=== PATIENT | male | born 1950 | race Caucasian/White ===

== ENCOUNTER 2018-12-03 08:35 | Outpatient (CLI) | payer MEDICARE, BC, SELFPAY ==
[2018-12-03 10:14] LABS: Iron 223 ug/dL (50-175); Total Iron Binding Capacity 273 ug/dL (250-450); Transferrin Sat 82 % (20-55)
[2018-12-03 10:16] LABS: ALT 80 U/L (12-78); AST 41 U/L (15-37); Albumin 3.8 g/dL (3.4-5.0); Alkaline Phosphatase 127 U/L (46-116); Anion Gap 10.1 mmol/L (3-11); BUN 16 mg/dL (7-18); Bilirubin, Total 2.1 mg/dL (0.2-1.0); CO2 24.9 mmol/L (21.0-32.0); CREATININE 0.82 mg/dL (0.70-1.30); Calcium 9.1 mg/dL (8.5-10.1); Chloride 102 mmol/L (98-107); Cholesterol 116 mg/dL (50-200); Glucose 197 mg/dL (70-100); HDL Cholesterol 35 mg/dL (40-60); LDL CHOLESTEROL 56 mg/dL (<100); Potassium 4.4 mmol/L (3.5-5.1); Sodium 137 mmol/L (136-145); Total Protein 6.8 g/dL (6.4-8.2); Triglyceride 192 mg/dL (30-150)
== END 2018-12-03 08:55 ==
PROVIDERS: PCP Family Medicine; Visit Provider Family Medicine
DX: Z83.49 Family history of other endocrine, nutritional and metabolic diseases (principal); E78.89 Other lipoprotein metabolism disorders; E61.1 Iron deficiency
CPT/HCPCS: 80053; 80061; 83721; 83540; 83550

== ENCOUNTER → 2019-12-08 09:24 | Outpatient (BNVA) | payer MEDICARE, BC, SELFPAY | PROVIDERS: PCP Family Medicine; Referring Provider Family Medicine; Visit Provider Surgery | DX: Z12.11 Encounter for screening for malignant neoplasm of colon (principal); Z80.0 Family history of malignant neoplasm of digestive organs; Z86.010 Personal history of colon polyps; I10 Essential (primary) hypertension | CPT/HCPCS: 99212 ==

== ENCOUNTER 2019-12-23 08:56 | Day surgery (SDC) | payer MEDICARE, BC, SELFPAY ==
[2019-12-23 09:04] VITALS: BP 154/88; PULSE 72; RESP 18; TEMP 36.9; O2SAT 98
[2019-12-23] MEDS: Lactated Ringers 1,000 ML 100 ML IV (09:28)
--- NOTE | 2019-12-23 11:37 | PDOC.DSDIS_ITS ---
Discharge Plan Disposition Patient Disposition: HOME Condition: Good Discharge Details Reason For Visit: colon scope Attending Provider: Liberty Hoffman Primary Care Provider: Dayron Gusman Home Meds and New Rx's Prescriptions: No Action glucosamine-chondroitin [Osteo Bi-Flex] 250-200 mg tablet 1 tab PO QPC RF: 0 turmeric 400 mg capsule 400 mg PO DAILY RF: 0 magnesium gluconate [Mag-G] 27 mg magnesium (500 mg) tablet 27 mg PO DAILY RF: 0 cholecalciferol (vitamin D3) 10 mcg (400 unit) capsule 10 mcg PO DAILY RF: 0 Discharge Instructions Additional Instructions: Findings: nl colon Follow up: repeat in 5 yrs depending on health status Please call if you develop: fevers >101.5 Nausea or Vomiting Abdominal pain that is not transient DAY SURGERY UNIT POST COLONOSCOPY INSTRUCTIONS 1. Because there will be medication in your system for the next 24 hours, you may feel a little sleepy. Your coordination will be affected. Therefore: a. Do not drive or operate dangerous equipment for 24 hours. b. Do not drink alcohol beverages for 24 hours (not even beer). c. Plan to go home and rest for the day. 2. Generally there are no restrictions on your activity after a day or so has gone by, but you may feel a bit fatigued for a few days. 3 After you arrive home you may have a light meal and return to a normal diet as you can tolerate it without feeling sick to your stomach. 4. After surgery, you may feel pain or discomfort. This should be only transient, but if it persists please contact your doctor. 5. If there are any questions regarding the findings of your procedure, please f eel free to contact your doctor. 6. If you are unable to contact your doctor with a problem, contact the hospital at [phone]. 7. Continue all your regular medications unless directed otherwise. I understand the above instructions and have no questions. Signature of Patient or Responsible Adult Escort Date/Time Name of Responsible Adult Escort Signature of Nurse Date/Time Activity:: no strenuous acitity or lifting over 20#'s x 24 hrs Diet:: small light meals x 24 hrs. Discharge Orders Discharge Orders: Discharge Order (Routine); Ordered 12/23/19 Ordered By: Liberty Hoffman DS: Diagnosis Discharge Diagnosis (1) Family hx of colon cancer: Status: Acute (2) Encounter for colonoscopy in patient with family history of colon cancer: Status: Acute (3) Colorectal polyps: Status: Acute
--- NOTE | 2019-12-23 11:53 | COLE_ITS ---
Date of service: 12/23/19 Time of Service: 11:53 Colonoscopy Report Date of procedure: 12/23/19 Pre-op diagnosis general: polyps/1st degree family member w/ CRC <age 60 at Dg Post-op diagnosis procedure note: other (nl colon today ) Procedure: CE Surgeon: Liberty Hoffman Anesthesia proc note operative: MAC Estimated blood loss (mL): 0 Pathology: other Complications: None Disposition: same day Prep: Miralax/Dulcolax Retraction Time: 12 mins Procedure Description: After informed consent was obtained the patient was taken to the procedure room and placed in a left decubitous position. Monitors were applied and a time out was done. The patients name, date of , procedure, allergies to medications and metal in their body was reviewed. The patient was then sedated. Once sedated and comfortable a rectal exam was done. External exam was normal. Internal exam revealed a normal sphincter tone and no palpable masses. The prostate nl. The scope was then introduced and retrofelexed. No internal hemorrhoids were identified. The scope was then advanced to the cecum [w/out difficulty. The TI and appendiceal orifice were identified. The prep was adequate. There was retained solid debry coating the juan on the right colon. Lesions smaller than <5mm may have been missed. . The scope was then slowly retracted over 12 minutes back into the rectum. Polyps were removed at none. no diverticular or AVMS'd noted. The scope was removed and the patient was woken up and taken back to Same day surgery in stable condition. The patient tolerated the procedure well and there were no immediate complications. Follow up: The patient should follow up in 5 years- if the pt is still n good health, unless they develop changes in bowel habits or other new gastroi ntestinal complaints.
[2019-12-23 12:15] VITALS: BP 121/79; PULSE 61; RESP 16; TEMP 36.1; O2SAT 98
== END 2019-12-23 12:35 | disposition home or self-care (01) ==
PROVIDERS: PCP Family Medicine; Visit Provider Surgery
PROC: 0DJD8ZZ Inspection of Lower Intestinal Tract, Via Natural or Artificial Opening Endoscopic (ICD-10-PCS; CPT 45378; principal; 2019-12-23 10:00)
DX: Z12.11 Encounter for screening for malignant neoplasm of colon (principal); Z86.010 Personal history of colon polyps; Z80.0 Family history of malignant neoplasm of digestive organs
CPT/HCPCS: G0105; J2001

== ENCOUNTER 2020-02-14 02:39 | Outpatient (CLI) | payer MEDICARE, BC, SELFPAY ==
[2020-02-14 08:09] LABS: Abs Immature Grans 0.01 10^3/uL (0.0-0.06); Absolute Basophil Count 0.03 10^3/uL (0.0-0.2); Absolute Eosinophil Count 0.23 10^3/uL (0.0-0.7); Absolute Lymphocyte Count 2.05 10^3/uL (1.2-3.4); Absolute Monocyte Count 0.63 10^3/uL (0.1-0.8); Absolute Neutrophil Count 2.82 10^3/uL (1.2-6.7); Basophils % 0.5; HCT 47.2 % (40.0-50.0); HGB 15.9 g/dL (13.5-17.5); Immature Grans % 0.2; Lymphocytes % 35.5; MCH 32.4 pg (27.0-33.0); MCHC 33.7 % (32.0-36.0); MCV 96.3 fL (80-95); MPV 11.2 fL (8.0-11.0); Monocytes % 10.9; Neutrophils % 48.9; Nucleated RBC 0 %; Platelet Count 193 10^3/uL (130-400); RDW 11.8 % (11.8-14.1); RDW-SD 41.5 fL; WBC 5.77 10^3/uL (4.4-10.8)
[2020-02-14 09:06] LABS: Iron 270 ug/dL (65-175); Total Iron Binding Capacity 292 ug/dL (250-450); Transferrin Sat 92 % (20-55)
[2020-02-14 09:18] LABS: TSH (W/Ref FT4) 2.26 uIU/mL (0.36-3.74)
[2020-02-14 09:43] LABS: ALT 94 U/L (16-63); AST 42 U/L (15-37); Albumin 3.9 g/dL (3.4-5.0); Alkaline Phosphatase 116 U/L (46-116); Anion Gap 10.5 mmol/L (3-11); BUN 18 mg/dL (7-18); Bilirubin, Total 2.1 mg/dL (0.2-1.0); CO2 26.5 mmol/L (21.0-32.0); CREATININE 0.86 mg/dL (0.70-1.30); Calcium 9.3 mg/dL (8.5-10.1); Chloride 101 mmol/L (98-107); Glucose 217 mg/dL (74-106); Potassium 4.4 mmol/L (3.5-5.1); Sodium 138 mmol/L (136-145)
[2020-02-14 09:46] LABS: Ferritin 1630 ng/mL (26-388)
[2020-02-17 11:00] LABS: Testosterone, Total 428 ng/dL (240-950)
== END 2020-02-14 02:59 ==
PROVIDERS: PCP Family Medicine; Visit Provider Family Medicine
DX: E83.19 Other disorders of iron metabolism (principal); R53.83 Other fatigue
CPT/HCPCS: 36415; 80053; 84403; 82728; 83540; 83550; 84443; 85025

== ENCOUNTER 2020-03-31 09:00 | Outpatient (CLI) | payer MEDICARE, BC, SELFPAY ==
[2020-03-31 12:28] LABS: Abs Immature Grans 0.01 10^3/uL (0.0-0.06); Absolute Basophil Count 0.03 10^3/uL (0.0-0.2); Absolute Eosinophil Count 0.19 10^3/uL (0.0-0.7); Absolute Lymphocyte Count 2.29 10^3/uL (1.2-3.4); Absolute Monocyte Count 0.64 10^3/uL (0.1-0.8); Absolute Neutrophil Count 3.32 10^3/uL (1.2-6.7); Basophils % 0.5; Eosinophils % 2.9; HCT 45.7 % (40.0-50.0); HGB 15.5 g/dL (13.5-17.5); Immature Grans % 0.2; Lymphocytes % 35.3; MCH 32.6 pg (27.0-33.0); MCHC 33.9 % (32.0-36.0); MCV 96.2 fL (80-95); MPV 11.5 fL (8.0-11.0); Monocytes % 9.9; Neutrophils % 51.2; Nucleated RBC 0 %; Platelet Count 203 10^3/uL (130-400); RBC 4.75 10^6/uL (4.36-5.78); RDW 11.7 % (11.8-14.1); RDW-SD 41.7 fL; WBC 6.48 10^3/uL (4.4-10.8)
[2020-03-31 13:50] LABS: Ferritin 1766 ng/mL (26-388)
== END 2020-03-31 09:20 ==
PROVIDERS: PCP Family Medicine; Visit Provider Internal Medicine
DX: E83.119 Hemochromatosis, unspecified (principal)
CPT/HCPCS: 36415; 82728; 85025

== ENCOUNTER 2020-04-07 04:20 | Outpatient (CLI) | payer MEDICARE, BC, SELFPAY ==
[2020-04-07 12:47] LABS: Abs Immature Grans 0.01 10^3/uL (0.0-0.06); Absolute Basophil Count 0.04 10^3/uL (0.0-0.2); Absolute Eosinophil Count 0.24 10^3/uL (0.0-0.7); Absolute Lymphocyte Count 2.27 10^3/uL (1.2-3.4); Absolute Monocyte Count 0.72 10^3/uL (0.1-0.8); Absolute Neutrophil Count 2.79 10^3/uL (1.2-6.7); Basophils % 0.7; HCT 43.2 % (40.0-50.0); HGB 15.4 g/dL (13.5-17.5); Immature Grans % 0.2; Lymphocytes % 37.4; MCH 33.2 pg (27.0-33.0); MCHC 35.6 % (32.0-36.0); MCV 93.1 fL (80-95); MPV 11.4 fL (8.0-11.0); Monocytes % 11.9; Neutrophils % 45.8; Nucleated RBC 0 %; Platelet Count 193 10^3/uL (130-400); RBC 4.64 10^6/uL (4.36-5.78); RDW 11.8 % (11.8-14.1); RDW-SD 40.1 fL; WBC 6.07 10^3/uL (4.4-10.8)
[2020-04-07 14:11] LABS: Ferritin 1631 ng/mL (26-388)
== END 2020-04-07 04:40 ==
PROVIDERS: PCP Family Medicine; Visit Provider Internal Medicine
DX: E83.119 Hemochromatosis, unspecified (principal)
CPT/HCPCS: 36415; 82728; 85025

== ENCOUNTER 2020-04-14 02:13 | Outpatient (CLI) | payer MEDICARE, BC, SELFPAY ==
[2020-04-14 12:20] LABS: Abs Immature Grans 0.02 10^3/uL (0.0-0.06); Absolute Basophil Count 0.04 10^3/uL (0.0-0.2); Absolute Eosinophil Count 0.26 10^3/uL (0.0-0.7); Absolute Lymphocyte Count 2.55 10^3/uL (1.2-3.4); Absolute Neutrophil Count 2.95 10^3/uL (1.2-6.7); Basophils % 0.6; HCT 44.2 % (40.0-50.0); HGB 15.3 g/dL (13.5-17.5); Immature Grans % 0.3; Lymphocytes % 39.1; MCH 32.6 pg (27.0-33.0); MCHC 34.6 % (32.0-36.0); MPV 11.8 fL (8.0-11.0); Monocytes % 10.7; Neutrophils % 45.3; Nucleated RBC 0 %; Platelet Count 187 10^3/uL (130-400); RDW 11.8 % (11.8-14.1); RDW-SD 40.8 fL; WBC 6.52 10^3/uL (4.4-10.8)
[2020-04-14 13:56] LABS: Ferritin 1652 ng/mL (26-388)
== END 2020-04-14 02:33 ==
PROVIDERS: PCP Family Medicine; Visit Provider Internal Medicine
DX: E83.118 Other hemochromatosis (principal)
CPT/HCPCS: 36415; 82728; 85025

== ENCOUNTER 2020-04-21 02:26 | Outpatient (CLI) | payer MEDICARE, BC, SELFPAY ==
[2020-04-21 12:26] LABS: Abs Immature Grans 0.01 10^3/uL (0.0-0.06); Absolute Basophil Count 0.04 10^3/uL (0.0-0.2); Absolute Eosinophil Count 0.24 10^3/uL (0.0-0.7); Absolute Lymphocyte Count 2.88 10^3/uL (1.2-3.4); Absolute Monocyte Count 0.87 10^3/uL (0.1-0.8); Absolute Neutrophil Count 3.26 10^3/uL (1.2-6.7); Basophils % 0.5; Eosinophils % 3.3; HCT 44.6 % (40.0-50.0); HGB 15.4 g/dL (13.5-17.5); Immature Grans % 0.1; Lymphocytes % 39.5; MCHC 34.5 % (32.0-36.0); MCV 95.5 fL (80-95); MPV 11.6 fL (8.0-11.0); Monocytes % 11.9; Neutrophils % 44.7; Nucleated RBC 0 %; Platelet Count 205 10^3/uL (130-400); RBC 4.67 10^6/uL (4.36-5.78); RDW 11.9 % (11.8-14.1); RDW-SD 41.2 fL
[2020-04-21 14:25] LABS: Ferritin 1671 ng/mL (26-388)
== END 2020-04-21 02:46 ==
PROVIDERS: PCP Family Medicine; Visit Provider Internal Medicine
DX: E83.119 Hemochromatosis, unspecified (principal)
CPT/HCPCS: 36415; 82728; 85025

== ENCOUNTER 2020-04-28 08:18 | Outpatient (CLI) | payer MEDICARE, BC, SELFPAY ==
[2020-04-28 12:25] LABS: MCH 32.8 pg (27.0-33.0); MCHC 34.1 % (32.0-36.0); MCV 96.1 fL (80-95); MPV 11.6 fL (8.0-11.0); Platelet Count 199 10^3/uL (130-400); RBC 4.58 10^6/uL (4.36-5.78); RDW 11.9 % (11.8-14.1); RDW-SD 41.5 fL; WBC 5.97 10^3/uL (4.4-10.8)
[2020-04-28 13:54] LABS: Ferritin 1535 ng/mL (26-388)
== END 2020-04-28 08:38 ==
PROVIDERS: PCP Family Medicine; Visit Provider Internal Medicine
DX: E83.119 Hemochromatosis, unspecified (principal)
CPT/HCPCS: 36415; 85027; 99195; 82728

== ENCOUNTER 2020-05-05 01:59 | Outpatient (CLI) | payer MEDICARE, BC, SELFPAY ==
[2020-05-05 12:20] LABS: Abs Immature Grans 0.04 10^3/uL (0.0-0.06); Absolute Basophil Count 0.04 10^3/uL (0.0-0.2); Absolute Eosinophil Count 0.21 10^3/uL (0.0-0.7); Absolute Lymphocyte Count 1.98 10^3/uL (1.2-3.4); Absolute Monocyte Count 0.66 10^3/uL (0.1-0.8); Absolute Neutrophil Count 3.12 10^3/uL (1.2-6.7); Basophils % 0.7; Eosinophils % 3.5; HCT 41.6 % (40.0-50.0); HGB 14.2 g/dL (13.5-17.5); Immature Grans % 0.7; Lymphocytes % 32.7; MCH 32.9 pg (27.0-33.0); MCHC 34.1 % (32.0-36.0); MCV 96.3 fL (80-95); MPV 11.4 fL (8.0-11.0); Monocytes % 10.9; Neutrophils % 51.5; Nucleated RBC 0 %; Platelet Count 187 10^3/uL (130-400); RBC 4.32 10^6/uL (4.36-5.78); RDW 11.9 % (11.8-14.1); RDW-SD 41.9 fL; WBC 6.05 10^3/uL (4.4-10.8)
[2020-05-05 13:20] LABS: Ferritin 1494 ng/mL (26-388)
== END 2020-05-05 02:19 ==
PROVIDERS: PCP Family Medicine; Visit Provider Internal Medicine
DX: E83.119 Hemochromatosis, unspecified (principal)
CPT/HCPCS: 36415; 99195; 82728; 85025

== ENCOUNTER 2020-05-05 04:08 | Outpatient (RCR) | payer MEDICARE, BC, SELFPAY | END 2020-05-06 23:59 | disposition home or self-care (01) | LOC: INF 04:08 | PROVIDERS: PCP Family Medicine; Visit Provider Nurse Practitioner Adult Health | DX: E83.119 Hemochromatosis, unspecified (principal) | CPT/HCPCS: 99195 ==

== ENCOUNTER 2020-05-12 01:51 | Outpatient (CLI) | payer MEDICARE, BC, SELFPAY ==
[2020-05-12 12:38] LABS: Abs Immature Grans 0.01 10^3/uL (0.0-0.06); Absolute Basophil Count 0.03 10^3/uL (0.0-0.2); Absolute Eosinophil Count 0.17 10^3/uL (0.0-0.7); Absolute Lymphocyte Count 2.06 10^3/uL (1.2-3.4); Absolute Monocyte Count 0.64 10^3/uL (0.1-0.8); Absolute Neutrophil Count 3.04 10^3/uL (1.2-6.7); Basophils % 0.5; Eosinophils % 2.9; Immature Grans % 0.2; Lymphocytes % 34.6; MCH 32.9 pg (27.0-33.0); MCHC 33.3 % (32.0-36.0); MCV 98.8 fL (80-95); MPV 11.9 fL (8.0-11.0); Monocytes % 10.8; Nucleated RBC 0 %; Platelet Count 215 10^3/uL (130-400); RBC 4.25 10^6/uL (4.36-5.78); RDW 12.7 % (11.8-14.1); RDW-SD 45.6 fL; WBC 5.95 10^3/uL (4.4-10.8)
[2020-05-12 13:27] LABS: Ferritin 920 ng/mL (26-388)
== END 2020-05-12 02:11 ==
PROVIDERS: Internal Medicine; PCP Family Medicine; Visit Provider Student in an Organized Health Care Education/Training Program
DX: E83.119 Hemochromatosis, unspecified (principal)
CPT/HCPCS: 36415; 99195; 82728; 85025

== ENCOUNTER 2020-05-19 00:42 | Outpatient (CLI) | payer MEDICARE, BC, SELFPAY ==
[2020-05-19 12:35] LABS: Abs Immature Grans 0.02 10^3/uL (0.0-0.06); Absolute Basophil Count 0.02 10^3/uL (0.0-0.2); Absolute Eosinophil Count 0.21 10^3/uL (0.0-0.7); Absolute Lymphocyte Count 1.89 10^3/uL (1.2-3.4); Absolute Monocyte Count 0.59 10^3/uL (0.1-0.8); Absolute Neutrophil Count 3.17 10^3/uL (1.2-6.7); Basophils % 0.3; Eosinophils % 3.6; HCT 39.2 % (40.0-50.0); HGB 13.1 g/dL (13.5-17.5); Immature Grans % 0.3; MCH 33.3 pg (27.0-33.0); MCHC 33.4 % (32.0-36.0); MCV 99.7 fL (80-95); MPV 11.7 fL (8.0-11.0); Neutrophils % 53.8; Nucleated RBC 0 %; Platelet Count 203 10^3/uL (130-400); RBC 3.93 10^6/uL (4.36-5.78); RDW 13.4 % (11.8-14.1); RDW-SD 49.1 fL
[2020-05-19 13:21] LABS: Ferritin 796 ng/mL (26-388)
== END 2020-05-19 01:02 ==
PROVIDERS: PCP Family Medicine; Visit Provider Internal Medicine
DX: E83.119 Hemochromatosis, unspecified (principal)
CPT/HCPCS: 36415; 99195; 82728; 85025

== ENCOUNTER 2020-05-26 02:22 | Outpatient (CLI) | payer MEDICARE, BC, SELFPAY ==
[2020-05-26 12:15] LABS: Abs Immature Grans 0.01 10^3/uL (0.0-0.06); Absolute Basophil Count 0.03 10^3/uL (0.0-0.2); Absolute Eosinophil Count 0.16 10^3/uL (0.0-0.7); Absolute Lymphocyte Count 1.87 10^3/uL (1.2-3.4); Absolute Monocyte Count 0.59 10^3/uL (0.1-0.8); Absolute Neutrophil Count 3.01 10^3/uL (1.2-6.7); Basophils % 0.5; Eosinophils % 2.8; HCT 40.8 % (40.0-50.0); HGB 13.7 g/dL (13.5-17.5); Immature Grans % 0.2; MCH 33.6 pg (27.0-33.0); MCHC 33.6 % (32.0-36.0); MPV 11.4 fL (8.0-11.0); Monocytes % 10.4; Neutrophils % 53.1; Nucleated RBC 0 %; Platelet Count 203 10^3/uL (130-400); RBC 4.08 10^6/uL (4.36-5.78); RDW 13.4 % (11.8-14.1); WBC 5.67 10^3/uL (4.4-10.8)
[2020-05-26 12:36] LABS: Ferritin 739 ng/mL (26-388)
== END 2020-05-26 02:42 ==
PROVIDERS: PCP Family Medicine; Visit Provider Internal Medicine
DX: E83.119 Hemochromatosis, unspecified (principal)
CPT/HCPCS: 36415; 99195; 82728; 85025

== ENCOUNTER 2020-06-02 05:31 | Outpatient (RCR) | payer MEDICARE, BC, SELFPAY | END 2020-06-05 23:59 | disposition home or self-care (01) | LOC: INF 05:31 | PROVIDERS: PCP Family Medicine; Visit Provider Nurse Practitioner Adult Health | DX: E83.119 Hemochromatosis, unspecified (principal) | CPT/HCPCS: 99195 ==

== ENCOUNTER 2020-06-02 12:04 | Outpatient (CLI) | payer MEDICARE, BC, SELFPAY ==
[2020-06-02 12:26] LABS: Abs Immature Grans 0.01 10^3/uL (0.0-0.06); Absolute Basophil Count 0.04 10^3/uL (0.0-0.2); Absolute Eosinophil Count 0.19 10^3/uL (0.0-0.7); Absolute Lymphocyte Count 1.75 10^3/uL (1.2-3.4); Absolute Monocyte Count 0.55 10^3/uL (0.1-0.8); Absolute Neutrophil Count 3.23 10^3/uL (1.2-6.7); Basophils % 0.7; Eosinophils % 3.3; HCT 41.3 % (40.0-50.0); HGB 13.8 g/dL (13.5-17.5); Immature Grans % 0.2; Lymphocytes % 30.3; MCH 33.4 pg (27.0-33.0); MCHC 33.4 % (32.0-36.0); MPV 11.3 fL (8.0-11.0); Monocytes % 9.5; Nucleated RBC 0 %; Platelet Count 220 10^3/uL (130-400); RBC 4.13 10^6/uL (4.36-5.78); RDW 13.2 % (11.8-14.1); RDW-SD 48.7 fL; WBC 5.77 10^3/uL (4.4-10.8)
[2020-06-02 13:59] LABS: Ferritin 652 ng/mL (26-388)
== END 2020-06-02 12:24 ==
PROVIDERS: PCP Family Medicine; Visit Provider Internal Medicine
DX: E83.119 Hemochromatosis, unspecified (principal)
CPT/HCPCS: 36415; 99195; 82728; 85025

== ENCOUNTER 2020-06-06 04:17 | Outpatient (CLI) | payer MEDICARE, BC, SELFPAY ==
--- NOTE | 2020-06-06 11:30 | NS.NUTBLAN_ITS ---
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 He reports his main concerns are learning desired BG ranges, glucometer use and basic DM edu. He brought his Accu check one touch and test strips with him to this appt. He is on metformin 500 mg BID and states he has been tolerating it well with no GI issues. He comes to [facility] for phlebotomy to reduce his Fe levels which are above normal limits r/t this condition. He also asked about food choices r/t Fe content. He admitted to needing the information about his DM dx delivered in increments to help with retention and comprehension. His BG was taken in the office at this appointment and was 332mg/dl (H) ~ 2 hrs post prandial. We reviewed his typical two meal/ day schedule and food choices. He stated that he had scrambled eggs and 5 pieces toast for breakfast today. INTERVENTION: Explained and demonstrated the use of his glucometer. He was able to perform the finger stick to reveal his elevated BG (332). Recommended 5 day food record with fingersticks 4x day X5 days to include FBG and 1.5 hrs postprandial X 3 meal periods. Encouraged patient to include a light lunch in his meal routine and explained CHO's. He will need further instruction on CHO counting. Recommended and demonstrated carbs and cals phone eliud to help with CHO intake. Reviewed risks and benefits of staying in desired BG and A1c ranges. 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 Take home literature on DM was provided for Matthias's review. MONITOR and EVAL: Matthias is scheduled for 1 hour appointment with this RD on JUN 25 at 1430 to continue his DM education. He was receptive at this appointment but slightly overwhelmed and appreciated smaller amounts of information in two sessions. We will cover CHO counting, recommended cals, CHO's, fluids and Fe content of foods at is next meeting. Time Spent Face to face: 30 minutes / 2 units
== END 2020-06-06 04:37 ==
PROVIDERS: PCP Family Medicine; Visit Provider Dietitian, Registered
DX: E11.9 Type 2 diabetes mellitus without complications (principal); E83.118 Other hemochromatosis; Z79.84 Long term (current) use of oral hypoglycemic drugs; Z71.3 Dietary counseling and surveillance
CPT/HCPCS: 97802

== ENCOUNTER 2020-06-09 12:07 | Outpatient (CLI) | payer MEDICARE, BC, SELFPAY ==
[2020-06-09 12:27] LABS: Abs Immature Grans 0.02 10^3/uL (0.0-0.06); Absolute Basophil Count 0.02 10^3/uL (0.0-0.2); Absolute Eosinophil Count 0.19 10^3/uL (0.0-0.7); Absolute Lymphocyte Count 1.84 10^3/uL (1.2-3.4); Absolute Monocyte Count 0.56 10^3/uL (0.1-0.8); Absolute Neutrophil Count 2.91 10^3/uL (1.2-6.7); Basophils % 0.4; Eosinophils % 3.4; HCT 42.2 % (40.0-50.0); Immature Grans % 0.4; Lymphocytes % 33.2; MCH 33.7 pg (27.0-33.0); MCHC 33.2 % (32.0-36.0); MCV 101.7 fL (80-95); MPV 11.2 fL (8.0-11.0); Monocytes % 10.1; Neutrophils % 52.5; Nucleated RBC 0 %; Platelet Count 229 10^3/uL (130-400); RBC 4.15 10^6/uL (4.36-5.78); RDW 12.6 % (11.8-14.1); RDW-SD 47.5 fL; WBC 5.54 10^3/uL (4.4-10.8)
[2020-06-09 12:52] LABS: Ferritin 493 ng/mL (26-388)
== END 2020-06-09 12:27 ==
PROVIDERS: PCP Family Medicine; Visit Provider Internal Medicine
DX: E83.119 Hemochromatosis, unspecified (principal)
CPT/HCPCS: 36415; 99195; 82728; 85025

== ENCOUNTER 2020-06-16 05:02 | Outpatient (CLI) | payer MEDICARE, BC, SELFPAY ==
[2020-06-16 13:29] LABS: Abs Immature Grans 0.01 10^3/uL (0.0-0.06); Absolute Basophil Count 0.04 10^3/uL (0.0-0.2); Absolute Eosinophil Count 0.15 10^3/uL (0.0-0.7); Absolute Monocyte Count 0.73 10^3/uL (0.1-0.8); Absolute Neutrophil Count 2.99 10^3/uL (1.2-6.7); Basophils % 0.7; Eosinophils % 2.5; HCT 39.8 % (40.0-50.0); HGB 13.2 g/dL (13.5-17.5); Immature Grans % 0.2; Lymphocytes % 34.9; MCH 33.4 pg (27.0-33.0); MCHC 33.2 % (32.0-36.0); MCV 100.8 fL (80-95); MPV 12.1 fL (8.0-11.0); Monocytes % 12.1; Neutrophils % 49.6; Nucleated RBC 0 %; Platelet Count 233 10^3/uL (130-400); RBC 3.95 10^6/uL (4.36-5.78); RDW 12.1 % (11.8-14.1); RDW-SD 45.1 fL; WBC 6.02 10^3/uL (4.4-10.8)
[2020-06-16 13:37] LABS: Ferritin 361 ng/mL (26-388)
== END 2020-06-16 05:22 ==
PROVIDERS: PCP Family Medicine; Visit Provider Internal Medicine
DX: E83.119 Hemochromatosis, unspecified (principal)
CPT/HCPCS: 36415; 99195; 82728; 85025

== ENCOUNTER 2020-06-23 02:14 | Outpatient (CLI) | payer MEDICARE, BC, SELFPAY ==
[2020-06-23 12:23] LABS: Abs Immature Grans 0.01 10^3/uL (0.0-0.06); Absolute Basophil Count 0.04 10^3/uL (0.0-0.2); Absolute Eosinophil Count 0.21 10^3/uL (0.0-0.7); Absolute Lymphocyte Count 2.21 10^3/uL (1.2-3.4); Absolute Monocyte Count 0.68 10^3/uL (0.1-0.8); Absolute Neutrophil Count 2.53 10^3/uL (1.2-6.7); Basophils % 0.7; Eosinophils % 3.7; HCT 38.8 % (40.0-50.0); Immature Grans % 0.2; Lymphocytes % 38.9; MCH 33.7 pg (27.0-33.0); MCHC 33.5 % (32.0-36.0); MCV 100.5 fL (80-95); MPV 11.3 fL (8.0-11.0); Neutrophils % 44.5; Nucleated RBC 0 %; Platelet Count 229 10^3/uL (130-400); RBC 3.86 10^6/uL (4.36-5.78); RDW-SD 44.7 fL; WBC 5.68 10^3/uL (4.4-10.8)
[2020-06-23 13:24] LABS: Ferritin 282 ng/mL (26-388)
== END 2020-06-23 02:34 ==
PROVIDERS: PCP Family Medicine; Visit Provider Internal Medicine
DX: E83.119 Hemochromatosis, unspecified (principal)
CPT/HCPCS: 36415; 99195; 82728; 85025

== ENCOUNTER 2020-06-29 02:13 | Outpatient (CLI) | payer MEDICARE, BC, SELFPAY ==
[2020-06-29 09:44] LABS: Abs Immature Grans 0.01 10^3/uL (0.0-0.06); Absolute Basophil Count 0.02 10^3/uL (0.0-0.2); Absolute Lymphocyte Count 1.42 10^3/uL (1.2-3.4); Absolute Monocyte Count 0.51 10^3/uL (0.1-0.8); Absolute Neutrophil Count 2.66 10^3/uL (1.2-6.7); Basophils % 0.4; Eosinophils % 4.1; HCT 38.1 % (40.0-50.0); HGB 12.6 g/dL (13.5-17.5); Immature Grans % 0.2; Lymphocytes % 29.5; MCH 33.9 pg (27.0-33.0); MCHC 33.1 % (32.0-36.0); MCV 102.4 fL (80-95); Monocytes % 10.6; Neutrophils % 55.2; Nucleated RBC 0 %; Platelet Count 217 10^3/uL (130-400); RBC 3.72 10^6/uL (4.36-5.78); RDW 12.1 % (11.8-14.1); RDW-SD 45.6 fL; WBC 4.82 10^3/uL (4.4-10.8)
[2020-06-29 10:43] LABS: Ferritin 218 ng/mL (26-388)
== END 2020-06-29 02:33 ==
PROVIDERS: PCP Family Medicine; Visit Provider Internal Medicine
DX: E83.119 Hemochromatosis, unspecified (principal)
CPT/HCPCS: 36415; 99195; 82728; 85025

== ENCOUNTER 2020-07-06 02:26 | Outpatient (RCR) | payer MEDICARE, BC, SELFPAY | END 2020-07-06 23:59 | disposition home or self-care (01) | LOC: INF 02:26 | PROVIDERS: PCP Family Medicine; Visit Provider Internal Medicine | DX: E83.119 Hemochromatosis, unspecified (principal) | CPT/HCPCS: 99195 ==

== ENCOUNTER 2020-07-06 11:59 | Outpatient (CLI) | payer MEDICARE, BC, SELFPAY ==
[2020-07-06 12:11] LABS: Abs Immature Grans 0.01 10^3/uL (0.0-0.06); Absolute Basophil Count 0.02 10^3/uL (0.0-0.2); Absolute Monocyte Count 0.64 10^3/uL (0.1-0.8); Absolute Neutrophil Count 3.51 10^3/uL (1.2-6.7); Basophils % 0.3; Eosinophils % 3.2; HCT 38.2 % (40.0-50.0); HGB 12.7 g/dL (13.5-17.5); Immature Grans % 0.2; Lymphocytes % 30.3; MCH 33.2 pg (27.0-33.0); MCHC 33.2 % (32.0-36.0); MCV 99.7 fL (80-95); Monocytes % 10.2; Neutrophils % 55.8; Nucleated RBC 0 %; Platelet Count 208 10^3/uL (130-400); RBC 3.83 10^6/uL (4.36-5.78); RDW 11.9 % (11.8-14.1); RDW-SD 43.8 fL; WBC 6.28 10^3/uL (4.4-10.8)
[2020-07-06 12:35] LABS: Ferritin 183 ng/mL (26-388)
== END 2020-07-06 12:19 ==
PROVIDERS: PCP Family Medicine; Visit Provider Internal Medicine
DX: E83.119 Hemochromatosis, unspecified (principal)
CPT/HCPCS: 36415; 99195; 82728; 85025

== ENCOUNTER 2020-07-13 11:55 | Outpatient (CLI) | payer MEDICARE, BC, SELFPAY ==
[2020-07-13 12:34] LABS: Abs Immature Grans 0.01 10^3/uL (0.0-0.06); Absolute Basophil Count 0.01 10^3/uL (0.0-0.2); Absolute Eosinophil Count 0.03 10^3/uL (0.0-0.7); Absolute Lymphocyte Count 1.28 10^3/uL (1.2-3.4); Absolute Neutrophil Count 2.53 10^3/uL (1.2-6.7); Basophils % 0.2; Eosinophils % 0.7; HCT 38.8 % (40.0-50.0); Immature Grans % 0.2; MCH 33.3 pg (27.0-33.0); MCHC 33.5 % (32.0-36.0); MCV 99.5 fL (80-95); MPV 11.3 fL (8.0-11.0); Monocytes % 9.4; Neutrophils % 59.5; Nucleated RBC 0 %; Platelet Count 154 10^3/uL (130-400); RDW 11.8 % (11.8-14.1); RDW-SD 42.8 fL; WBC 4.26 10^3/uL (4.4-10.8)
[2020-07-13 12:59] LABS: Ferritin 260 ng/mL (26-388)
== END 2020-07-13 12:15 ==
PROVIDERS: PCP Family Medicine; Visit Provider Internal Medicine
DX: E83.119 Hemochromatosis, unspecified (principal)
CPT/HCPCS: 36415; 99195; 82728; 85025

== ENCOUNTER 2020-08-04 01:46 | Outpatient (CLI) | payer MEDICARE, BC, SELFPAY ==
[2020-08-04 12:36] LABS: Abs Immature Grans 0.02 10^3/uL (0.0-0.06); Absolute Basophil Count 0.04 10^3/uL (0.0-0.2); Absolute Eosinophil Count 0.31 10^3/uL (0.0-0.7); Absolute Lymphocyte Count 1.84 10^3/uL (1.2-3.4); Absolute Monocyte Count 0.75 10^3/uL (0.1-0.8); Absolute Neutrophil Count 3.42 10^3/uL (1.2-6.7); Basophils % 0.6; Eosinophils % 4.9; HCT 40.3 % (40.0-50.0); HGB 13.2 g/dL (13.5-17.5); Immature Grans % 0.3; Lymphocytes % 28.8; MCH 31.7 pg (27.0-33.0); MCHC 32.8 % (32.0-36.0); MCV 96.6 fL (80-95); MPV 10.3 fL (8.0-11.0); Monocytes % 11.8; Neutrophils % 53.6; Nucleated RBC 0 %; Platelet Count 284 10^3/uL (130-400); RBC 4.17 10^6/uL (4.36-5.78); RDW 12.6 % (11.8-14.1); RDW-SD 44.6 fL; WBC 6.38 10^3/uL (4.4-10.8)
[2020-08-04 13:06] LABS: Ferritin 173 ng/mL (26-388)
== END 2020-08-04 02:06 ==
PROVIDERS: PCP Family Medicine; Visit Provider Internal Medicine
DX: E83.119 Hemochromatosis, unspecified (principal)
CPT/HCPCS: 36415; 99195; 82728; 85025

== ENCOUNTER 2020-08-04 04:52 | Outpatient (RCR) | payer MEDICARE, BC, SELFPAY ==
[2020-08-04] MEDS: Normal Saline Flush 10 ML SYR IVP (14:10)
== END 2020-08-06 23:59 | disposition home or self-care (01) ==
LOC: INF 04:52
PROVIDERS: PCP Family Medicine; Visit Provider Internal Medicine
DX: E83.119 Hemochromatosis, unspecified (principal)
CPT/HCPCS: 99195

== ENCOUNTER 2020-08-11 01:02 | Outpatient (CLI) | payer MEDICARE, BC, SELFPAY ==
[2020-08-18 12:18] LABS: Abs Immature Grans 0.01 10^3/uL (0.0-0.06); Absolute Basophil Count 0.04 10^3/uL (0.0-0.2); Absolute Eosinophil Count 0.38 10^3/uL (0.0-0.7); Absolute Lymphocyte Count 2.19 10^3/uL (1.2-3.4); Absolute Monocyte Count 0.79 10^3/uL (0.1-0.8); Absolute Neutrophil Count 2.93 10^3/uL (1.2-6.7); Basophils % 0.6; HCT 42.4 % (40.0-50.0); HGB 14.2 g/dL (13.5-17.5); Immature Grans % 0.2; Lymphocytes % 34.5; MCH 31.9 pg (27.0-33.0); MCHC 33.5 % (32.0-36.0); MCV 95.3 fL (80-95); MPV 11.4 fL (8.0-11.0); Monocytes % 12.5; Neutrophils % 46.2; Nucleated RBC 0 %; Platelet Count 186 10^3/uL (130-400); RBC 4.45 10^6/uL (4.36-5.78); RDW-SD 45.8 fL; WBC 6.34 10^3/uL (4.4-10.8)
[2020-08-18 12:41] LABS: Ferritin 113 ng/mL (26-388)
== END 2020-09-03 23:59 | disposition home or self-care (01) ==
PROVIDERS: PCP Family Medicine; Visit Provider Internal Medicine
DX: E83.119 Hemochromatosis, unspecified (principal)
CPT/HCPCS: 36415; 99195; 82728; 85025

== ENCOUNTER 2020-08-25 12:06 | Outpatient (CLI) | payer MEDICARE, BC, SELFPAY ==
[2020-08-25 12:58] LABS: Abs Immature Grans 0.01 10^3/uL (0.0-0.06); Absolute Basophil Count 0.06 10^3/uL (0.0-0.2); Absolute Eosinophil Count 0.34 10^3/uL (0.0-0.7); Absolute Lymphocyte Count 2.24 10^3/uL (1.2-3.4); Absolute Monocyte Count 0.72 10^3/uL (0.1-0.8); Absolute Neutrophil Count 3.74 10^3/uL (1.2-6.7); Basophils % 0.8; Eosinophils % 4.8; Ferritin 73 ng/mL (26-388); HCT 40.4 % (40.0-50.0); HGB 13.6 g/dL (13.5-17.5); Immature Grans % 0.1; Lymphocytes % 31.5; MCH 32.1 pg (27.0-33.0); MCHC 33.7 % (32.0-36.0); MCV 95.3 fL (80-95); MPV 11.7 fL (8.0-11.0); Monocytes % 10.1; Neutrophils % 52.7; Nucleated RBC 0 %; Platelet Count 218 10^3/uL (130-400); RBC 4.24 10^6/uL (4.36-5.78); RDW 13.1 % (11.8-14.1); RDW-SD 46.2 fL; WBC 7.11 10^3/uL (4.4-10.8)
== END 2020-08-25 12:07 | disposition home or self-care (01) ==
LOC: LBO 12:07
PROVIDERS: PCP Family Medicine; Visit Provider Internal Medicine
DX: E83.119 Hemochromatosis, unspecified (principal)
CPT/HCPCS: 36415; 82728; 85025

== ENCOUNTER 2020-09-01 01:46 | Outpatient (CLI) | payer MEDICARE, BC, SELFPAY ==
[2020-09-01 12:30] LABS: Abs Immature Grans 0.01 10^3/uL (0.0-0.06); Absolute Basophil Count 0.04 10^3/uL (0.0-0.2); Absolute Eosinophil Count 0.33 10^3/uL (0.0-0.7); Absolute Monocyte Count 0.81 10^3/uL (0.1-0.8); Absolute Neutrophil Count 2.95 10^3/uL (1.2-6.7); Basophils % 0.6; HCT 39.9 % (40.0-50.0); HGB 13.2 g/dL (13.5-17.5); Immature Grans % 0.2; Lymphocytes % 36.7; MCH 31.7 pg (27.0-33.0); MCHC 33.1 % (32.0-36.0); MCV 95.7 fL (80-95); MPV 11.5 fL (8.0-11.0); Monocytes % 12.4; Neutrophils % 45.1; Nucleated RBC 0 %; Platelet Count 232 10^3/uL (130-400); RBC 4.17 10^6/uL (4.36-5.78); RDW 13.2 % (11.8-14.1); RDW-SD 46.5 fL; WBC 6.54 10^3/uL (4.4-10.8)
[2020-09-01 12:57] LABS: Ferritin 48 ng/mL (26-388)
== END 2020-09-01 01:47 | disposition home or self-care (01) ==
LOC: LBO 01:46
PROVIDERS: PCP Family Medicine; Visit Provider Internal Medicine
DX: E83.119 Hemochromatosis, unspecified (principal)
CPT/HCPCS: 36415; 82728; 85025

== ENCOUNTER 2020-09-01 04:40 | Outpatient (RCR) | payer MEDICARE, BC, SELFPAY | END 2020-09-03 23:59 | disposition home or self-care (01) | LOC: INF 04:40 | PROVIDERS: PCP Family Medicine; Visit Provider Internal Medicine | DX: E83.118 Other hemochromatosis (principal) | CPT/HCPCS: 99195 ==

== ENCOUNTER 2020-09-08 02:15 | Outpatient (RCR) | payer MEDICARE, BC, SELFPAY | END 2020-10-04 23:59 | disposition home or self-care (01) | LOC: LBO 02:15 | PROVIDERS: PCP Family Medicine; Visit Provider Internal Medicine ==

== ENCOUNTER 2020-10-06 01:42 | Outpatient (RCR) | payer MEDICARE, BC, SELFPAY | END 2020-11-03 23:59 | disposition home or self-care (01) | LOC: LBO 01:42 | PROVIDERS: PCP Family Medicine; Visit Provider Internal Medicine | DX: Z53.9 Procedure and treatment not carried out, unspecified reason (principal) ==

== ENCOUNTER 2020-12-21 02:56 | Outpatient (CLI) | payer MEDICARE, BC, SELFPAY ==
[2020-12-21 09:11] LABS: Abs Immature Grans 0.02 10^3/uL (0.0-0.06); Absolute Basophil Count 0.03 10^3/uL (0.0-0.2); Absolute Eosinophil Count 0.27 10^3/uL (0.0-0.7); Absolute Lymphocyte Count 2.01 10^3/uL (1.2-3.4); Basophils % 0.5; Eosinophils % 4.7; HCT 45.4 % (40.0-50.0); HGB 15.4 g/dL (13.5-17.5); Immature Grans % 0.3; Lymphocytes % 35.1; MCHC 33.9 % (32.0-36.0); MCV 94.2 fL (80-95); MPV 11.3 fL (8.0-11.0); Monocytes % 12.2; Neutrophils % 47.2; Nucleated RBC 0 %; Platelet Count 202 10^3/uL (130-400); RBC 4.82 10^6/uL (4.36-5.78); RDW 12.3 % (11.8-14.1); RDW-SD 42.8 fL; WBC 5.73 10^3/uL (4.4-10.8)
[2020-12-21 09:40] LABS: Ferritin 104 ng/mL (26-388)
== END 2020-12-21 02:57 | disposition home or self-care (01) ==
PROVIDERS: PCP Family Medicine; Visit Provider Internal Medicine
DX: E83.119 Hemochromatosis, unspecified (principal)
CPT/HCPCS: 36415; 82728; 85025

== ENCOUNTER 2021-01-04 09:30 | Outpatient (RCR) | payer MEDICARE, BC, SELFPAY ==
[2021-01-04 08:56] LABS: Ferritin 103 ng/mL (26-388)
[2021-01-04] MEDS: Normal Saline Flush 10 ML SYR IVP (10:35)
== END 2021-02-03 23:59 | disposition home or self-care (01) ==
LOC: INF 09:30
PROVIDERS: PCP Family Medicine; Visit Provider Nurse Practitioner Adult Health
DX: E83.118 Other hemochromatosis (principal)
CPT/HCPCS: 36415; 99195; 82728

== ENCOUNTER 2021-02-05 02:17 | Outpatient (CLI) | payer MEDICARE, BC, SELFPAY ==
[2021-02-05 08:46] LABS: Abs Immature Grans 0.01 10^3/uL (0.0-0.06); Absolute Basophil Count 0.04 10^3/uL (0.0-0.2); Absolute Eosinophil Count 0.26 10^3/uL (0.0-0.7); Absolute Lymphocyte Count 1.95 10^3/uL (1.2-3.4); Absolute Monocyte Count 0.58 10^3/uL (0.1-0.8); Absolute Neutrophil Count 3.12 10^3/uL (1.2-6.7); Basophils % 0.7; Eosinophils % 4.4; HCT 44.4 % (40.0-50.0); HGB 14.7 g/dL (13.5-17.5); Immature Grans % 0.2; Lymphocytes % 32.7; MCHC 33.1 % (32.0-36.0); MCV 96.5 fL (80-95); MPV 11.1 fL (8.0-11.0); Monocytes % 9.7; Neutrophils % 52.3; Nucleated RBC 0 %; Platelet Count 195 10^3/uL (130-400); RDW 11.9 % (11.8-14.1); RDW-SD 42.5 fL; WBC 5.96 10^3/uL (4.4-10.8)
[2021-02-05 09:55] LABS: Ferritin 72 ng/mL (26-388)
== END 2021-02-05 02:18 | disposition home or self-care (01) ==
LOC: LBO 02:17
PROVIDERS: PCP Family Medicine; Visit Provider Internal Medicine
DX: E83.19 Other disorders of iron metabolism (principal); E83.119 Hemochromatosis, unspecified
CPT/HCPCS: 36415; 82728; 85025

== ENCOUNTER 2021-03-07 02:56 | Outpatient (CLI) | payer MEDICARE, BC, SELFPAY ==
[2021-03-07 09:21] LABS: Abs Immature Grans 0.01 10^3/uL (0.0-0.06); Absolute Basophil Count 0.04 10^3/uL (0.0-0.2); Absolute Eosinophil Count 0.24 10^3/uL (0.0-0.7); Absolute Lymphocyte Count 2.18 10^3/uL (1.2-3.4); Absolute Monocyte Count 0.86 10^3/uL (0.1-0.8); Absolute Neutrophil Count 3.17 10^3/uL (1.2-6.7); Basophils % 0.6; Eosinophils % 3.7; HCT 45.9 % (40.0-50.0); HGB 15.5 g/dL (13.5-17.5); Immature Grans % 0.2; Lymphocytes % 33.5; MCH 32.3 pg (27.0-33.0); MCHC 33.8 % (32.0-36.0); MCV 95.6 fL (80-95); MPV 11.3 fL (8.0-11.0); Monocytes % 13.2; Neutrophils % 48.8; Nucleated RBC 0 %; Platelet Count 195 10^3/uL (130-400); RDW 11.8 % (11.8-14.1); RDW-SD 41.1 fL
[2021-03-07 09:58] LABS: Ferritin 85 ng/mL (26-388)
== END 2021-03-07 02:57 | disposition home or self-care (01) ==
LOC: LBO 02:56
PROVIDERS: PCP Family Medicine; Visit Provider Internal Medicine
DX: E83.19 Other disorders of iron metabolism (principal); E83.119 Hemochromatosis, unspecified
CPT/HCPCS: 36415; 82728; 85025

== ENCOUNTER 2021-04-04 03:26 | Outpatient (CLI) | payer MEDICARE, BC, SELFPAY ==
[2021-04-04 09:24] LABS: Abs Immature Grans 0.01 10^3/uL (0.0-0.06); Absolute Basophil Count 0.03 10^3/uL (0.0-0.2); Absolute Eosinophil Count 0.25 10^3/uL (0.0-0.7); Absolute Lymphocyte Count 2.29 10^3/uL (1.2-3.4); Absolute Monocyte Count 0.74 10^3/uL (0.1-0.8); Absolute Neutrophil Count 3.25 10^3/uL (1.2-6.7); Basophils % 0.5; Eosinophils % 3.8; HGB 15.5 g/dL (13.5-17.5); Immature Grans % 0.2; Lymphocytes % 34.9; MCH 32.2 pg (27.0-33.0); MCHC 33.7 % (32.0-36.0); MCV 95.4 fL (80-95); MPV 11.4 fL (8.0-11.0); Monocytes % 11.3; Neutrophils % 49.3; Nucleated RBC 0 %; Platelet Count 188 10^3/uL (130-400); RBC 4.82 10^6/uL (4.36-5.78); RDW 11.5 % (11.8-14.1); RDW-SD 40.3 fL; WBC 6.57 10^3/uL (4.4-10.8)
[2021-04-04 09:51] LABS: Ferritin 109 ng/mL (26-388)
== END 2021-04-04 03:27 | disposition home or self-care (01) ==
PROVIDERS: Internal Medicine; PCP Family Medicine; Visit Provider Nurse Practitioner Adult Health
DX: E83.19 Other disorders of iron metabolism (principal); E83.119 Hemochromatosis, unspecified
CPT/HCPCS: 36415; 82728; 85025

== ENCOUNTER 2021-06-06 02:38 | Outpatient (CLI) | payer MEDICARE, BC, SELFPAY ==
[2021-06-06 09:23] LABS: Abs Immature Grans 0.01 10^3/uL (0.0-0.06); Absolute Basophil Count 0.04 10^3/uL (0.0-0.2); Absolute Eosinophil Count 0.34 10^3/uL (0.0-0.7); Absolute Lymphocyte Count 1.82 10^3/uL (1.2-3.4); Absolute Monocyte Count 0.62 10^3/uL (0.1-0.8); Absolute Neutrophil Count 2.82 10^3/uL (1.2-6.7); Basophils % 0.7; HCT 44.1 % (40.0-50.0); HGB 14.8 g/dL (13.5-17.5); Immature Grans % 0.2; Lymphocytes % 32.2; MCH 32.1 pg (27.0-33.0); MCHC 33.6 % (32.0-36.0); MCV 95.7 fL (80-95); MPV 11.2 fL (8.0-11.0); Neutrophils % 49.9; Nucleated RBC 0 %; Platelet Count 175 10^3/uL (130-400); RBC 4.61 10^6/uL (4.36-5.78); RDW 11.8 % (11.8-14.1); RDW-SD 41.4 fL; WBC 5.65 10^3/uL (4.4-10.8)
[2021-06-06 10:01] LABS: Ferritin 94 ng/mL (26-388)
[2021-06-06 10:10] LABS: ALT 81 U/L (16-63); AST 41 U/L (15-37); Alkaline Phosphatase 94 U/L (46-116); Anion Gap 6.5 mmol/L (3-11); BUN 17 mg/dL (7-18); Bilirubin, Total 1.2 mg/dL (0.2-1.0); CO2 28.5 mmol/L (21.0-32.0); CREATININE 0.9 mg/dL (0.70-1.30); Calcium 9.4 mg/dL (8.5-10.1); Chloride 104 mmol/L (98-107); Glucose 177 mg/dL (74-106); Potassium 4.8 mmol/L (3.5-5.1); Sodium 139 mmol/L (136-145); Total Protein 7.1 g/dL (6.4-8.2)
== END 2021-06-06 02:39 | disposition home or self-care (01) ==
LOC: LBO 02:38
PROVIDERS: PCP Family Medicine; Visit Provider Nurse Practitioner Adult Health
DX: E83.119 Hemochromatosis, unspecified; E83.19 Other disorders of iron metabolism
CPT/HCPCS: 36415; 80053; 82728; 85025

== ENCOUNTER 2021-06-26 15:41 | Emergency (ER) | payer MEDICARE, BC, SELFPAY ==
[2021-06-26] VITALS (25 sets, daily range): BP systolic 118–167; BP diastolic 73–98; PULSE 74–99; RESP 9–26; TEMP 36.8; O2SAT 94–99
--- NOTE | 2021-06-26 16:00 | RT.EKG_ITS ---
APPROVED REPORT Exam: Resting ECG Reason for Exam: disorientation Patient Location: E HR:80 bpm ECG Measurements Heart Rate 80 AXIS [place] 156 P 13 QRSd 97 QRS -17 QT 390 T 53 QTc 450 Conclusion Sinus rhythm...normal P axis, V-rate 60- 99
--- NOTE | 2021-06-26 16:15 | DI.RAD_ITS ---
Exam(s) XR PORTABLE CHEST AP EXAM: XR PORTABLE CHEST AP CLINICAL HISTORY: ams TECHNIQUE: 2D digital imaging was performed of the chest. One image was obtained. An AP view was ob tained. COMPARISON: No exams were available for comparison FINDINGS: MEDIASTINUM: Normal. HEART: Normal. PULMONARY VASCULATURE: Normal. LUNGS: Clear. PLEURAL SPACE: No pleural effusion or pneumothorax. BONE:Within normal limits for the patient's age. OTHER FINDINGS:Normal. IMPRESSION: No acute pulmonary findings. DATA REPOSITORY: RADIATION DOSE DELIVERED:
--- NOTE | 2021-06-26 16:15 | DI.CT_ITS ---
Exam(s) CT BRAIN NECK CTA EXAM: CT BRAIN NECK CTA CLINICAL HISTORY: right pronator drift, gait ataxia, confusion. TECHNIQUE: Imaging Protocol: Axial CT angiography was performed with multi-slice acquisition and mu lti-planar and/or 3D reconstructions. CONTRAST MATERIAL: Intravenous: Omnipaque 350 Contrast volume:85 mL COMPARISON: No exams were available for comparison FINDINGS: CT Head W/O and W: Ventricles and Extra axial spaces: Please see below. Hemorrhage: None. Cerebral parenchyma: There is a large area of decreased attenuation involving the left parietal occip ital lobe with extension into the splenium of the corpus callosum. There is also hypointense signal seen in the left frontal lobe. There is intraparenchymal hemorrhage associated with this area in the left parietal and occipital lobes. There is also parenchymal calcification in the left posterior pa rietal lobe. There is effacement of the occipital horn and atrium of the left lateral ventricle. Th ere is a 3 mm rightward midline shift. Midline shift: None. Brainstem/Cerebellum: Normal. Calvarium: Normal. Visualized Paranasal sinuses/Mastoids: There is mucosal thickening in the maxillary sinuses. The rem aining visualized paranasal sinuses and mastoid air cells are clear. Soft Tissues: Unremarkable. Enhancement: Please see above. CTA Neck W: Common Carotid: Right: No dissection, occlusion or significant stenosis. Left: No dissection, occlusion or significant stenosis. External Carotid: Right: No occlusion or significant stenosis. Left: No occlusion or significant stenosis. Internal Carotid: Right: No dissection, occlusion or significant stenosis. Left: No dissection, occlusion or significant stenosis. Vertebral Artery: Right: No dissection, occlusion or significant stenosis. Left: No dissection, occlusion or significant stenosis. Lung Apices: Normal. Bones: Within normal limits for the patient's age. Soft Tissues: Normal. Thyroid gland: Unremarkable. CTA Brain W: Internal Carotid Arteries: Atherosclerosis. No occlusion or significant stenosis. No aneurysm is id entified. Anterior Cerebral Arteries: Right: No aneurysm, occlusion or significant stenosis. Left: No aneurysm, occlusion or significant stenosis. Middle Cerebral Arteries: Right: No aneurysm, occlusion or significant stenosis. Left: No aneurysm, occlusion or significant stenosis. Posterior Cerebral Arteries: Right: No aneurysm, occlusion or significant stenosis. 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 Left: No aneurysm, occlusion or significant stenosis. Vertebral Arteries: Right: No aneurysm, occlusion or significant stenosis. Left: No aneurysm, occlusion or significant stenosis. Basilar Artery: No aneurysm, occlusion or significant stenosis. IMPRESSION: 1. No large vessel occlusion or significant stenosis on the CT angiography of the head. 2. Large area of hypodensity involving the rights left cerebral hemisphere particularly the left katelyn etal occipital lobe. There is extension into the splenium of the corpus callosum. Intraparenchymal hemorrhage in calcification is present. There is mass effect from the vasogenic edema causing efface ment of the occipital horn and atrium of the left lateral ventricle. There is an approximately 3 mm rightward shift of the midline. The findings are suspicious for a malignancy such as a glioma. MRI of the brain without and with contrast is recommended for further evaluation. 3. No occlusion or significant stenosis on the CT angiography of the neck. RADIATION DOSE DELIVERED: 2,166.38mGy.cm Total DLP DATA REPOSITORY: All CT scans at this facility are submitted to the National Radiology Data Registry (NRDR) Dose Index Registry (DIR) with the [employer] (ACR). RADIATION OPTIMIZATION: All CT scans at this facility use at least one of these dose optimization te chniques: automated exposure control; mA and/or kV adjustment per patient size (includes targeted exa ms where dose is matched to clinical indication); or iterative reconstruction.
[2021-06-26 16:32] LABS: Abs Immature Grans 0.02 10^3/uL (0.0-0.06); Absolute Basophil Count 0.05 10^3/uL (0.0-0.2); Absolute Eosinophil Count 0.25 10^3/uL (0.0-0.7); Absolute Lymphocyte Count 2.77 10^3/uL (1.2-3.4); Absolute Monocyte Count 0.82 10^3/uL (0.1-0.8); Absolute Neutrophil Count 3.77 10^3/uL (1.2-6.7); Basophils % 0.7; Eosinophils % 3.3; HCT 44.1 % (40.0-50.0); HGB 15.1 g/dL (13.5-17.5); Immature Grans % 0.3; Lymphocytes % 36.1; MCH 32.5 pg (27.0-33.0); MCHC 34.2 % (32.0-36.0); MPV 11.8 fL (8.0-11.0); Monocytes % 10.7; Neutrophils % 48.9; Nucleated RBC 0 %; Platelet Count 217 10^3/uL (130-400); RBC 4.64 10^6/uL (4.36-5.78); RDW 11.9 % (11.8-14.1); WBC 7.68 10^3/uL (4.4-10.8)
--- NOTE | 2021-06-26 16:44 | W.ED.GENAD ---
Discharge Plan Disposition Patient Disposition: [facility] Condition: Critical Discharge Details Clinical Impression: Neoplasm of brain causing mass effect on adjacent structures Primary Care Provider: Dayron Gusman ED Provider: Milagro Nath Home Meds and New Rx's Prescriptions: Continued (DME) blood-glucose meter Misc See Rx Instructions .ROUTE .MEDSUPPLY Qty: 1 RF: 0 (DME) lancets Misc See Rx Instructions .ROUTE .MEDSUPPLY Qty: 200 RF: 6 metformin 500 mg tablet 1,000 mg PO BID Qty: 180 RF: 3 glucosamine-chondroitin [Osteo Bi-Flex] 250-200 mg tablet 1 tab PO QPC RF: 0 turmeric 400 mg capsule 400 mg PO DAILY RF: 0 magnesium gluconate [Mag-G] 27 mg magnesium (500 mg) tablet 27 mg PO DAILY RF: 0 cholecalciferol (vitamin D3) 10 mcg (400 unit) capsule 10 mcg PO DAILY RF: 0 Jardiance 10 mg tablet 10 mg PO DAILY Qty: 90 RF: 3 Hold Instructions: Home Medication placed on hold at Doctor's office lisinopril 10 mg tablet 10 mg PO DAILY Qty: 90 RF: 1 (DME) Blood Glucose Test Strip See Rx Instructions .ROUTE .MEDSUPPLY Qty: 100 RF: 6 Medical Decision Making Patient remains alert and oriented x2 Has a neurological exam has not changed throughout his visit in this emergency department Vitals and blood pressure have been stable CT scan impression with left parieto-occipital lobe with extension into the splenium of the left corpus callosum with calcifications and hemorrhage concerning for brain malignancy, vasogenic edema with mass-effect and effacement of the left lateral ventricle approximately 3 mm of rightward midline shift All findings were discussed with patient and his partner Filiberto I did contact [facility] initially, after 1.5 hours, they returned my phone call stating that they were at capacity and cannot accept the patient I discussed the CT scan findings with Dr. Garcia, neurosurgery and he recommends 1 g of Keppra but to hold on Decadron at this time Dr. Garcia asked that we transfer patient to the emergency room at [facility], care was accepted by Dr. Hdz, emergency department physician Patient's neurological exam has not changed at this encounter He was given 1 g of Keppra in the emergency room There has been no seizure that he No telemetry findings Blood sugar at discharge 130 Full CODE STATUS Patient is stable for transport at this time Medical Records Medical records reviewed: Yes I reviewed the patient's medical records. Lab Data Lab results reviewed: Yes I reviewed the patient's lab results. HPI General Mode of arrival: ambulatory. Date/Time Provider Initiated Documentation: 06/26/21 15:43. Limitations to Documentation: no limitations. Information obtained by: patient. HPI Narrative: This 70-year-old male with history of hypertension, hereditary hemochromatosis, diabetes presents for report of disorientation . He states he got into his car approximately an hour prior to arrival and forgot how to start the vehicle and shift. He states that this this is a second episode in the past month where he felt similar to this. He denies any dizziness or headaches. States he is having some trouble walking as he feels off balance. This is new for him. He states he had an unusual episode in several weeks ago as well. He states the symptoms resolved in between. He states of the last episode Of shaking to his left leg and was having trouble getting worse. He states now he still having some confusion. He denies any incontinence of urine or stool. He denies any current numbness or tingling. He denies any focal weakness. He denies any falls or head injuries. Denies any anticoagulation. Denies history of cancer. Denies any chest pain or shortness of breath. Denies any cough. Denies seizure history. Denies alcohol consumption or drug use. Related Data Home Medications Medication Instructions Recorded Confirmed cholecalciferol (vitamin D3) 10 10 mcg PO DAILY 11/22/19 06/26/21 mcg (400 unit) capsule glucosamine-chondroitin 250 mg-200 1 tab PO QPC tab 11/22/19 06/26/21 mg tablet magnesium gluconate 27 mg 27 mg PO DAILY tab 11/22/19 06/26/21 magnesium (500 mg) tablet turmeric 400 mg capsule 400 mg PO DAILY 11/22/19 06/26/21 blood-glucose meter #1 each 02/24/20 06/26/21 lancets #200 each 02/24/20 06/26/21 blood sugar diagnostic #100 each 03/21/20 06/26/21 empagliflozin 10 mg tablet 10 mg PO DAILY #90 tab 11/27/20 06/26/21 lisinopril 10 mg tablet 10 mg PO DAILY #90 tab 02/27/21 06/26/21 metformin 500 mg tablet 1,000 mg PO BID #180 tab 06/04/21 06/26/21 Previous Rx's Medication Instructions Recorded blood-glucose meter #1 each 02/24/20 lancets #200 each 02/24/20 blood sugar diagnostic #100 each 03/21/20 empagliflozin 10 mg tablet 10 mg PO DAILY #90 tab 11/27/20 lisinopril 10 mg tablet 10 mg PO DAILY #90 tab 02/27/21 metformin 500 mg tablet 1,000 mg PO BID #180 tab 06/04/21 Allergies Allergy/AdvReac Type Severity Reaction Status Date / Time bee venom protein (honey bee) Allergy Severe Anaphylaxsi Verified 06/26/21 16:09 s General Stated Complaint: AMS/LOC ALYCIA: 2 Review of Systems All systems reviewed & are unremarkable except as noted in HPI and below PFSH All Active Problems (Updated 06/26/21 @ 20:09 by MILDRED Mei) Neoplasm of brain causing mass effect on adjacent structures (Acute) Loss of consciousness (Acute) Essential hypertension (Acute) Iron overload (Acute) 05/22/20 [facility] [place] Hematology 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 [facility] [place] Hematology, phlebotomies to maintain goal of ferritin <100, monthly labs Diabetes mellitus (Chronic) Bronze diabetes (Chronic) Diagnosed 02/23 Family hx of colon cancer (Acute) Encounter for colonoscopy in patient with family history of colon cancer (Acute) Colorectal polyps (Acute) Medical History (Updated 06/26/21 @ 20:09 by MILDRED Mei) Asthma HTN (hypertension) Surgical History (Updated 12/23/19 @ 09:00 by Margoth Hewitt RN) History of colonoscopy x3 No significant past surgical history Family History Father , late 60's Adenocarcinoma Colon and lung Diabetes Sister , age 50 Ovarian cancer Sister Breast cancer FHx: mental illness maybe Bipolar Seizures FH: hemochromatosis Social History (Updated 11/12/18 @ 13:29 by Quyen Guerra RN) Smoking/Tobacco Use Status: Never Smoking risk assessment performed?: Yes Alcohol Intake: current Alcohol Intake frequency: holidays/special occasions only Drug use: Never Substance use type: does not use Household members: significant other Housing: house Communication Needs: Corrective Lenses Education Level: high school Do you need help understanding health information?: Never current occupation: retired Do you think of yourself as: lesbian/damon/homosexual Current gender identity: male What is your relationship status?: living with partner Panel score (0-1 are the most socially isolated patients): 1 Frequency: 5-6 times per week Chen/Hindu: Adventist Seatbelt use: always Helmet use: Yes Drive intox or ride w/intox commercial front load driver: No Working smoke detector in home: Yes Fire extinguisher in home: No Carbon monox detector in home: Yes Do you feel safe at home: Yes Do you feel safe in your relationship?: Yes Exam Const General: cooperative, comfortable and no acute distress HENMT Head: normal to inspection Other: Uvula midline, maintaining airway Eyes Pupils: PERRL EOM: EOM intact bilaterally Neck Other: No carotid bruit Resp Effort & Inspection: normal respiratory effort Auscultation: clear to auscultation bilaterally Cardio Rate: regular rate Rhythm: regular rhythm Heart Sounds: no murmurs Skin General skin exam: no rashes or lesions noted Neuro General: patient alert and oriented (Oriented to person and location only) Cranial Nerves: CN's II-XI intact bilaterally Speech: other Gait: ataxic Motor: strength 5/5 throughout Sensory Exam: no sensory deficits noted Other: Negative heel castillo, positive [id number], positive pronator drift on the right Extrem Other: Distal pulses intact all 4 extremities uvula midline, Course Vital Signs Vital signs: Vital Signs Pulse 83 06/26/21 15:59 Respiratory Rate 15 06/26/21 15:59 Blood Pressure 161/84 H 06/26/21 15:59 Pulse Oximetry 99 06/26/21 15:59 Temperature 36.8 C 06/26/21 16:01 Temperature Source Oral 06/26/21 16:01 Pulse 87 06/26/21 16:06 Pulse 82 06/26/21 16:20 Respiratory Rate 16 06/26/21 16:39 Respiratory Effort Non-Labored 06/26/21 16:39 Respiratory Depth Normal 06/26/21 16:39 Respiratory Pattern Normal 06/26/21 16:39 Blood Pressure 157/95 H 06/26/21 16:06 Blood Pressure Mean 112 06/26/21 16:06 Blood Pressure Position Supine 06/26/21 16:01 Pulse Oximetry 98 06/26/21 16:20 Oxygen Delivery Method Room Air 06/26/21 16:01 Oxygen Flow Rate 0 06/26/21 16:01 Lab/Test Results Lab/Test Results: Laboratory Tests Range/Units 06/26/21 16:10 WBC (4.4-10.8) 10^3/uL 7.68 RBC (4.36-5.78) 10^6/uL 4.64 Hgb (13.5-17.5) g/dL 15.1 Hct (40.0-50.0) % 44.1 MCV (80-95) fL 95.0 MCH (27.0-33.0) pg 32.5 MCHC (32.0-36.0) % 34.2 RDW (11.8-14.1) % 11.9 Plt Count (130-400) 10^3/uL 217 MPV (8.0-11.0) fL 11.8 H Immature Gran % 0.3 Neutrophils % 48.9 Lymphocytes % 36.1 Monocytes % 10.7 Eosinophils % 3.3 Basophils % 0.7 Nucleated RBC % % 0 Absolute Neutrophils (1.2-6.7) 10^3/uL 3.77 Absolute Lymphocytes (1.2-3.4) 10^3/uL 2.77 Absolute Monocytes (0.1-0.8) 10^3/uL 0.82 H Absolute Eosinophils (0.0-0.7) 10^3/uL 0.25 Absolute Basophils (0.0-0.2) 10^3/uL 0.05 Critical Care Time Critical Care Time Critical Care Time: Yes Total Critical Care Time: 45 Attestation: telemetry monitoring, labs, tertiary care consultation, ct imaging, observation
[2021-06-26 16:52] LABS: ALT 86 U/L (16-63); Albumin 4.2 g/dL (3.4-5.0); Alkaline Phosphatase 123 U/L (46-116); Anion Gap 8.4 mmol/L (3-11); BUN 17 mg/dL (7-18); Bilirubin, Total 1.1 mg/dL (0.2-1.0); CO2 25.6 mmol/L (21.0-32.0); CREATININE 0.9 mg/dL (0.70-1.30); Calcium 8.9 mg/dL (8.5-10.1); Chloride 104 mmol/L (98-107); Glucose 136 mg/dL (74-106); Magnesium 2.1 mg/dL (1.8-2.4); Potassium 4.3 mmol/L (3.5-5.1); Sodium 138 mmol/L (136-145); Total Protein 7.5 g/dL (6.4-8.2); Troponin I < 50 ng/L (<or=60)
--- NOTE | 2021-06-26 17:09 | DI.VRAD_ITS ---
PROCEDURE INFORMATION: Exam: CT Angiography Head With Contrast, Arteriography Exam date and time: 06/26/2021 4:18 PM Age: 70 years old Clinical indication: Other: Right pronator drift, gait ataxia, confusion; Additional info: Right pronator drift, gait ataxia, confusion ? stroke TECHNIQUE: Imaging protocol: Computed tomography angiography of the head with contrast. Exam focused on the arteries. 3D rendering (Not supervised by radiologist): MIP and/or 3D reconstructed images were created by the technologist. Radiation optimization: All CT scans at this facility use at least one of these dose optimization techniques: automated exposure control; mA and/or kV adjustment per patient size (includes targeted exams where dose is matched to clinical indication); or iterative reconstruction. Contrast material: OMNIPAQUE 350; Contrast volume: 100 ml; Contrast route: INTRAVENOUS (IV); COMPARISON: No relevant prior studies available. FINDINGS: ANTERIOR CIRCULATION: Right internal carotid artery: Intracranial atherosclerosis at the right carotid siphon. No significant stenosis or occlusion. Right middle cerebral artery: No flow-limiting stenosis or occlusion. Right anterior cerebral artery: No flow-limiting stenosis or occlusion. Left internal carotid artery: Intracranial atherosclerosis at the left carotid siphon. No significant stenosis or occlusion. Left middle cerebral artery: No flow-limiting stenosis or occlusion. Left anterior cerebral artery: No flow-limiting stenosis or occlusion. POSTERIOR CIRCULATION: Right vertebral artery: No flow-limiting stenosis or occlusion. 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 No occlusion. Basilar artery: No flow-limiting stenosis or occlusion. Right posterior cerebral artery: type origin of the right posterior cerebral artery with hypoplastic right P1 segment. No flow-limiting stenosis or occlusion. Left posterior cerebral artery: No flow-limiting stenosis or occlusion. Brain: Significant vasogenic edema in the left parietooccipital lobe and posterior left frontal lobe with extension into the splenium of the left corpus callosum. Findings are suspicious for an underlying brain malignancy. Associated calcifications in the left parietal lobe and foci of parenchymal hemorrhage in the left occipital lobe and left parietal lobe with relative hypervascularity of the adjacent cortical vessels. Cerebral ventricles: SeeAssociated mass effect with effacement of the posterior horn and atrium of the left lateral ventricle with 3 mm rightward midline shift. Bones/joints: No acute fracture. Soft tissues: Unremarkable. IMPRESSION: 1. Suspected mass in the left parietooccipital lobe with extension into the splenium of the left corpus callosum containing internal calcifications and hemorrhage. Overall findings are suspicious for brain malignancy, possibly an underlying glioma. MRI of the brain with contrast is recommended to further assess. 2. Associated vasogenic edema with mass effect and effacement of the left lateral ventricle. Approximately 3 mm rightward midline shift. 3. No large vessel occlusion or stenosis. PROCEDURE INFORMATION: Exam: CT Angiography Neck With Contrast Exam date and time: 06/26/2021 4:18 PM Age: 70 years old Clinical indication: Other: Right pronator drift, gait ataxia, confusion; Additional info: Right pronator drift, gait ataxia, confusion ? stroke TECHNIQUE: Imaging protocol: Computed tomography angiography of the neck with contrast. 3D rendering (Not supervised by radiologist): MIP and/or 3D reconstructed images were created by the technologist. Radiation optimization: All CT scans at this facility use at least one of these dose optimization techniques: automated exposure control; mA and/or kV adjustment per patient size (includes targeted exams where dose is matched to clinical indication); or iterative reconstruction. Contrast material: OMNIPAQUE 350; Contrast volume: 100 ml; Contrast route: INTRAVENOUS (IV); COMPARISON: No relevant prior studies available. FINDINGS: Right common carotid artery: No stenosis. No dissection or occlusion. Right internal carotid artery: No significant proximal ICA stenosis by NASCET criteria. Right external carotid artery: No occlusion or stenosis of the origin. Left common carotid artery: No stenosis. No dissection or occlusion. Left internal carotid artery: No significant proximal ICA stenosis by NASCET criteria. Left external carotid artery: No occlusion or stenosis of the origin. Right vertebral artery: No stenosis. No dissection or occlusion. Left vertebral artery: No stenosis. No dissection or occlusion. Soft tissues: No significant soft tissue swelling. Bones/joints: Multilevel degenerative changes of the cervical spine. No acute osseous abnormality. Lungs: Biapical pleuroparenchymal scarring. IMPRESSION: No large vessel stenosis or occlusion. REFERENCES: NASCET CRITERIA. The degree of internal carotid artery stenosis is based on NASCET criteria. Normal is no stenosis. Mild is less than 50% stenosis. Moderate is 50-69% stenosis. Severe is 70% to 99% stenosis. Total occlusion is no detectable patent lumen. Dictated and Authenticated by: Brandi Sabillon MD. Ordering:ALVIN Humphrey MD
--- NOTE | 2021-06-26 17:11 | DI.VRAD_ITS ---
PROCEDURE INFORMATION: Exam: XR Chest Exam date and time: 06/26/2021 4:23 PM Age: 70 years old Clinical indication: Other: AMS TECHNIQUE: Imaging protocol: XR of the chest. Views: 1 view. COMPARISON: CT BRAIN NECK CTA 06/26/2021 4:28 PM FINDINGS: Lungs: No focal consolidation. Pleural spaces: Unremarkable. No pleural effusion. No pneumothorax. Heart/Mediastinum: Cardiomediastinal countour within normal limits. Bones/joints: Degenerative changes of the thoracic spine. IMPRESSION: No acute cardiopulmonary process. Dictated and Authenticated by: Brandi Sabillon MD. Ordering:ALVIN Humphrey MD
[2021-06-26 17:18] LABS: Bilirubin Negative (Negative); Blood Large (Negative); Clarity Clear (Clear); Glucose Negative (Negative); Ketones Trace mg/dL (Negative); Leukocyte Esterase Negative (Negative); Nitrite Negative (Negative); Specific Gravity 1.015 (1.005-1.025); Urobilinogen 0.2 EU/dL (Up TO 0.2); pH 5.5 (5-8)
[2021-06-26 17:43] LABS: Bacteria Negative HPF (Negative); C & S Indicated? No; Crystals Negative HPF (Negative); Epithelial Cells Few HPF (Negative); Mucus Negative (Negative); RBC >50 HPF (0-2); WBC Negative HPF (0-5)
[2021-06-26 17:46] LABS: AST 46 U/L (15-37)
[2021-06-26] MEDS: Omnipaque 350 MG/ML 100 ML BTL IV (18:11)
--- NOTE | 2021-06-26 19:44 | NUR.NOTE ---
Nursing Note: Covid swab obtained and sent to lab as ordered.
[2021-06-26] MEDS: levETIRAcetam 1,000 MG in Normal Saline 100 ML 400 MG IVPB (19:56)
[2021-06-26 20:56] LABS: Source Nasal/Nares
[2021-06-26 21:36] LABS: COVID-19 PCR Negative (Negative)
== END 2021-06-26 20:12 ==
PROVIDERS: Emergency Provider Physician Assistant; PCP Family Medicine
DX: C71.9 Malignant neoplasm of brain, unspecified (principal); E11.9 Type 2 diabetes mellitus without complications; R41.0 Disorientation, unspecified; Z20.822 Contact with and (suspected) exposure to COVID-19
CPT/HCPCS: 36415; 36416; 70496; 70498; 80053; 82962; 87635; 93005; 96365; 99291; 71045; 81003; 81015; 83735; 84484; 85025; 93010; J1953; J3490

== ENCOUNTER 2021-07-11 04:01 | Outpatient (CLI) | payer MEDICARE, BC, SELFPAY ==
[2021-07-11 09:20] LABS: Abs Immature Grans 0.26 10^3/uL (0.0-0.06); Absolute Monocyte Count 0.94 10^3/uL (0.1-0.8); Basophils % 0.3; HCT 45.5 % (40.0-50.0); HGB 15.6 g/dL (13.5-17.5); Immature Grans % 1.7; Lymphocytes % 7.2; MCH 32.3 pg (27.0-33.0); MCHC 34.3 % (32.0-36.0); MCV 94.2 fL (80-95); MPV 11.4 fL (8.0-11.0); Monocytes % 6.1; Neutrophils % 84.7; Nucleated RBC 0 %; Platelet Count 211 10^3/uL (130-400); RBC 4.83 10^6/uL (4.36-5.78); RDW 11.4 % (11.8-14.1); RDW-SD 39.2 fL; WBC 15.46 10^3/uL (4.4-10.8)
[2021-07-11 09:25] LABS: Absolute Basophil Count 0.05 10^3/uL (0.0-0.2); Absolute Lymphocyte Count 1.11 10^3/uL (1.2-3.4); Absolute Neutrophil Count 13.09 10^3/uL (1.2-6.7)
[2021-07-11 09:59] LABS: ALT 89 U/L (16-63); AST 31 U/L (15-37); Albumin 3.7 g/dL (3.4-5.0); Alkaline Phosphatase 80 U/L (46-116); BUN 27 mg/dL (7-18); Bilirubin, Total 1.5 mg/dL (0.2-1.0); CREATININE 1.1 mg/dL (0.70-1.30); Calcium 9.2 mg/dL (8.5-10.1); Chloride 97 mmol/L (98-107); Ferritin 202 ng/mL (26-388); Glucose 297 mg/dL (74-106); Potassium 4.3 mmol/L (3.5-5.1); Sodium 135 mmol/L (136-145); Total Protein 6.5 g/dL (6.4-8.2)
== END 2021-07-11 04:02 | disposition home or self-care (01) ==
LOC: LBO 04:02
PROVIDERS: Internal Medicine; PCP Family Medicine; Visit Provider Nurse Practitioner Adult Health
DX: E83.19 Other disorders of iron metabolism (principal); E83.110 Hereditary hemochromatosis
CPT/HCPCS: 36415; 80053; 82728; 85025

== ENCOUNTER 2021-07-20 03:00 | Outpatient (RCR) | payer MEDICARE, BC, SELFPAY | END 2021-08-06 23:59 | disposition home or self-care (01) | LOC: INF 03:00 | PROVIDERS: PCP Family Medicine; Visit Provider Nurse Practitioner Adult Health | DX: E83.119 Hemochromatosis, unspecified (principal) | CPT/HCPCS: 99195 ==

== ENCOUNTER 2021-08-17 01:45 | Outpatient (RCR) | payer MEDICARE, BC, SELFPAY | END 2021-09-03 23:59 | disposition home or self-care (01) | LOC: INF 01:45 | PROVIDERS: PCP Family Medicine; Visit Provider Nurse Practitioner Adult Health | DX: E83.119 Hemochromatosis, unspecified (principal) | CPT/HCPCS: 99195 ==

== ENCOUNTER 2021-08-17 02:09 | Outpatient (CLI) | payer MEDICARE, BC, SELFPAY ==
[2021-08-17 08:28] LABS: Abs Immature Grans 0.15 10^3/uL (0.0-0.06); Absolute Basophil Count 0.05 10^3/uL (0.0-0.2); Absolute Eosinophil Count 0.05 10^3/uL (0.0-0.7); Absolute Lymphocyte Count 1.52 10^3/uL (1.2-3.4); Absolute Monocyte Count 0.93 10^3/uL (0.1-0.8); Absolute Neutrophil Count 6.27 10^3/uL (1.2-6.7); Basophils % 0.6; Eosinophils % 0.6; HCT 39.6 % (40.0-50.0); HGB 13.3 g/dL (13.5-17.5); Immature Grans % 1.7; Lymphocytes % 16.9; MCH 32.9 pg (27.0-33.0); MCHC 33.6 % (32.0-36.0); MPV 9.8 fL (8.0-11.0); Monocytes % 10.4; Neutrophils % 69.8; Nucleated RBC 0 %; RBC 4.04 10^6/uL (4.36-5.78); RDW 14.3 % (11.8-14.1); RDW-SD 51.8 fL; WBC 8.97 10^3/uL (4.4-10.8)
[2021-08-17 08:37] LABS: Platelet Count 148 10^3/uL (130-400)
[2021-08-17 09:07] LABS: Ferritin 257 ng/mL (26-388)
== END 2021-08-17 02:10 | disposition home or self-care (01) ==
LOC: LBO 02:10
PROVIDERS: PCP Family Medicine; Visit Provider Nurse Practitioner Adult Health
DX: E83.118 Other hemochromatosis (principal)
CPT/HCPCS: 36415; 99195; 82728; 85025

== ENCOUNTER 2021-09-14 03:18 | Outpatient (RCR) | payer MEDICARE, BC, SELFPAY | END 2021-10-04 23:59 | disposition home or self-care (01) | LOC: INF 03:18 | PROVIDERS: PCP Family Medicine; Visit Provider Nurse Practitioner Adult Health | DX: E83.119 Hemochromatosis, unspecified (principal) | CPT/HCPCS: 99195 ==

== ENCOUNTER 2021-09-14 04:06 | Outpatient (CLI) | payer MEDICARE, BC, SELFPAY ==
[2021-09-14 08:24] LABS: Abs Immature Grans 0.02 10^3/uL (0.0-0.06); HCT 39.5 % (40.0-50.0); HGB 12.9 g/dL (13.5-17.5); MCH 32.1 pg (27.0-33.0); MCHC 32.7 % (32.0-36.0); MCV 98.3 fL (80-95); MPV 10.3 fL (8.0-11.0); Nucleated RBC 0 %; Platelet Count 217 10^3/uL (130-400); RBC 4.02 10^6/uL (4.36-5.78); RDW 13.5 % (11.8-14.1); RDW-SD 49.5 fL
[2021-09-14 08:43] LABS: Absolute Lymphocyte Count 2.62 10^3/uL (1.2-3.4); Absolute Monocyte Count 0.57 10^3/uL (0.1-0.8); Absolute Neutrophil Count 2.51 10^3/uL (1.2-6.7); Atypical Lymphocytes % 4; Diff Comment Manual Differential; RBC Morphology Normal
[2021-09-14 08:50] LABS: Ferritin 113 ng/mL (26-388)
== END 2021-09-14 04:07 | disposition home or self-care (01) ==
PROVIDERS: PCP Family Medicine; Visit Provider Internal Medicine
DX: E83.110 Hereditary hemochromatosis (principal); E83.19 Other disorders of iron metabolism
CPT/HCPCS: 36415; 99195; 82728; 85025

== ENCOUNTER 2021-10-05 02:34 | Outpatient (CLI) | payer MEDICARE, BC, SELFPAY ==
[2021-10-05 08:36] LABS: Abs Immature Grans 0.01 10^3/uL (0.0-0.06); Absolute Basophil Count 0.05 10^3/uL (0.0-0.2); Absolute Eosinophil Count 0.19 10^3/uL (0.0-0.7); Absolute Lymphocyte Count 1.72 10^3/uL (1.2-3.4); Absolute Monocyte Count 0.53 10^3/uL (0.1-0.8); Absolute Neutrophil Count 2.41 10^3/uL (1.2-6.7); Eosinophils % 3.9; HCT 40.5 % (40.0-50.0); HGB 13.2 g/dL (13.5-17.5); Immature Grans % 0.2; MCH 31.7 pg (27.0-33.0); MCHC 32.6 % (32.0-36.0); MCV 97.1 fL (80-95); MPV 10.8 fL (8.0-11.0); Monocytes % 10.8; Neutrophils % 49.1; Nucleated RBC 0 %; Platelet Count 233 10^3/uL (130-400); RBC 4.17 10^6/uL (4.36-5.78); RDW 11.9 % (11.8-14.1); RDW-SD 42.6 fL; WBC 4.91 10^3/uL (4.4-10.8)
[2021-10-05 09:11] LABS: ALT 65 U/L (16-63); AST 35 U/L (15-37); Albumin 3.7 g/dL (3.4-5.0); Alkaline Phosphatase 106 U/L (46-116); Anion Gap 7.7 mmol/L (3-11); BUN 10 mg/dL (7-18); Bilirubin, Total 1.4 mg/dL (0.2-1.0); CO2 28.3 mmol/L (21.0-32.0); CREATININE 0.9 mg/dL (0.70-1.30); Calcium 9.1 mg/dL (8.5-10.1); Chloride 102 mmol/L (98-107); Ferritin 50 ng/mL (26-388); Glucose 276 mg/dL (74-106); Potassium 4.6 mmol/L (3.5-5.1); Sodium 138 mmol/L (136-145)
== END 2021-10-05 02:35 | disposition home or self-care (01) ==
PROVIDERS: PCP Family Medicine; Visit Provider Internal Medicine
DX: E83.110 Hereditary hemochromatosis (principal); E83.19 Other disorders of iron metabolism
CPT/HCPCS: 36415; 80053; 82728; 85025

== ENCOUNTER 2021-10-20 18:37 | Emergency (ER) | payer MEDICARE, BC, SELFPAY ==
[2021-10-20] VITALS (16 sets, daily range): BP systolic 112–160; BP diastolic 72–90; PULSE 74–86; RESP 12–22; TEMP 36.7; O2SAT 93–98
--- NOTE | 2021-10-20 18:30 | RT.EKG_ITS ---
APPROVED REPORT Exam: Resting ECG Reason for Exam: seizure Patient Location: E HR:86 bpm ECG Measurements Heart Rate 86 AXIS [place] 160 P 46 QRSd 98 QRS -19 QT 394 T 61 QTc 471 Conclusion Sinus rhythm...normal P axis, V-rate 60- 99 sinus rhythm, normal axis, normal intervals, non ischemic
--- NOTE | 2021-10-20 18:54 | DI.CT_ITS ---
Exam(s) CT HEAD WO EXAM: CT HEAD WO CLINICAL HISTORY: ams, possible seizure, known glioma. TECHNIQUE: Imaging Protocol: Axial computed tomography images with coronal and sagittal reformatted images were created and reviewed COMPARISON: CT CT BRAIN NECK CTA from 06/26/2021 FINDINGS: There has been interval left focal parietal craniotomy, most probably for biopsy purposes. The previously described abnormal larger of decreased attenuation in the left parietal occipital ac on is again noted, again associated with some parenchymal calcification and significant edema and mas s effect upon the ipsilateral left lateral ventricle. Appearance is stable when compared to 06/26/20. Associated gyral hyperdensity is unchanged and may be related to simple calcification or cyst ar eas of lesion associated hemorrhage. These are stable. No new additional abnormal areas in the brain. No significant shift of midline structures. IMPRESSION: Interval focal left parietal craniotomy from interval biopsy. Previously described diffusely infiltr ated neoplasm with perilesional edema and regional mass effect in the left parietal occipital region is unchanged. Associated hyperdense areas are again noted and appear unchanged. No new areas of hem orrhage. No shift of midline structures. RADIATION DOSE DELIVERED: 853.53mGy.cm Total DLP DATA REPOSITORY: All CT scans at this facility are submitted to the National Radiology Data Registry (NRDR) Dose Index Registry (DIR) with the [employer] (ACR). RADIATION OPTIMIZATION: All CT scans at this facility use at least one of these dose optimization te chniques: automated exposure control; mA and/or kV adjustment per patient size (includes targeted exa ms where dose is matched to clinical indication); or iterative reconstruction.
--- NOTE | 2021-10-20 19:06 | ED.GENADUL_ITS ---
Discharge Plan Disposition Patient Disposition: ISAIAH FLEMING ([facility]) Condition: Stable Discharge Details Chief Complaint: Seizure Clinical Impression: Glioma of brain, Cerebral edema, Altered mental state Primary Care Provider: Dayron Gusman ED Provider: Black Fuentes Home Meds and New Rx's Prescriptions: No Action (DME) blood-glucose meter Misc See Rx Instructions .ROUTE .MEDSUPPLY Qty: 1 0RF Rx Instructions: To check blood glucose; Dx: E83.119, to maintain HbA1c less than 6.5%; dispense covered brand (DME) lancets Mis See Rx Instructions .ROUTE .MEDSUPPLY Qty: 200 6RF Rx Instructions: Test QD; Dx: E83.119; to keep HbA1c less than 6.5%; dispense insurance preference metformin 500 mg tablet 1,000 mg PO BID Qty: 180 3RF glucosamine-chondroitin [Osteo Bi-Flex] 250-200 mg tablet 1 tab PO QPC 0RF turmeric 400 mg capsule 400 mg PO DAILY 0RF magnesium gluconate [Mag-G] 27 mg magnesium (500 mg) tablet 27 mg PO DAILY 0RF cholecalciferol (vitamin D3) 10 mcg (400 unit) capsule 10 mcg PO DAILY 0RF Jardiance 10 mg tablet 10 mg PO DAILY Qty: 90 3RF Hold Instructions: Home Medication placed on hold at Doctor's office (DME) Blood Glucose Test Strip See Rx Instructions .ROUTE .MEDSUPPLY Qty: 100 6RF Rx Instructions: Test daily; Dx: E11.9; to keep HbA1c less than 6.5%; dispense insurance preference levetiracetam [Keppra] 1,000 mg tablet 1,000 mg PO BID 0RF Rx Instructions: 07/03/21 [facility] [email or web address]] d/c lisinopril 10 mg tablet 10 mg PO DAILY Qty: 90 3RF Medical Decision Making 70-year-old male history of glioma currently being evaluated at [facility] [[email or web address]] for radiation and chemotherapy seen by primary neuro oncologist Dr. Pereira, presents with worsening mental status acutely over the last hour confusion, confused speech, altered gait possible partial seizure activity, moved from triage immediately to bed, noted to be alert however confused, moving all extremities with full strength however less coordinated on right side of body, hemodynamically stable, maintaining airway tolerating secretions, taken immediately for CT of head found to have neoplasm of parietal occipital region with associated edema and regional mass-effect. Keppra IV and dexamethasone have been initiated, basic labs EKG, have counseled patient and family extensively and will likely transfer to [facility] [[email or web address]] for neuro oncology and neurosurgical evaluation. Lower suspicion for infection electrolyte abnormality cardiogenic process or toxicologic process. Family patient amenable to transfer have initiated conversation with transfer center. 19: 51 patient has returned to close to his baseline status per partner. Patient is now moving the right side of his body with more control. No further seizure-like activity in department. Hemodynamically stable. Spoke with [facility] [[email or web address]] neurosurgeon Dr. Hatfield, as well as [facility] [[email or web address]] neurologist Dr. Ibarra, patient has been accepted for transfer with final signout given [facility] physician Dr. Pizarro; patient stable for transfer amenable to transfer. HPI General Date/Time Provider Initiated Documentation: 10/20/21 18:44 . HPI Narrative: 70-year-old male history of glioma currently being followed at [facility] [[email or web address]] by neuro oncologist Dr. Pereira currently being evaluated for radiation and chemotherapy, presents with acute altered mental status while having dinner this evening approximately 1 hour before arrival, change in mental status less responsive slightly confused and unsteady on his feet. History of prior seizures both partial and generalized is on Keppra compliant per his partner. Related Data Home Medications Medication Instructions Recorded Confirmed cholecalciferol (vitamin D3) 10 10 mcg PO DAILY 11/22/19 10/20/21 mcg (400 unit) capsule glucosamine-chondroitin 250 mg-200 1 tab PO QPC tab 11/22/19 10/20/21 mg tablet (Osteo Bi-Flex) magnesium gluconate 27 mg 27 mg PO DAILY tab 11/22/19 10/20/21 magnesium (500 mg) tablet (Mag-G) turmeric 400 mg capsule 400 mg PO DAILY 11/22/19 10/20/21 blood-glucose meter #1 each 02/24/20 10/20/21 lancets #200 each 02/24/20 10/20/21 blood sugar diagnostic (Blood #100 each 03/21/20 10/20/21 Glucose Test) empagliflozin 10 mg tablet 10 mg PO DAILY #90 tab 11/27/20 10/20/21 (Jardiance) metformin 500 mg tablet 1,000 mg PO BID #180 tab 06/04/21 10/20/21 levetiracetam 1,000 mg tablet 1,000 mg PO BID 07/04/21 10/20/21 (Keppra) lisinopril 10 mg tablet 10 mg PO DAILY #90 tab 10/11/21 10/20/21 Previous Rx's Medication Instructions Recorded blood-glucose meter #1 each 02/24/20 lancets #200 each 02/24/20 blood sugar diagnostic (Blood #100 each 03/21/20 Glucose Test) empagliflozin 10 mg tablet 10 mg PO DAILY #90 tab 11/27/20 (Jardiance) metformin 500 mg tablet 1,000 mg PO BID #180 tab 06/04/21 lisinopril 10 mg tablet 10 mg PO DAILY #90 tab 10/11/21 Allergies Allergy/AdvReac Type Severity Reaction Status Date / Time bee venom protein (honey bee) Allergy Severe Anaphylaxsi Verified 10/20/21 18:48 s General Stated Complaint: Seizure ALYCIA: 2 Review of Systems Narrative: Review of Systems Constitutional: negative Eyes: negative ENT: negative Cardiovascular: negative Respiratory: negative Gastrointestinal: negative : negative Musculoskeletal: negative Skin: negative Neurologic: Altered mental status Psych: negative PFSH All Active Problems (Updated 10/20/21 @ 19:54 by Black Fuentes MD) Cerebral edema (Acute) Altered mental state (Acute) Glioma of brain (Acute) Loss of consciousness (Acute) Essential hypertension (Acute) Iron overload (Acute) 05/22/20 [facility] Hematology 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 [facility] Hematology, phlebotomies to maintain goal of ferritin <100, monthly labs Diabetes mellitus (Chronic) Bronze diabetes (Chronic) Diagnosed 02/23 Family hx of colon cancer (Acute) Encounter for colonoscopy in patient with family history of colon cancer (Acute) Colorectal polyps (Acute) Medical History (Updated 10/20/21 @ 19:54 by Black Fuentes MD) Asthma HTN (hypertension) Surgical History (Updated 12/23/19 @ 09:00 by Margoth Hewitt RN) History of colonoscopy x3 No significant past surgical history Family History Father , late 60's Adenocarcinoma Colon and lung Diabetes Sister , age 50 Ovarian cancer Sister Breast cancer FHx: mental illness maybe Bipolar Seizures FH: hemochromatosis Social History (Updated 05/09/19 @ 13:29 by Quyen Guerra RN) Smoking/Tobacco Use Status: Never Smoking risk assessment performed?: Yes Alcohol Intake: current Alcohol Intake frequency: holidays/special occasions only Drug use: Never Substance use type: does not use Household members: significant other Housing: house Communication Needs: Corrective Lenses Education Level: high school Do you need help understanding health information?: Never current occupation: retired Do you think of yourself as: lesbian/damon/homosexual Current gender identity: male What is your relationship status?: living with partner Panel score (0-1 are the most socially isolated patients): 1 Frequency: 5-6 times per week Chen/Mosque: Latter-Day Seatbelt use: always Helmet use: Yes Drive intox or ride w/intox customer service driver: No Working smoke detector in home: Yes Fire extinguisher in home: No Carbon monox detector in home: Yes Do you feel safe at home: Yes Do you feel safe in your relationship?: Yes Exam Narrative Exam Narrative: Physical Examination General: alert, awake, cooperative, slightly confused HEENT: normocephalic, atraumatic; PERRL, EOM intact, conjunctiva normal; no nasal discharge; moist mucous membranes, oral and pharyngeal mucosa normal, tolerating secretions Neck: supple, trachea midline; full ROM Chest: normal to inspection Respiratory: normal respiratory effort, speaking in full sentences, clear to auscultation, no wheezing, rales or rhonchi Cardiac: regular rate, regular rhythm, S1S2 intact, no murmurs rubs or gallops GI: abdomen soft, non-tender, non-distended; no palpable mass or hepatosplenomegaly Skin: no lesions, rashes or trauma appreciated Neuro: AAOx3, slow slightly confused speech, moving both extremities with full strength upper and lower extremities however slower movement and coordination in right upper and right lower extremity Psych: Appropriate mood and affect Course Vital Signs Vital signs: Vital Signs Temperature 36.7 C 10/20/21 18:42 Pulse 84 10/20/21 18:42 Respiratory Rate 22 10/20/21 18:42 Blood Pressure 146/89 H 10/20/21 18:42 Pulse Oximetry 98 10/20/21 18:42 Temperature 36.7 C 10/20/21 18:42 Temperature Source Temporal Artery Scan 10/20/21 18:42 Pulse 84 10/20/21 18:42 Respiratory Rate 10/20/21 18:42 Respiratory Effort Non-Labored 10/20/21 18:42 Blood Pressure 146/89 H 10/20/21 18:42 Blood Pressure Position Supine 10/20/21 18:42 Pulse Oximetry 98 10/20/21 18:42 Oxygen Delivery Method Room Air 10/20/21 18:42 Oxygen Flow Rate 0 10/20/21 18:42 Pain Level 0 10/20/21 18:42 PAWSS Have you Been Recently Intoxicated or Drunk Within the Last 30 days?: Yes Have you Ever Experienced Previous Episodes of Alcohol Withdrawal?: No Have you ever Experienced Withdrawal Seizures?: No Have you ever Experienced Delirium Tremens(DT)s?: No Have you ever undergone Alcohol Rehabilitation Treatment (i.e, inpt ot outpatient treatment programs)?: No Have you ever Experienced Blackouts?: No Have you ever Combined Alcohol with other Downers within the last 90 days?: No Have you ever Combined Alcohol with any other Substance of Abuse during the last 90 days?: No Positive Blood Alcohol level on Presentation? [PCS.BAL]: No Evidence of Increased Autonomic Activity (i.e. HR>120, tremor, sweating, agitation, nausea)?: No Result: 1
--- NOTE | 2021-10-20 19:12 | DI.VRAD_ITS ---
PROCEDURE INFORMATION: Exam: CT Head Without Contrast Exam date and time: 10/20/2021 6:53 PM Age: 70 years old Clinical indication: Altered mental status/memory loss; Confusion or disorientation; Patient HX: AMS, possible seizure, known glioma TECHNIQUE: Imaging protocol: Computed tomography of the head without contrast. Radiation optimization: All CT scans at this facility use at least one of these dose optimization techniques: automated exposure control; mA and/or kV adjustment per patient size (includes targeted exams where dose is matched to clinical indication); or iterative reconstruction. COMPARISON: CT BRAIN NECK CTA 06/26/2021 4:28 PM FINDINGS: Brain: A diffusely infiltrative mass and associated perilesional edema are again seen involving the left parietooccipital region with a few internal irregular hyperdensities all similar in appearance. Associated regional sulcal effacement is also similar appearance and no new supratentorial mass or other areas of mass effect are identified. The brainstem and cerebellum are unremarkable. Cerebral ventricles: Effacement of segments of the left lateral ventricle again seen related to regional mass effect associated with the left hemispheric tumor. Paranasal sinuses: Grossly clear throughout. Mastoid air cells: Grossly clear bilaterally. Bones/joints: Focal left parietal craniotomy site is new since the comparison study and may relate to interval biopsy. Soft tissues: Unremarkable. IMPRESSION: Diffusely infiltrative neoplasm with associated perilesional edema and regional mass effect again identified in the left parieto-occipital region as above. No acute infarct or new sites of intracranial hemorrhage detected. Dictated and Authenticated by: Hank Roblero MD. Ordering:JACOB Cleaning MD
[2021-10-20] MEDS: Dexamethasone 10 MG/ML VIAL IVP (19:15)
[2021-10-20 19:21] LABS: Abs Immature Grans 0.01 10^3/uL (0.0-0.06); Absolute Basophil Count 0.03 10^3/uL (0.0-0.2); Absolute Lymphocyte Count 1.99 10^3/uL (1.2-3.4); Absolute Monocyte Count 0.71 10^3/uL (0.1-0.8); Absolute Neutrophil Count 2.52 10^3/uL (1.2-6.7); Basophils % 0.5; Eosinophils % 3.7; HCT 42.5 % (40.0-50.0); HGB 13.9 g/dL (13.5-17.5); Immature Grans % 0.2; Lymphocytes % 36.4; MCH 31.6 pg (27.0-33.0); MCHC 32.7 % (32.0-36.0); MCV 96.6 fL (80-95); MPV 11.3 fL (8.0-11.0); Neutrophils % 46.2; Platelet Count 229 10^3/uL (130-400); RDW 11.6 % (11.8-14.1); RDW-SD 41.6 fL; WBC 5.46 10^3/uL (4.4-10.8)
[2021-10-20 19:36] LABS: INR 1.1 (0.9-1.1); PTT Activated 22.7 sec (21.0-27.5); Prothrombin Time 10.6 sec (9.3-11.0)
[2021-10-20 19:42] LABS: ALT 61 U/L (16-63); AST 36 U/L (15-37); Albumin 3.9 g/dL (3.4-5.0); Alkaline Phosphatase 117 U/L (46-116); Anion Gap 7.1 mmol/L (3-11); BUN 18 mg/dL (7-18); CO2 28.9 mmol/L (21.0-32.0); Chloride 103 mmol/L (98-107); Glucose 182 mg/dL (74-106); Potassium 4.2 mmol/L (3.5-5.1); Sodium 139 mmol/L (136-145); Total Protein 7.2 g/dL (6.4-8.2); Troponin I < 50 ng/L (<or=60)
[2021-10-20] MEDS: levETIRAcetam 1,000 MG in Normal Saline 100 ML 400 MG IVPB (20:06)
== END 2021-10-20 20:46 | disposition short-term general hospital (02) ==
PROVIDERS: Emergency Provider Emergency Medicine; PCP Family Medicine
DX: R41.82 Altered mental status, unspecified (principal); C71.3 Malignant neoplasm of parietal lobe; G93.6 Cerebral edema; R26.89 Other abnormalities of gait and mobility; R56.9 Unspecified convulsions; E83.110 Hereditary hemochromatosis
CPT/HCPCS: 36415; 36416; 80053; 82962; 93005; 96365; 99285; 70450; 83735; 84484; 85025; 85610; 85730; 93010; J1100; J1953

== ENCOUNTER 2021-11-02 01:31 | Outpatient (CLI) | payer MEDICARE, BC, SELFPAY ==
[2021-11-02 08:18] LABS: Abs Immature Grans 0.02 10^3/uL (0.0-0.06); Absolute Basophil Count 0.03 10^3/uL (0.0-0.2); Absolute Eosinophil Count 0.18 10^3/uL (0.0-0.7); Absolute Lymphocyte Count 2.34 10^3/uL (1.2-3.4); Absolute Monocyte Count 0.75 10^3/uL (0.1-0.8); Basophils % 0.5; Eosinophils % 2.8; HCT 43.7 % (40.0-50.0); HGB 14.1 g/dL (13.5-17.5); Immature Grans % 0.3; MCH 30.8 pg (27.0-33.0); MCHC 32.3 % (32.0-36.0); MCV 95 fL (80-95); Monocytes % 11.9; Neutrophils % 47.5; Platelet Count 208 10^3/uL (130-400); RBC 4.58 10^6/uL (4.36-5.78); RDW 11.6 % (11.8-14.1); RDW-SD 40.2 fL; WBC 6.32 10^3/uL (4.4-10.8)
[2021-11-02 08:44] LABS: Ferritin 49 ng/mL (26-388)
== END 2021-11-02 01:32 | disposition home or self-care (01) ==
LOC: LBO 01:31
PROVIDERS: Internal Medicine; PCP Family Medicine; Visit Provider Family Medicine
DX: E83.110 Hereditary hemochromatosis (principal)
CPT/HCPCS: 36415; 82728; 85025

== ENCOUNTER 2021-11-08 03:57 | Outpatient (CLI) | payer MEDICARE, BC, SELFPAY ==
[2021-11-08 07:18] LABS: Abs Immature Grans 0.01 10^3/uL (0.0-0.06); Absolute Basophil Count 0.03 10^3/uL (0.0-0.2); Absolute Eosinophil Count 0.25 10^3/uL (0.0-0.7); Absolute Lymphocyte Count 2.15 10^3/uL (1.2-3.4); Absolute Monocyte Count 0.78 10^3/uL (0.1-0.8); Absolute Neutrophil Count 3.32 10^3/uL (1.2-6.7); Basophils % 0.5; Eosinophils % 3.8; HCT 41.2 % (40.0-50.0); HGB 13.6 g/dL (13.5-17.5); Immature Grans % 0.2; Lymphocytes % 32.9; MCH 30.8 pg (27.0-33.0); MCV 93 fL (80-95); MPV 11.1 fL (8.0-11.0); Monocytes % 11.9; Neutrophils % 50.7; Platelet Count 193 10^3/uL (130-400); RBC 4.42 10^6/uL (4.36-5.78); RDW 11.7 % (11.8-14.1); RDW-SD 39.5 fL; WBC 6.54 10^3/uL (4.4-10.8)
[2021-11-08 07:45] LABS: Ferritin 38 ng/mL (26-388)
[2021-11-08 07:57] LABS: ALT 44 U/L (16-63); AST 27 U/L (15-37); Albumin 3.8 g/dL (3.4-5.0); Alkaline Phosphatase 100 U/L (46-116); Anion Gap 9.7 mmol/L (3-11); BUN 15 mg/dL (7-18); Bilirubin, Total 0.7 mg/dL (0.2-1.0); CO2 23.3 mmol/L (21.0-32.0); CREATININE 0.9 mg/dL (0.70-1.30); Calcium 8.9 mg/dL (8.5-10.1); Chloride 104 mmol/L (98-107); Glucose 145 mg/dL (74-106); Potassium 4.5 mmol/L (3.5-5.1); Sodium 137 mmol/L (136-145); Total Protein 6.8 g/dL (6.4-8.2)
[2021-11-09 10:09] LABS: HBs Antibody, Quant <3.1 mIU/mL (See Note); Hepatitis B Surface Ab Negative (See Note)
[2021-11-09 10:24] LABS: Hepatitis B Surface Ag Negative (Negative)
[2021-11-09 11:40] LABS: Hep B Core Antibody Negative (Negative)
== END 2021-11-08 03:58 | disposition home or self-care (01) ==
PROVIDERS: PCP Family Medicine; Visit Provider Internal Medicine
DX: E83.110 Hereditary hemochromatosis (principal); C71.3 Malignant neoplasm of parietal lobe
CPT/HCPCS: 36415; 80053; 86704; 86706; 87340; 82728; 85025

== ENCOUNTER 2021-11-23 02:10 | Outpatient (CLI) | payer MEDICARE, BC, SELFPAY ==
[2021-11-23 10:30] LABS: Abs Immature Grans 0.02 10^3/uL (0.0-0.06); Absolute Basophil Count 0.03 10^3/uL (0.0-0.2); Absolute Eosinophil Count 0.16 10^3/uL (0.0-0.7); Absolute Lymphocyte Count 1.74 10^3/uL (1.2-3.4); Absolute Monocyte Count 0.67 10^3/uL (0.1-0.8); Absolute Neutrophil Count 2.63 10^3/uL (1.2-6.7); Basophils % 0.6; HCT 43.4 % (40.0-50.0); HGB 14.6 g/dL (13.5-17.5); Immature Grans % 0.4; Lymphocytes % 33.1; MCH 30.9 pg (27.0-33.0); MCHC 33.6 % (32.0-36.0); MCV 92 fL (80-95); Monocytes % 12.8; Neutrophils % 50.1; Platelet Count 227 10^3/uL (130-400); RBC 4.72 10^6/uL (4.36-5.78); RDW 11.8 % (11.8-14.1); WBC 5.25 10^3/uL (4.4-10.8)
[2021-11-23 12:28] LABS: ALT 66 U/L (16-63); AST 41 U/L (15-37); Albumin 4.4 g/dL (3.4-5.0); Alkaline Phosphatase 115 U/L (46-116); Anion Gap 13.2 mmol/L (3-11); BUN 16 mg/dL (7-18); Bilirubin, Total 1.2 mg/dL (0.2-1.0); CO2 22.8 mmol/L (21.0-32.0); CREATININE 1.2 mg/dL (0.70-1.30); Calcium 8.9 mg/dL (8.5-10.1); Chloride 103 mmol/L (98-107); Estimated GFR 59.68 (mL/min/1.73m2); Glucose 150 mg/dL (74-106); Potassium 4.9 mmol/L (3.5-5.1); Sodium 139 mmol/L (136-145)
== END 2021-11-23 02:11 | disposition home or self-care (01) ==
PROVIDERS: PCP Family Medicine
DX: C71.3 Malignant neoplasm of parietal lobe (principal)
CPT/HCPCS: 36415; 80053; 85025

== ENCOUNTER 2021-11-30 01:38 | Outpatient (CLI) | payer MEDICARE, BC, SELFPAY | END 2021-11-30 01:39 | disposition home or self-care (01) | PROVIDERS: PCP Family Medicine ==

== ENCOUNTER 2021-11-30 01:53 | Outpatient (CLI) | payer MEDICARE, BC, SELFPAY ==
[2021-11-30 08:47] LABS: Absolute Basophil Count 0.04 10^3/uL (0.0-0.2); Absolute Eosinophil Count 0.21 10^3/uL (0.0-0.7); Absolute Monocyte Count 0.67 10^3/uL (0.1-0.8); Basophils % 0.8; Eosinophils % 4.4; HCT 41.1 % (40.0-50.0); Lymphocytes % 29.7; MCH 31.3 pg (27.0-33.0); MCHC 34.1 % (32.0-36.0); MCV 92 fL (80-95); MPV 11.5 fL (8.0-11.0); Monocytes % 14.2; Neutrophils % 50.9; Platelet Count 220 10^3/uL (130-400); RBC 4.48 10^6/uL (4.36-5.78); RDW 12.2 % (11.8-14.1); RDW-SD 40.7 fL; WBC 4.72 10^3/uL (4.4-10.8)
[2021-11-30 10:05] LABS: ALT 61 U/L (16-63); AST 35 U/L (15-37); Albumin 4.1 g/dL (3.4-5.0); Alkaline Phosphatase 104 U/L (46-116); Anion Gap 9.8 mmol/L (3-11); BUN 15 mg/dL (7-18); Bilirubin, Total 0.8 mg/dL (0.2-1.0); CO2 24.2 mmol/L (21.0-32.0); CREATININE 1.1 mg/dL (0.70-1.30); Calcium 9.2 mg/dL (8.5-10.1); Chloride 107 mmol/L (98-107); Ferritin 68 ng/mL (26-388); Glucose 118 mg/dL (74-106); Potassium 4.7 mmol/L (3.5-5.1); Sodium 141 mmol/L (136-145); Total Protein 6.6 g/dL (6.4-8.2)
== END 2021-11-30 01:54 | disposition home or self-care (01) ==
PROVIDERS: PCP Family Medicine
DX: E83.110 Hereditary hemochromatosis (principal); C71.3 Malignant neoplasm of parietal lobe
CPT/HCPCS: 36415; 80053; 82728; 85025

== ENCOUNTER 2021-12-07 01:26 | Outpatient (CLI) | payer MEDICARE, BC, SELFPAY ==
[2021-12-07 10:18] LABS: Abs Immature Grans 0.01 10^3/uL (0.0-0.06); Absolute Basophil Count 0.03 10^3/uL (0.0-0.2); Absolute Monocyte Count 0.73 10^3/uL (0.1-0.8); Absolute Neutrophil Count 2.93 10^3/uL (1.2-6.7); Basophils % 0.6; HCT 43.5 % (40.0-50.0); HGB 14.7 g/dL (13.5-17.5); Immature Grans % 0.2; MCH 31.3 pg (27.0-33.0); MCHC 33.8 % (32.0-36.0); MCV 93 fL (80-95); Monocytes % 14.6; Neutrophils % 58.6; Platelet Count 206 10^3/uL (130-400); RBC 4.69 10^6/uL (4.36-5.78); RDW 12.8 % (11.8-14.1); RDW-SD 43.2 fL
[2021-12-07 10:48] LABS: Ferritin 59 ng/mL (26-388)
== END 2021-12-07 01:27 | disposition home or self-care (01) ==
PROVIDERS: PCP Family Medicine; Visit Provider Internal Medicine
DX: E83.110 Hereditary hemochromatosis (principal)
CPT/HCPCS: 36415; 82728; 85025

== ENCOUNTER 2021-12-14 01:45 | Outpatient (CLI) | payer MEDICARE, BC, SELFPAY ==
[2021-12-14 10:10] LABS: Abs Immature Grans 0.01 10^3/uL (0.0-0.06); Absolute Basophil Count 0.04 10^3/uL (0.0-0.2); Absolute Eosinophil Count 0.18 10^3/uL (0.0-0.7); Absolute Monocyte Count 0.71 10^3/uL (0.1-0.8); Absolute Neutrophil Count 2.69 10^3/uL (1.2-6.7); Basophils % 0.9; Eosinophils % 4.1; HCT 42.5 % (40.0-50.0); HGB 14.5 g/dL (13.5-17.5); Immature Grans % 0.2; Lymphocytes % 18.1; MCH 31.1 pg (27.0-33.0); MCHC 34.1 % (32.0-36.0); MCV 91 fL (80-95); MPV 10.7 fL (8.0-11.0); Neutrophils % 60.7; Platelet Count 168 10^3/uL (130-400); RBC 4.66 10^6/uL (4.36-5.78); RDW 13.1 % (11.8-14.1); RDW-SD 43.5 fL; WBC 4.43 10^3/uL (4.4-10.8)
[2021-12-14 11:03] LABS: Ferritin 98 ng/mL (26-388)
== END 2021-12-14 01:46 | disposition home or self-care (01) ==
LOC: LBO 01:45
PROVIDERS: PCP Family Medicine; Visit Provider Radiology Radiation Oncology
DX: E83.110 Hereditary hemochromatosis (principal)
CPT/HCPCS: 36415; 82728; 85025

== ENCOUNTER 2021-12-20 03:49 | Outpatient (CLI) | payer MEDICARE, BC, SELFPAY ==
[2021-12-20 10:20] LABS: Absolute Basophil Count 0.03 10^3/uL (0.0-0.2); Absolute Eosinophil Count 0.17 10^3/uL (0.0-0.7); Absolute Lymphocyte Count 0.74 10^3/uL (1.2-3.4); Absolute Monocyte Count 0.59 10^3/uL (0.1-0.8); Absolute Neutrophil Count 2.78 10^3/uL (1.2-6.7); Basophils % 0.7; Eosinophils % 3.9; HCT 41.7 % (40.0-50.0); Lymphocytes % 17.2; MCH 30.8 pg (27.0-33.0); MCHC 33.6 % (32.0-36.0); MCV 92 fL (80-95); MPV 10.8 fL (8.0-11.0); Monocytes % 13.7; Neutrophils % 64.5; Platelet Count 144 10^3/uL (130-400); RBC 4.54 10^6/uL (4.36-5.78); RDW 13.4 % (11.8-14.1); RDW-SD 45.1 fL; WBC 4.31 10^3/uL (4.4-10.8)
[2021-12-20 11:02] LABS: Ferritin 126 ng/mL (26-388)
== END 2021-12-20 03:50 | disposition home or self-care (01) ==
LOC: LBO 03:49
PROVIDERS: PCP Family Medicine; Visit Provider Radiology Radiation Oncology
DX: E83.110 Hereditary hemochromatosis (principal)
CPT/HCPCS: 36415; 82728; 85025

== ENCOUNTER 2021-12-28 01:07 | Outpatient (RCR) | payer MEDICARE, BC, SELFPAY | END 2022-01-03 23:59 | disposition home or self-care (01) | LOC: INF 01:07 | PROVIDERS: PCP Family Medicine; Visit Provider Nurse Practitioner Adult Health | DX: E83.119 Hemochromatosis, unspecified (principal) | CPT/HCPCS: 99195 ==

== ENCOUNTER 2021-12-28 01:46 | Outpatient (CLI) | payer MEDICARE, BC, SELFPAY ==
[2021-12-28 08:22] LABS: Absolute Basophil Count 0.03 10^3/uL (0.0-0.2); Absolute Eosinophil Count 0.15 10^3/uL (0.0-0.7); Absolute Lymphocyte Count 0.66 10^3/uL (1.2-3.4); Absolute Monocyte Count 0.52 10^3/uL (0.1-0.8); Absolute Neutrophil Count 2.47 10^3/uL (1.2-6.7); Basophils % 0.8; Eosinophils % 3.9; HCT 41.7 % (40.0-50.0); HGB 14.2 g/dL (13.5-17.5); Lymphocytes % 17.2; MCH 31.3 pg (27.0-33.0); MCHC 34.1 % (32.0-36.0); MCV 92 fL (80-95); MPV 9.9 fL (8.0-11.0); Monocytes % 13.6; Neutrophils % 64.5; Platelet Count 155 10^3/uL (130-400); RBC 4.54 10^6/uL (4.36-5.78); RDW 13.9 % (11.8-14.1); RDW-SD 46.7 fL; WBC 3.83 10^3/uL (4.4-10.8)
[2021-12-28 08:49] LABS: ALT 70 U/L (16-63); AST 42 U/L (15-37); Albumin 4.1 g/dL (3.4-5.0); Alkaline Phosphatase 90 U/L (46-116); Anion Gap 5.4 mmol/L (3-11); BUN 15 mg/dL (7-18); Bilirubin, Total 1.8 mg/dL (0.2-1.0); CO2 29.6 mmol/L (21.0-32.0); Chloride 104 mmol/L (98-107); Ferritin 116 ng/mL (26-388); Glucose 100 mg/dL (74-106); Potassium 4.6 mmol/L (3.5-5.1); Sodium 139 mmol/L (136-145)
== END 2021-12-28 01:47 | disposition home or self-care (01) ==
PROVIDERS: PCP Family Medicine; Visit Provider Internal Medicine
DX: E83.110 Hereditary hemochromatosis; C71.3 Malignant neoplasm of parietal lobe
CPT/HCPCS: 36415; 80053; 99195; 82728; 85025

== ENCOUNTER 2022-02-01 01:13 | Outpatient (CLI) | payer MEDICARE, BC, SELFPAY ==
[2022-02-01 08:19] LABS: Abs Immature Grans 0.02 10^3/uL (0.0-0.06); Absolute Basophil Count 0.02 10^3/uL (0.0-0.2); Absolute Eosinophil Count 0.14 10^3/uL (0.0-0.7); Absolute Lymphocyte Count 0.82 10^3/uL (1.2-3.4); Absolute Monocyte Count 0.52 10^3/uL (0.1-0.8); Absolute Neutrophil Count 2.38 10^3/uL (1.2-6.7); Basophils % 0.5; Eosinophils % 3.6; HCT 38.3 % (40.0-50.0); HGB 13.1 g/dL (13.5-17.5); Immature Grans % 0.5; MCH 33.1 pg (27.0-33.0); MCHC 34.2 % (32.0-36.0); MCV 97 fL (80-95); MPV 9.8 fL (8.0-11.0); Monocytes % 13.3; Neutrophils % 61.1; Platelet Count 159 10^3/uL (130-400); RBC 3.96 10^6/uL (4.36-5.78); RDW 13.6 % (11.8-14.1); RDW-SD 48.4 fL
[2022-02-01 09:06] LABS: ALT 54 U/L (16-63); AST 26 U/L (15-37); Albumin 3.8 g/dL (3.4-5.0); Alkaline Phosphatase 89 U/L (46-116); Anion Gap 9.5 mmol/L (3-11); BUN 17 mg/dL (7-18); Bilirubin, Total 1.2 mg/dL (0.2-1.0); CO2 25.5 mmol/L (21.0-32.0); Calcium 8.8 mg/dL (8.5-10.1); Chloride 104 mmol/L (98-107); Ferritin 75 ng/mL (26-388); Glucose 108 mg/dL (74-106); Potassium 4.3 mmol/L (3.5-5.1); Sodium 139 mmol/L (136-145); Total Protein 6.5 g/dL (6.4-8.2)
== END 2022-02-01 01:14 | disposition home or self-care (01) ==
LOC: LBO 01:14
PROVIDERS: Neurological Surgery; PCP Family Medicine; Visit Provider Nurse Practitioner Adult Health
DX: E83.110 Hereditary hemochromatosis (principal); C71.3 Malignant neoplasm of parietal lobe
CPT/HCPCS: 36415; 80053; 82728; 85025

== ENCOUNTER 2022-02-13 12:38 | Outpatient (CLI) | payer MEDICARE, BC, SELFPAY ==
[2022-02-13 16:12] LABS: Abs Immature Grans 0.01 10^3/uL (0.0-0.06); Absolute Basophil Count 0.03 10^3/uL (0.0-0.2); Absolute Eosinophil Count 0.04 10^3/uL (0.0-0.7); Absolute Lymphocyte Count 0.93 10^3/uL (1.2-3.4); Absolute Monocyte Count 0.62 10^3/uL (0.1-0.8); Absolute Neutrophil Count 4.69 10^3/uL (1.2-6.7); Basophils % 0.5; Eosinophils % 0.6; HCT 40.5 % (40.0-50.0); HGB 14.3 g/dL (13.5-17.5); Immature Grans % 0.2; Lymphocytes % 14.7; MCH 33.3 pg (27.0-33.0); MCHC 35.3 % (32.0-36.0); MCV 94 fL (80-95); Monocytes % 9.8; Neutrophils % 74.2; Platelet Count 184 10^3/uL (130-400); RBC 4.29 10^6/uL (4.36-5.78); RDW 12.9 % (11.8-14.1); RDW-SD 44.8 fL; WBC 6.32 10^3/uL (4.4-10.8)
[2022-02-13 17:50] LABS: ALT 44 U/L (16-63); AST 31 U/L (15-37); Albumin 4.3 g/dL (3.4-5.0); Alkaline Phosphatase 85 U/L (46-116); Anion Gap 11.7 mmol/L (3-11); BUN 18 mg/dL (7-18); Bilirubin, Total 1.6 mg/dL (0.2-1.0); CO2 24.3 mmol/L (21.0-32.0); Calcium 9.2 mg/dL (8.5-10.1); Chloride 102 mmol/L (98-107); Ferritin 113 ng/mL (26-388); Glucose 99 mg/dL (74-106); Potassium 4.6 mmol/L (3.5-5.1); Sodium 138 mmol/L (136-145); Total Protein 7.6 g/dL (6.4-8.2)
== END 2022-02-13 12:39 | disposition home or self-care (01) ==
LOC: LBO 12:38
PROVIDERS: PCP Family Medicine; Visit Provider Neurological Surgery
DX: E83.110 Hereditary hemochromatosis (principal)
CPT/HCPCS: 36415; 80053; 82728; 85025

== ENCOUNTER 2022-02-18 02:39 | Outpatient (CLI) | payer MEDICARE, BC, SELFPAY ==
[2022-02-18 16:16] LABS: Abs Immature Grans 0.01 10^3/uL (0.0-0.06); Absolute Basophil Count 0.02 10^3/uL (0.0-0.2); Absolute Eosinophil Count 0.12 10^3/uL (0.0-0.7); Absolute Monocyte Count 0.55 10^3/uL (0.1-0.8); Absolute Neutrophil Count 3.25 10^3/uL (1.2-6.7); Basophils % 0.4; Eosinophils % 2.3; HCT 36.3 % (40.0-50.0); HGB 12.6 g/dL (13.5-17.5); Immature Grans % 0.2; Lymphocytes % 24.8; MCH 33.1 pg (27.0-33.0); MCHC 34.7 % (32.0-36.0); MCV 95 fL (80-95); MPV 10.4 fL (8.0-11.0); Monocytes % 10.5; Neutrophils % 61.8; Platelet Count 153 10^3/uL (130-400); RBC 3.81 10^6/uL (4.36-5.78); RDW 12.5 % (11.8-14.1); WBC 5.25 10^3/uL (4.4-10.8)
[2022-02-18 17:26] LABS: ALT 36 U/L (16-63); AST 24 U/L (15-37); Albumin 3.8 g/dL (3.4-5.0); Alkaline Phosphatase 72 U/L (46-116); Anion Gap 9.8 mmol/L (3-11); BUN 21 mg/dL (7-18); Bilirubin, Total 0.8 mg/dL (0.2-1.0); CO2 25.2 mmol/L (21.0-32.0); CREATININE 0.8 mg/dL (0.70-1.30); Calcium 8.9 mg/dL (8.5-10.1); Chloride 105 mmol/L (98-107); Ferritin 81 ng/mL (26-388); Glucose 96 mg/dL (74-106); Potassium 4.4 mmol/L (3.5-5.1); Sodium 140 mmol/L (136-145); Total Protein 6.8 g/dL (6.4-8.2)
== END 2022-02-18 02:40 | disposition home or self-care (01) ==
LOC: LBO 02:39
PROVIDERS: PCP Family Medicine; Visit Provider Internal Medicine
DX: E83.110 Hereditary hemochromatosis (principal); C71.3 Malignant neoplasm of parietal lobe
CPT/HCPCS: 36415; 80053; 82728; 85025

== ENCOUNTER 2022-03-12 02:20 | Outpatient (CLI) | payer MEDICARE, BC, SELFPAY ==
[2022-03-12 08:22] LABS: Abs Immature Grans 0.01 10^3/uL (0.0-0.06); Absolute Basophil Count 0.01 10^3/uL (0.0-0.2); Absolute Eosinophil Count 0.19 10^3/uL (0.0-0.7); Absolute Lymphocyte Count 0.97 10^3/uL (1.2-3.4); Absolute Monocyte Count 0.61 10^3/uL (0.1-0.8); Basophils % 0.2; Eosinophils % 4.6; HCT 38.6 % (40.0-50.0); HGB 13.3 g/dL (13.5-17.5); Immature Grans % 0.2; Lymphocytes % 23.7; MCH 33.6 pg (27.0-33.0); MCHC 34.5 % (32.0-36.0); MCV 98 fL (80-95); MPV 9.7 fL (8.0-11.0); Monocytes % 14.9; Neutrophils % 56.4; Platelet Count 111 10^3/uL (130-400); RBC 3.96 10^6/uL (4.36-5.78); RDW 12.4 % (11.8-14.1); RDW-SD 44.5 fL; WBC 4.09 10^3/uL (4.4-10.8)
[2022-03-12 08:23] LABS: Absolute Neutrophil Count 2.31 10^3/uL (1.2-6.7)
[2022-03-12 09:02] LABS: ALT 35 U/L (16-63); AST 23 U/L (15-37); Albumin 3.6 g/dL (3.4-5.0); Alkaline Phosphatase 72 U/L (46-116); Anion Gap 7.5 mmol/L (3-11); BUN 16 mg/dL (7-18); CO2 26.5 mmol/L (21.0-32.0); Calcium 8.8 mg/dL (8.5-10.1); Chloride 106 mmol/L (98-107); Estimated GFR 79.97 (mL/min/1.73m2); Ferritin 75 ng/mL (26-388); Glucose 107 mg/dL (74-106); Sodium 140 mmol/L (136-145); Total Protein 6.6 g/dL (6.4-8.2)
== END 2022-03-12 02:21 | disposition home or self-care (01) ==
PROVIDERS: PCP Family Medicine; Visit Provider Internal Medicine
DX: E83.110 Hereditary hemochromatosis (principal); C71.3 Malignant neoplasm of parietal lobe
CPT/HCPCS: 36415; 80053; 82728; 85025

== ENCOUNTER 2022-03-18 03:39 | Outpatient (CLI) | payer MEDICARE, BC, SELFPAY ==
[2022-03-18 08:25] LABS: Abs Immature Grans 0.01 10^3/uL (0.0-0.06); Absolute Basophil Count 0.03 10^3/uL (0.0-0.2); Absolute Eosinophil Count 0.15 10^3/uL (0.0-0.7); Absolute Lymphocyte Count 0.96 10^3/uL (1.2-3.4); Absolute Monocyte Count 0.56 10^3/uL (0.1-0.8); Absolute Neutrophil Count 2.43 10^3/uL (1.2-6.7); Basophils % 0.7; Eosinophils % 3.6; HCT 39.5 % (40.0-50.0); HGB 14.1 g/dL (13.5-17.5); Immature Grans % 0.2; Lymphocytes % 23.2; MCH 33.7 pg (27.0-33.0); MCHC 35.7 % (32.0-36.0); MCV 95 fL (80-95); MPV 9.6 fL (8.0-11.0); Monocytes % 13.5; Neutrophils % 58.8; Platelet Count 111 10^3/uL (130-400); RBC 4.18 10^6/uL (4.36-5.78); RDW 12.6 % (11.8-14.1); RDW-SD 43.6 fL; WBC 4.14 10^3/uL (4.4-10.8)
[2022-03-18 09:23] LABS: ALT 41 U/L (16-63); AST 26 U/L (15-37); Albumin 3.8 g/dL (3.4-5.0); Alkaline Phosphatase 73 U/L (46-116); Anion Gap 7.9 mmol/L (3-11); BUN 20 mg/dL (7-18); Bilirubin, Total 1.3 mg/dL (0.2-1.0); CO2 26.1 mmol/L (21.0-32.0); CREATININE 0.9 mg/dL (0.70-1.30); Calcium 9.4 mg/dL (8.5-10.1); Chloride 106 mmol/L (98-107); Estimated GFR 90.74 (mL/min/1.73m2); Ferritin 72 ng/mL (26-388); Glucose 95 mg/dL (74-106); Potassium 4.6 mmol/L (3.5-5.1); Sodium 140 mmol/L (136-145)
== END 2022-03-18 03:40 | disposition home or self-care (01) ==
PROVIDERS: PCP Family Medicine; Visit Provider Internal Medicine
DX: E83.110 Hereditary hemochromatosis (principal)
CPT/HCPCS: 36415; 80053; 82728; 85025

== ENCOUNTER 2022-03-29 12:25 | Outpatient (CLI) | payer MEDICARE, BC, SELFPAY ==
[2022-03-29 08:20] LABS: Absolute Basophil Count 0.02 10^3/uL (0.0-0.2); Absolute Eosinophil Count 0.11 10^3/uL (0.0-0.7); Absolute Monocyte Count 0.53 10^3/uL (0.1-0.8); Absolute Neutrophil Count 2.88 10^3/uL (1.2-6.7); Basophils % 0.5; Eosinophils % 2.5; HCT 41.1 % (40.0-50.0); HGB 14.1 g/dL (13.5-17.5); Lymphocytes % 18.4; MCH 33.6 pg (27.0-33.0); MCHC 34.3 % (32.0-36.0); MCV 98 fL (80-95); MPV 9.7 fL (8.0-11.0); Monocytes % 12.2; Neutrophils % 66.4; Platelet Count 167 10^3/uL (130-400); RDW 12.8 % (11.8-14.1); RDW-SD 45.4 fL; WBC 4.34 10^3/uL (4.4-10.8)
[2022-03-29 08:52] LABS: ALT 49 U/L (16-63); AST 32 U/L (15-37); Albumin 3.8 g/dL (3.4-5.0); Alkaline Phosphatase 85 U/L (46-116); Anion Gap 5.2 mmol/L (3-11); BUN 13 mg/dL (7-18); Bilirubin, Total 1.3 mg/dL (0.2-1.0); CO2 29.8 mmol/L (21.0-32.0); Calcium 9.4 mg/dL (8.5-10.1); Chloride 103 mmol/L (98-107); Estimated GFR 79.97 (mL/min/1.73m2); Ferritin 90 ng/mL (26-388); Glucose 114 mg/dL (74-106); Potassium 4.3 mmol/L (3.5-5.1); Sodium 138 mmol/L (136-145)
== END 2022-03-29 12:26 | disposition home or self-care (01) ==
LOC: LBO 12:26
PROVIDERS: PCP Family Medicine; Visit Provider Internal Medicine
DX: E83.110 Hereditary hemochromatosis (principal)
CPT/HCPCS: 36415; 80053; 82728; 85025

== ENCOUNTER 2022-04-08 04:11 | Outpatient (CLI) | payer MEDICARE, BC, SELFPAY ==
[2022-04-08 08:17] LABS: Abs Immature Grans 0.02 10^3/uL (0.0-0.06); Absolute Basophil Count 0.03 10^3/uL (0.0-0.2); Absolute Eosinophil Count 0.15 10^3/uL (0.0-0.7); Absolute Lymphocyte Count 0.89 10^3/uL (1.2-3.4); Absolute Monocyte Count 0.64 10^3/uL (0.1-0.8); Absolute Neutrophil Count 2.66 10^3/uL (1.2-6.7); Basophils % 0.7; Eosinophils % 3.4; HCT 40.3 % (40.0-50.0); HGB 13.8 g/dL (13.5-17.5); Immature Grans % 0.5; Lymphocytes % 20.3; MCH 33.4 pg (27.0-33.0); MCHC 34.2 % (32.0-36.0); MCV 98 fL (80-95); Monocytes % 14.6; Neutrophils % 60.5; Platelet Count 151 10^3/uL (130-400); RBC 4.13 10^6/uL (4.36-5.78); RDW 12.9 % (11.8-14.1); RDW-SD 46.5 fL; WBC 4.39 10^3/uL (4.4-10.8)
[2022-04-08 08:43] LABS: ALT 45 U/L (16-63); AST 33 U/L (15-37); Albumin 3.9 g/dL (3.4-5.0); Alkaline Phosphatase 86 U/L (46-116); Anion Gap 8.4 mmol/L (3-11); BUN 17 mg/dL (7-18); Bilirubin, Total 1.2 mg/dL (0.2-1.0); CO2 26.6 mmol/L (21.0-32.0); CREATININE 0.9 mg/dL (0.70-1.30); Calcium 9.2 mg/dL (8.5-10.1); Chloride 105 mmol/L (98-107); Estimated GFR 90.74 (mL/min/1.73m2); Ferritin 83 ng/mL (26-388); Glucose 113 mg/dL (74-106); Potassium 4.2 mmol/L (3.5-5.1); Sodium 140 mmol/L (136-145); Total Protein 6.8 g/dL (6.4-8.2)
== END 2022-04-08 04:12 | disposition home or self-care (01) ==
PROVIDERS: PCP Family Medicine; Visit Provider Internal Medicine
DX: E83.110 Hereditary hemochromatosis (principal); C71.3 Malignant neoplasm of parietal lobe
CPT/HCPCS: 36415; 80053; 82728; 85025

== ENCOUNTER 2022-04-15 03:02 | Outpatient (CLI) | payer MEDICARE, BC, SELFPAY ==
[2022-04-15 07:52] LABS: Abs Immature Grans 0.01 10^3/uL (0.0-0.06); Absolute Basophil Count 0.03 10^3/uL (0.0-0.2); Absolute Eosinophil Count 0.12 10^3/uL (0.0-0.7); Absolute Lymphocyte Count 0.96 10^3/uL (1.2-3.4); Absolute Neutrophil Count 2.79 10^3/uL (1.2-6.7); Basophils % 0.7; Eosinophils % 2.6; HCT 42.8 % (40.0-50.0); HGB 14.7 g/dL (13.5-17.5); Immature Grans % 0.2; Lymphocytes % 20.8; MCH 33.5 pg (27.0-33.0); MCHC 34.3 % (32.0-36.0); MCV 98 fL (80-95); MPV 9.8 fL (8.0-11.0); Monocytes % 15.2; Neutrophils % 60.5; Platelet Count 160 10^3/uL (130-400); RBC 4.39 10^6/uL (4.36-5.78); RDW 12.8 % (11.8-14.1); RDW-SD 45.9 fL; WBC 4.61 10^3/uL (4.4-10.8)
[2022-04-15 08:45] LABS: ALT 44 U/L (16-63); AST 32 U/L (15-37); Albumin 4.2 g/dL (3.4-5.0); Alkaline Phosphatase 91 U/L (46-116); Anion Gap 6.8 mmol/L (3-11); BUN 17 mg/dL (7-18); Bilirubin, Total 1.6 mg/dL (0.2-1.0); CO2 30.2 mmol/L (21.0-32.0); CREATININE 1.1 mg/dL (0.70-1.30); Calcium 9.7 mg/dL (8.5-10.1); Chloride 102 mmol/L (98-107); Estimated GFR 71.32 (mL/min/1.73m2); Ferritin 109 ng/mL (26-388); Glucose 115 mg/dL (74-106); Potassium 4.5 mmol/L (3.5-5.1); Sodium 139 mmol/L (136-145); Total Protein 7.5 g/dL (6.4-8.2)
== END 2022-04-15 03:03 | disposition home or self-care (01) ==
PROVIDERS: PCP Family Medicine; Visit Provider Internal Medicine
DX: C71.3 Malignant neoplasm of parietal lobe (principal); E83.110 Hereditary hemochromatosis
CPT/HCPCS: 36415; 80053; 82728; 85025

== ENCOUNTER 2022-05-06 03:03 | Outpatient (CLI) | payer MEDICARE, BC, SELFPAY ==
[2022-05-06 08:14] LABS: Abs Immature Grans 0.01 10^3/uL (0.0-0.06); Absolute Basophil Count 0.02 10^3/uL (0.0-0.2); Absolute Eosinophil Count 0.16 10^3/uL (0.0-0.7); Absolute Lymphocyte Count 0.98 10^3/uL (1.2-3.4); Absolute Monocyte Count 0.65 10^3/uL (0.1-0.8); Absolute Neutrophil Count 3.23 10^3/uL (1.2-6.7); Basophils % 0.4; Eosinophils % 3.2; HCT 41.1 % (40.0-50.0); HGB 14.3 g/dL (13.5-17.5); Immature Grans % 0.2; Lymphocytes % 19.4; MCH 33.7 pg (27.0-33.0); MCHC 34.8 % (32.0-36.0); MCV 97 fL (80-95); MPV 10.1 fL (8.0-11.0); Monocytes % 12.9; Neutrophils % 63.9; Platelet Count 156 10^3/uL (130-400); RBC 4.24 10^6/uL (4.36-5.78); RDW 13.1 % (11.8-14.1); RDW-SD 46.2 fL; WBC 5.05 10^3/uL (4.4-10.8)
[2022-05-06 09:15] LABS: ALT 39 U/L (16-63); AST 28 U/L (15-37); Albumin 3.9 g/dL (3.4-5.0); Alkaline Phosphatase 87 U/L (46-116); Anion Gap 5.4 mmol/L (3-11); BUN 18 mg/dL (7-18); Bilirubin, Total 1.6 mg/dL (0.2-1.0); CO2 27.6 mmol/L (21.0-32.0); CREATININE 0.9 mg/dL (0.70-1.30); Calcium 9.2 mg/dL (8.5-10.1); Chloride 106 mmol/L (98-107); Estimated GFR 90.74 (mL/min/1.73m2); Glucose 103 mg/dL (74-106); Potassium 4.2 mmol/L (3.5-5.1); Sodium 139 mmol/L (136-145)
[2022-05-06 10:40] LABS: Ferritin 97 ng/mL (26-388)
== END 2022-05-06 03:04 | disposition home or self-care (01) ==
PROVIDERS: Internal Medicine; PCP Family Medicine; Visit Provider Neurological Surgery
DX: C71.3 Malignant neoplasm of parietal lobe (principal); E83.110 Hereditary hemochromatosis
CPT/HCPCS: 36415; 80053; 82728; 85025

== ENCOUNTER 2022-05-13 02:31 | Outpatient (CLI) | payer MEDICARE, BC, SELFPAY ==
[2022-05-13 08:24] LABS: Abs Immature Grans 0.01 10^3/uL (0.0-0.06); Absolute Basophil Count 0.03 10^3/uL (0.0-0.2); Absolute Eosinophil Count 0.11 10^3/uL (0.0-0.7); Absolute Monocyte Count 0.48 10^3/uL (0.1-0.8); Absolute Neutrophil Count 2.84 10^3/uL (1.2-6.7); Basophils % 0.7; Eosinophils % 2.6; HCT 39.8 % (40.0-50.0); Immature Grans % 0.2; Lymphocytes % 18.7; MCH 34.2 pg (27.0-33.0); MCHC 35.2 % (32.0-36.0); MCV 97 fL (80-95); MPV 10.4 fL (8.0-11.0); Monocytes % 11.2; Neutrophils % 66.6; Platelet Count 146 10^3/uL (130-400); RBC 4.09 10^6/uL (4.36-5.78); RDW 12.9 % (11.8-14.1); RDW-SD 46.3 fL; WBC 4.27 10^3/uL (4.4-10.8)
[2022-05-13 08:56] LABS: ALT 30 U/L (16-63); AST 26 U/L (15-37); Alkaline Phosphatase 88 U/L (46-116); Anion Gap 8.4 mmol/L (3-11); BUN 15 mg/dL (7-18); Bilirubin, Total 1.6 mg/dL (0.2-1.0); CO2 26.6 mmol/L (21.0-32.0); CREATININE 0.9 mg/dL (0.70-1.30); Calcium 9.2 mg/dL (8.5-10.1); Chloride 104 mmol/L (98-107); Estimated GFR 90.74 (mL/min/1.73m2); Ferritin 100 ng/mL (26-388); Glucose 110 mg/dL (74-106); Potassium 4.3 mmol/L (3.5-5.1); Sodium 139 mmol/L (136-145); Total Protein 7.1 g/dL (6.4-8.2)
== END 2022-05-13 02:32 | disposition home or self-care (01) ==
PROVIDERS: PCP Family Medicine; Visit Provider Internal Medicine
DX: E83.110 Hereditary hemochromatosis (principal)
CPT/HCPCS: 36415; 80053; 82728; 85025

== ENCOUNTER 2022-06-03 03:12 | Outpatient (CLI) | payer MEDICARE, BC, SELFPAY ==
[2022-06-03 08:15] LABS: Abs Immature Grans 0.01 10^3/uL (0.0-0.06); Absolute Basophil Count 0.02 10^3/uL (0.0-0.2); Absolute Eosinophil Count 0.17 10^3/uL (0.0-0.7); Absolute Lymphocyte Count 0.97 10^3/uL (1.2-3.4); Absolute Monocyte Count 0.59 10^3/uL (0.1-0.8); Absolute Neutrophil Count 3.24 10^3/uL (1.2-6.7); Basophils % 0.4; Eosinophils % 3.4; HCT 39.6 % (40.0-50.0); HGB 13.5 g/dL (13.5-17.5); Immature Grans % 0.2; Lymphocytes % 19.4; MCH 33.8 pg (27.0-33.0); MCHC 34.1 % (32.0-36.0); MCV 99 fL (80-95); MPV 9.7 fL (8.0-11.0); Monocytes % 11.8; Neutrophils % 64.8; Platelet Count 161 10^3/uL (130-400); RDW 12.7 % (11.8-14.1); RDW-SD 46.5 fL
[2022-06-03 08:41] LABS: ALT 38 U/L (16-63); AST 29 U/L (15-37); Albumin 3.8 g/dL (3.4-5.0); Alkaline Phosphatase 89 U/L (46-116); BUN 19 mg/dL (7-18); Bilirubin, Total 1.2 mg/dL (0.2-1.0); Calcium 9.2 mg/dL (8.5-10.1); Chloride 104 mmol/L (98-107); Estimated GFR 79.97 (mL/min/1.73m2); Ferritin 104 ng/mL (26-388); Glucose 123 mg/dL (74-106); Potassium 4.3 mmol/L (3.5-5.1); Sodium 139 mmol/L (136-145); Total Protein 6.7 g/dL (6.4-8.2)
== END 2022-06-03 03:13 | disposition home or self-care (01) ==
LOC: LBO 03:13
PROVIDERS: Internal Medicine; PCP Family Medicine; Visit Provider Family Medicine
DX: E83.110 Hereditary hemochromatosis (principal)
CPT/HCPCS: 36415; 80053; 82728; 85025

== ENCOUNTER 2022-06-10 04:09 | Outpatient (CLI) | payer MEDICARE, BC, SELFPAY ==
[2022-06-10 10:09] LABS: Abs Immature Grans 0.02 10^3/uL (0.0-0.06); Absolute Basophil Count 0.03 10^3/uL (0.0-0.2); Absolute Eosinophil Count 0.11 10^3/uL (0.0-0.7); Absolute Lymphocyte Count 0.78 10^3/uL (1.2-3.4); Absolute Neutrophil Count 3.33 10^3/uL (1.2-6.7); Basophils % 0.6; Eosinophils % 2.3; HCT 41.8 % (40.0-50.0); HGB 14.1 g/dL (13.5-17.5); Immature Grans % 0.4; Lymphocytes % 16.4; MCH 33.4 pg (27.0-33.0); MCHC 33.7 % (32.0-36.0); MCV 99 fL (80-95); MPV 10.1 fL (8.0-11.0); Monocytes % 10.5; Neutrophils % 69.8; Platelet Count 148 10^3/uL (130-400); RBC 4.22 10^6/uL (4.36-5.78); RDW 12.7 % (11.8-14.1); WBC 4.77 10^3/uL (4.4-10.8)
[2022-06-10 11:15] LABS: ALT 45 U/L (16-63); AST 33 U/L (15-37); Albumin 3.9 g/dL (3.4-5.0); Alkaline Phosphatase 94 U/L (46-116); Anion Gap 7.8 mmol/L (3-11); BUN 15 mg/dL (7-18); Bilirubin, Total 1.6 mg/dL (0.2-1.0); CO2 30.2 mmol/L (21.0-32.0); CREATININE 0.9 mg/dL (0.70-1.30); Calcium 9.2 mg/dL (8.5-10.1); Chloride 102 mmol/L (98-107); Estimated GFR 90.74 (mL/min/1.73m2); Ferritin 99 ng/mL (26-388); Glucose 179 mg/dL (74-106); Sodium 140 mmol/L (136-145); Total Protein 7.2 g/dL (6.4-8.2)
== END 2022-06-10 04:10 | disposition home or self-care (01) ==
PROVIDERS: PCP Family Medicine; Visit Provider Internal Medicine
DX: E83.110 Hereditary hemochromatosis (principal); C71.3 Malignant neoplasm of parietal lobe
CPT/HCPCS: 36415; 80053; 82728; 85025

== ENCOUNTER 2022-07-02 03:48 | Outpatient (CLI) | payer MEDICARE, BC, SELFPAY ==
[2022-07-02 08:05] LABS: Abs Immature Grans 0.01 10^3/uL (0.0-0.06); Absolute Basophil Count 0.02 10^3/uL (0.0-0.2); Absolute Eosinophil Count 0.16 10^3/uL (0.0-0.7); Absolute Lymphocyte Count 0.88 10^3/uL (1.2-3.4); Absolute Monocyte Count 0.45 10^3/uL (0.1-0.8); Absolute Neutrophil Count 3.28 10^3/uL (1.2-6.7); Basophils % 0.4; Eosinophils % 3.3; HCT 40.2 % (40.0-50.0); HGB 13.9 g/dL (13.5-17.5); Immature Grans % 0.2; Lymphocytes % 18.3; MCH 33.8 pg (27.0-33.0); MCHC 34.6 % (32.0-36.0); MCV 98 fL (80-95); MPV 9.8 fL (8.0-11.0); Monocytes % 9.4; Neutrophils % 68.4; Platelet Count 160 10^3/uL (130-400); RBC 4.11 10^6/uL (4.36-5.78); RDW 12.3 % (11.8-14.1); RDW-SD 44.1 fL
[2022-07-02 08:37] LABS: ALT 35 U/L (16-63); AST 28 U/L (15-37); Albumin 3.8 g/dL (3.4-5.0); Alkaline Phosphatase 94 U/L (46-116); BUN 15 mg/dL (7-18); Calcium 9.1 mg/dL (8.5-10.1); Chloride 107 mmol/L (98-107); Estimated GFR 79.97 (mL/min/1.73m2); Ferritin 97 ng/mL (26-388); Glucose 120 mg/dL (74-106); Potassium 4.3 mmol/L (3.5-5.1); Sodium 141 mmol/L (136-145); Total Protein 6.5 g/dL (6.4-8.2)
== END 2022-07-02 03:49 | disposition home or self-care (01) ==
PROVIDERS: PCP Family Medicine; Visit Provider Internal Medicine
DX: C71.3 Malignant neoplasm of parietal lobe (principal); E83.110 Hereditary hemochromatosis
CPT/HCPCS: 36415; 80053; 82728; 85025

== ENCOUNTER 2022-07-09 04:06 | Outpatient (CLI) | payer MEDICARE, BC, SELFPAY ==
[2022-07-09 14:35] LABS: Abs Immature Grans 0.02 10^3/uL (0.0-0.06); Absolute Basophil Count 0.04 10^3/uL (0.0-0.2); Absolute Lymphocyte Count 0.98 10^3/uL (1.2-3.4); Absolute Monocyte Count 0.65 10^3/uL (0.1-0.8); Absolute Neutrophil Count 4.62 10^3/uL (1.2-6.7); Basophils % 0.6; Eosinophils % 1.6; HCT 44.8 % (40.0-50.0); HGB 15.1 g/dL (13.5-17.5); Immature Grans % 0.3; Lymphocytes % 15.3; MCH 33.3 pg (27.0-33.0); MCHC 33.7 % (32.0-36.0); MCV 99 fL (80-95); MPV 10.5 fL (8.0-11.0); Monocytes % 10.1; Neutrophils % 72.1; Platelet Count 157 10^3/uL (130-400); RBC 4.54 10^6/uL (4.36-5.78); RDW 12.1 % (11.8-14.1); RDW-SD 44.3 fL; WBC 6.41 10^3/uL (4.4-10.8)
[2022-07-09 15:28] LABS: ALT 33 U/L (16-63); AST 31 U/L (15-37); Albumin 4.5 g/dL (3.4-5.0); Alkaline Phosphatase 108 U/L (46-116); Anion Gap 8.4 mmol/L (3-11); BUN 17 mg/dL (7-18); Bilirubin, Total 1.9 mg/dL (0.2-1.0); CO2 27.6 mmol/L (21.0-32.0); Calcium 9.5 mg/dL (8.5-10.1); Chloride 102 mmol/L (98-107); Estimated GFR 79.97 (mL/min/1.73m2); Ferritin 124 ng/mL (26-388); Glucose 100 mg/dL (74-106); Magnesium 2.1 mg/dL (1.8-2.4); Sodium 138 mmol/L (136-145); Total Protein 7.7 g/dL (6.4-8.2)
== END 2022-07-09 04:07 | disposition home or self-care (01) ==
PROVIDERS: PCP Family Medicine; Visit Provider Neurological Surgery
DX: E83.110 Hereditary hemochromatosis (principal); C71.3 Malignant neoplasm of parietal lobe
CPT/HCPCS: 36415; 80053; 82728; 83735; 85025

== ENCOUNTER 2022-07-31 02:04 | Outpatient (CLI) | payer MEDICARE, BC, SELFPAY ==
[2022-07-31 15:31] LABS: Abs Immature Grans 0.01 10^3/uL (0.0-0.06); Absolute Basophil Count 0.02 10^3/uL (0.0-0.2); Absolute Lymphocyte Count 0.92 10^3/uL (1.2-3.4); Absolute Monocyte Count 0.53 10^3/uL (0.1-0.8); Basophils % 0.4; Eosinophils % 1.8; HCT 41.4 % (40.0-50.0); HGB 14.4 g/dL (13.5-17.5); Immature Grans % 0.2; Lymphocytes % 16.8; MCH 33.5 pg (27.0-33.0); MCHC 34.8 % (32.0-36.0); MCV 96 fL (80-95); MPV 9.8 fL (8.0-11.0); Monocytes % 9.7; Neutrophils % 71.1; Platelet Count 151 10^3/uL (130-400); RDW 12.2 % (11.8-14.1); RDW-SD 43.6 fL; WBC 5.48 10^3/uL (4.4-10.8)
[2022-07-31 16:19] LABS: ALT 37 U/L (16-63); AST 35 U/L (15-37); Albumin 4.2 g/dL (3.4-5.0); Alkaline Phosphatase 104 U/L (46-116); Anion Gap 6.8 mmol/L (3-11); BUN 16 mg/dL (7-18); Bilirubin, Total 1.6 mg/dL (0.2-1.0); CO2 28.2 mmol/L (21.0-32.0); CREATININE 0.9 mg/dL (0.70-1.30); Calcium 9.3 mg/dL (8.5-10.1); Chloride 104 mmol/L (98-107); Estimated GFR 90.74 (mL/min/1.73m2); Glucose 99 mg/dL (74-106); Potassium 4.7 mmol/L (3.5-5.1); Sodium 139 mmol/L (136-145); Total Protein 6.9 g/dL (6.4-8.2)
[2022-07-31 16:51] LABS: Ferritin 144 ng/mL (26-388)
== END 2022-07-31 02:05 | disposition home or self-care (01) ==
PROVIDERS: PCP Family Medicine; Visit Provider Internal Medicine
DX: E83.110 Hereditary hemochromatosis (principal); C71.3 Malignant neoplasm of parietal lobe
CPT/HCPCS: 36415; 80053; 82728; 85025

== ENCOUNTER 2022-08-07 03:36 | Outpatient (RCR) | payer MEDICARE, BC, SELFPAY | END 2022-09-03 23:59 | disposition home or self-care (01) | LOC: INF 03:36 | PROVIDERS: PCP Family Medicine; Visit Provider Internal Medicine | DX: E83.119 Hemochromatosis, unspecified (principal) | CPT/HCPCS: 99195 ==

== ENCOUNTER 2022-09-04 02:55 | Outpatient (CLI) | payer MEDICARE, BC, SELFPAY ==
[2022-09-04 14:11] LABS: Abs Immature Grans 0.02 10^3/uL (0.0-0.06); Absolute Basophil Count 0.02 10^3/uL (0.0-0.2); Absolute Eosinophil Count 0.09 10^3/uL (0.0-0.7); Absolute Lymphocyte Count 0.86 10^3/uL (1.2-3.4); Absolute Monocyte Count 0.72 10^3/uL (0.1-0.8); Absolute Neutrophil Count 4.69 10^3/uL (1.2-6.7); Basophils % 0.3; Eosinophils % 1.4; HCT 41.4 % (40.0-50.0); HGB 14.5 g/dL (13.5-17.5); Immature Grans % 0.3; Lymphocytes % 13.4; MCH 33.2 pg (27.0-33.0); MCV 95 fL (80-95); MPV 9.6 fL (8.0-11.0); Monocytes % 11.3; Neutrophils % 73.3; Platelet Count 151 10^3/uL (130-400); RBC 4.37 10^6/uL (4.36-5.78); RDW-SD 45.1 fL
[2022-09-04 14:28] LABS: ALT 36 U/L (16-63); AST 33 U/L (15-37); Albumin 4.2 g/dL (3.4-5.0); Alkaline Phosphatase 114 U/L (46-116); Anion Gap 10.1 mmol/L (3-11); BUN 18 mg/dL (7-18); Bilirubin, Total 1.7 mg/dL (0.2-1.0); CO2 25.9 mmol/L (21.0-32.0); CREATININE 0.9 mg/dL (0.70-1.30); Calcium 9.7 mg/dL (8.5-10.1); Chloride 104 mmol/L (98-107); Estimated GFR 90.74 (mL/min/1.73m2); Glucose 97 mg/dL (74-106); Potassium 4.1 mmol/L (3.5-5.1); Sodium 140 mmol/L (136-145); Total Protein 7.3 g/dL (6.4-8.2)
[2022-09-04 14:40] LABS: Ferritin 103 ng/mL (26-388)
== END 2022-09-04 02:56 | disposition home or self-care (01) ==
PROVIDERS: Neurological Surgery; PCP Family Medicine; Visit Provider Internal Medicine
DX: E83.110 Hereditary hemochromatosis (principal); C71.3 Malignant neoplasm of parietal lobe
CPT/HCPCS: 36415; 80053; 82728; 85025

== ENCOUNTER 2022-09-25 03:11 | Outpatient (CLI) | payer MEDICARE, BC, SELFPAY ==
[2022-09-25 08:13] LABS: Abs Immature Grans 0.02 10^3/uL (0.0-0.06); Absolute Basophil Count 0.02 10^3/uL (0.0-0.2); Absolute Eosinophil Count 0.14 10^3/uL (0.0-0.7); Absolute Lymphocyte Count 0.77 10^3/uL (1.2-3.4); Absolute Monocyte Count 0.57 10^3/uL (0.1-0.8); Absolute Neutrophil Count 3.93 10^3/uL (1.2-6.7); Basophils % 0.4; Eosinophils % 2.6; HCT 41.8 % (40.0-50.0); HGB 14.6 g/dL (13.5-17.5); Immature Grans % 0.4; Lymphocytes % 14.1; MCH 33.6 pg (27.0-33.0); MCHC 34.9 % (32.0-36.0); MCV 96 fL (80-95); MPV 9.4 fL (8.0-11.0); Monocytes % 10.5; Platelet Count 154 10^3/uL (130-400); RBC 4.34 10^6/uL (4.36-5.78); RDW 12.8 % (11.8-14.1); RDW-SD 45.1 fL; WBC 5.45 10^3/uL (4.4-10.8)
[2022-09-25 08:40] LABS: ALT 34 U/L (16-63); AST 35 U/L (15-37); Albumin 3.9 g/dL (3.4-5.0); Alkaline Phosphatase 110 U/L (46-116); Anion Gap 3.7 mmol/L (3-11); BUN 17 mg/dL (7-18); Bilirubin, Total 1.2 mg/dL (0.2-1.0); CO2 30.3 mmol/L (21.0-32.0); Calcium 9.5 mg/dL (8.5-10.1); Chloride 103 mmol/L (98-107); Estimated GFR 79.97 (mL/min/1.73m2); Ferritin 120 ng/mL (26-388); Glucose 116 mg/dL (74-106); Potassium 4.6 mmol/L (3.5-5.1); Sodium 137 mmol/L (136-145)
== END 2022-09-25 03:12 | disposition home or self-care (01) ==
PROVIDERS: Visit Provider Internal Medicine
DX: E83.110 Hereditary hemochromatosis (principal); C71.3 Malignant neoplasm of parietal lobe
CPT/HCPCS: 36415; 80053; 82728; 85025

== ENCOUNTER 2022-10-03 02:18 | Outpatient (CLI) | payer MEDICARE, BC, SELFPAY ==
[2022-10-03 08:15] LABS: Abs Immature Grans 0.02 10^3/uL (0.0-0.06); Absolute Basophil Count 0.03 10^3/uL (0.0-0.2); Absolute Eosinophil Count 0.11 10^3/uL (0.0-0.7); Absolute Lymphocyte Count 0.87 10^3/uL (1.2-3.4); Absolute Monocyte Count 0.64 10^3/uL (0.1-0.8); Absolute Neutrophil Count 3.96 10^3/uL (1.2-6.7); Basophils % 0.5; HCT 42.1 % (40.0-50.0); HGB 14.8 g/dL (13.5-17.5); Immature Grans % 0.4; Lymphocytes % 15.5; MCH 33.8 pg (27.0-33.0); MCHC 35.2 % (32.0-36.0); MCV 96 fL (80-95); MPV 9.8 fL (8.0-11.0); Monocytes % 11.4; Neutrophils % 70.2; Platelet Count 147 10^3/uL (130-400); RBC 4.38 10^6/uL (4.36-5.78); RDW 12.7 % (11.8-14.1); RDW-SD 44.4 fL; WBC 5.63 10^3/uL (4.4-10.8)
[2022-10-03 08:37] LABS: ALT 35 U/L (16-63); AST 36 U/L (15-37); Albumin 3.8 g/dL (3.4-5.0); Alkaline Phosphatase 113 U/L (46-116); Anion Gap 8.5 mmol/L (3-11); BUN 18 mg/dL (7-18); Bilirubin, Total 1.3 mg/dL (0.2-1.0); CO2 26.5 mmol/L (21.0-32.0); Calcium 9.4 mg/dL (8.5-10.1); Chloride 104 mmol/L (98-107); Estimated GFR 79.97 (mL/min/1.73m2); Glucose 107 mg/dL (74-106); Potassium 4.3 mmol/L (3.5-5.1); Sodium 139 mmol/L (136-145)
== END 2022-10-03 02:19 | disposition home or self-care (01) ==
PROVIDERS: Visit Provider Neurological Surgery
DX: C71.3 Malignant neoplasm of parietal lobe (principal)
CPT/HCPCS: 36415; 80053; 85025

== ENCOUNTER 2022-10-24 03:41 | Outpatient (CLI) | payer MEDICARE, BC, SELFPAY ==
[2022-10-24 17:14] LABS: Abs Immature Grans 0.03 10^3/uL (0.0-0.06); Absolute Basophil Count 0.03 10^3/uL (0.0-0.2); Absolute Eosinophil Count 0.14 10^3/uL (0.0-0.7); Absolute Lymphocyte Count 1.12 10^3/uL (1.2-3.4); Absolute Monocyte Count 0.79 10^3/uL (0.1-0.8); Absolute Neutrophil Count 4.93 10^3/uL (1.2-6.7); Basophils % 0.4; HGB 14.9 g/dL (13.5-17.5); Immature Grans % 0.4; Lymphocytes % 15.9; MCH 33.6 pg (27.0-33.0); MCHC 35.5 % (32.0-36.0); MCV 95 fL (80-95); MPV 9.8 fL (8.0-11.0); Monocytes % 11.2; Neutrophils % 70.1; Platelet Count 176 10^3/uL (130-400); RBC 4.44 10^6/uL (4.36-5.78); RDW 12.2 % (11.8-14.1); RDW-SD 42.7 fL; WBC 7.04 10^3/uL (4.4-10.8)
[2022-10-24 17:42] LABS: ALT 32 U/L (16-63); AST 40 U/L (15-37); Albumin 3.9 g/dL (3.4-5.0); Alkaline Phosphatase 128 U/L (46-116); Anion Gap 8.7 mmol/L (3-11); BUN 19 mg/dL (7-18); Bilirubin, Total 1.4 mg/dL (0.2-1.0); CO2 26.3 mmol/L (21.0-32.0); Calcium 9.2 mg/dL (8.5-10.1); Chloride 104 mmol/L (98-107); Estimated GFR 79.97 (mL/min/1.73m2); Glucose 93 mg/dL (74-106); Potassium 4.3 mmol/L (3.5-5.1); Sodium 139 mmol/L (136-145)
== END 2022-10-24 03:42 | disposition home or self-care (01) ==
PROVIDERS: Visit Provider Neurological Surgery
DX: C71.9 Malignant neoplasm of brain, unspecified (principal)
CPT/HCPCS: 36415; 80053; 85025

== ENCOUNTER 2022-10-31 02:08 | Outpatient (CLI) | payer MEDICARE, BC, SELFPAY ==
[2022-10-31 08:27] LABS: Abs Immature Grans 0.01 10^3/uL (0.0-0.06); Absolute Basophil Count 0.04 10^3/uL (0.0-0.2); Absolute Lymphocyte Count 0.78 10^3/uL (1.2-3.4); Absolute Monocyte Count 0.58 10^3/uL (0.1-0.8); Absolute Neutrophil Count 4.18 10^3/uL (1.2-6.7); Basophils % 0.7; Eosinophils % 1.8; HCT 41.4 % (40.0-50.0); HGB 14.7 g/dL (13.5-17.5); Immature Grans % 0.2; Lymphocytes % 13.7; MCH 33.5 pg (27.0-33.0); MCHC 35.5 % (32.0-36.0); MCV 94 fL (80-95); MPV 9.6 fL (8.0-11.0); Monocytes % 10.2; Neutrophils % 73.4; Platelet Count 146 10^3/uL (130-400); RBC 4.39 10^6/uL (4.36-5.78); RDW 12.5 % (11.8-14.1); RDW-SD 43.3 fL; WBC 5.69 10^3/uL (4.4-10.8)
[2022-10-31 09:08] LABS: ALT 30 U/L (16-63); AST 42 U/L (15-37); Albumin 3.7 g/dL (3.4-5.0); Alkaline Phosphatase 117 U/L (46-116); Anion Gap 7.9 mmol/L (3-11); BUN 14 mg/dL (7-18); Bilirubin, Total 1.5 mg/dL (0.2-1.0); CO2 28.1 mmol/L (21.0-32.0); Calcium 9.5 mg/dL (8.5-10.1); Chloride 104 mmol/L (98-107); Estimated GFR 79.97 (mL/min/1.73m2); Glucose 102 mg/dL (74-106); Potassium 4.3 mmol/L (3.5-5.1); Sodium 140 mmol/L (136-145); Total Protein 7.1 g/dL (6.4-8.2)
== END 2022-10-31 02:09 | disposition home or self-care (01) ==
PROVIDERS: Visit Provider Neurological Surgery
DX: C71.9 Malignant neoplasm of brain, unspecified (principal)
CPT/HCPCS: 36415; 80053; 85025

== ENCOUNTER 2022-11-20 03:23 | Outpatient (CLI) | payer MEDICARE, BC, SELFPAY ==
[2022-11-20 08:16] LABS: Abs Immature Grans 0.02 10^3/uL (0.0-0.06); Absolute Basophil Count 0.02 10^3/uL (0.0-0.2); Absolute Eosinophil Count 0.13 10^3/uL (0.0-0.7); Absolute Lymphocyte Count 0.78 10^3/uL (1.2-3.4); Absolute Monocyte Count 0.68 10^3/uL (0.1-0.8); Absolute Neutrophil Count 4.26 10^3/uL (1.2-6.7); Basophils % 0.3; Eosinophils % 2.2; HCT 41.5 % (40.0-50.0); HGB 14.6 g/dL (13.5-17.5); Immature Grans % 0.3; Lymphocytes % 13.2; MCH 33.6 pg (27.0-33.0); MCHC 35.2 % (32.0-36.0); MCV 96 fL (80-95); MPV 9.5 fL (8.0-11.0); Monocytes % 11.5; Neutrophils % 72.5; Platelet Count 150 10^3/uL (130-400); RBC 4.34 10^6/uL (4.36-5.78); RDW 13.2 % (11.8-14.1); RDW-SD 46.1 fL; WBC 5.89 10^3/uL (4.4-10.8)
[2022-11-20 08:47] LABS: ALT 35 U/L (16-63); AST 51 U/L (15-37); Albumin 3.7 g/dL (3.4-5.0); Alkaline Phosphatase 127 U/L (46-116); Anion Gap 7.5 mmol/L (3-11); BUN 15 mg/dL (7-18); Bilirubin, Total 1.5 mg/dL (0.2-1.0); CO2 26.5 mmol/L (21.0-32.0); Calcium 9.3 mg/dL (8.5-10.1); Chloride 103 mmol/L (98-107); Estimated GFR 79.97 (mL/min/1.73m2); Glucose 100 mg/dL (74-106); Potassium 4.2 mmol/L (3.5-5.1); Sodium 137 mmol/L (136-145); Total Protein 7.1 g/dL (6.4-8.2)
== END 2022-11-20 03:24 | disposition home or self-care (01) ==
PROVIDERS: Visit Provider Neurological Surgery
DX: C71.9 Malignant neoplasm of brain, unspecified (principal)
CPT/HCPCS: 36415; 80053; 85025

== ENCOUNTER 2022-11-28 03:09 | Outpatient (CLI) | payer MEDICARE, BC, SELFPAY ==
[2022-11-28 07:59] LABS: Abs Immature Grans 0.02 10^3/uL (0.0-0.06); Absolute Basophil Count 0.04 10^3/uL (0.0-0.2); Absolute Eosinophil Count 0.09 10^3/uL (0.0-0.7); Absolute Monocyte Count 0.67 10^3/uL (0.1-0.8); Absolute Neutrophil Count 4.46 10^3/uL (1.2-6.7); Basophils % 0.7; Eosinophils % 1.5; HCT 41.8 % (40.0-50.0); HGB 14.6 g/dL (13.5-17.5); Immature Grans % 0.3; Lymphocytes % 13.2; MCH 33.6 pg (27.0-33.0); MCHC 34.9 % (32.0-36.0); MCV 96 fL (80-95); MPV 9.3 fL (8.0-11.0); Neutrophils % 73.3; Platelet Count 137 10^3/uL (130-400); RBC 4.34 10^6/uL (4.36-5.78); RDW 13.5 % (11.8-14.1); WBC 6.08 10^3/uL (4.4-10.8)
[2022-11-28 08:26] LABS: ALT 35 U/L (16-63); AST 50 U/L (15-37); Albumin 3.7 g/dL (3.4-5.0); Alkaline Phosphatase 135 U/L (46-116); Anion Gap 7.1 mmol/L (3-11); BUN 13 mg/dL (7-18); Bilirubin, Total 1.3 mg/dL (0.2-1.0); CO2 27.9 mmol/L (21.0-32.0); Calcium 9.4 mg/dL (8.5-10.1); Chloride 104 mmol/L (98-107); Estimated GFR 79.97 (mL/min/1.73m2); Glucose 105 mg/dL (74-106); Potassium 4.4 mmol/L (3.5-5.1); Sodium 139 mmol/L (136-145); Total Protein 7.1 g/dL (6.4-8.2)
== END 2022-11-28 03:10 | disposition home or self-care (01) ==
PROVIDERS: Visit Provider Neurological Surgery
DX: C71.9 Malignant neoplasm of brain, unspecified (principal)
CPT/HCPCS: 36415; 80053; 85025

== ENCOUNTER 2022-12-18 03:26 | Outpatient (CLI) | payer MEDICARE, BC, SELFPAY ==
[2022-12-18 07:54] LABS: Abs Immature Grans 0.02 10^3/uL (0.0-0.06); Absolute Basophil Count 0.04 10^3/uL (0.0-0.2); Absolute Eosinophil Count 0.11 10^3/uL (0.0-0.7); Absolute Lymphocyte Count 0.89 10^3/uL (1.2-3.4); Absolute Monocyte Count 0.75 10^3/uL (0.1-0.8); Absolute Neutrophil Count 4.56 10^3/uL (1.2-6.7); Basophils % 0.6; Eosinophils % 1.7; HCT 42.9 % (40.0-50.0); HGB 15.1 g/dL (13.5-17.5); Immature Grans % 0.3; MCH 33.6 pg (27.0-33.0); MCHC 35.2 % (32.0-36.0); MCV 95 fL (80-95); MPV 9.4 fL (8.0-11.0); Monocytes % 11.8; Neutrophils % 71.6; Platelet Count 137 10^3/uL (130-400); RDW 13.2 % (11.8-14.1); RDW-SD 46.5 fL; WBC 6.37 10^3/uL (4.4-10.8)
[2022-12-18 09:09] LABS: ALT 33 U/L (16-63); AST 59 U/L (15-37); Albumin 3.5 g/dL (3.4-5.0); Alkaline Phosphatase 151 U/L (46-116); Anion Gap 7.1 mmol/L (3-11); BUN 16 mg/dL (7-18); Bilirubin, Total 1.4 mg/dL (0.2-1.0); CO2 27.9 mmol/L (21.0-32.0); Calcium 9.5 mg/dL (8.5-10.1); Chloride 102 mmol/L (98-107); Estimated GFR 79.47 (mL/min/1.73m2); Glucose 108 mg/dL (74-106); Potassium 4.3 mmol/L (3.5-5.1); Sodium 137 mmol/L (136-145)
== END 2022-12-18 03:27 | disposition home or self-care (01) ==
PROVIDERS: Visit Provider Neurological Surgery
DX: C71.9 Malignant neoplasm of brain, unspecified (principal)
CPT/HCPCS: 36415; 80053; 85025

== ENCOUNTER 2022-12-30 02:57 | Outpatient (RCR) | payer MEDICARE, BC, SELFPAY ==
[2022-12-30 09:57] LABS: Abs Immature Grans 0.01 10^3/uL (0.0-0.06); Absolute Basophil Count 0.04 10^3/uL (0.0-0.2); Absolute Eosinophil Count 0.08 10^3/uL (0.0-0.7); Absolute Lymphocyte Count 0.72 10^3/uL (1.2-3.4); Absolute Neutrophil Count 5.33 10^3/uL (1.2-6.7); Basophils % 0.6; Eosinophils % 1.2; HCT 41.5 % (40.0-50.0); HGB 14.7 g/dL (13.5-17.5); Immature Grans % 0.1; Lymphocytes % 10.5; MCH 33.2 pg (27.0-33.0); MCHC 35.4 % (32.0-36.0); MCV 94 fL (80-95); MPV 9.7 fL (8.0-11.0); Monocytes % 10.2; Neutrophils % 77.4; Platelet Count 142 10^3/uL (130-400); RBC 4.43 10^6/uL (4.36-5.78); RDW 13.2 % (11.8-14.1); WBC 6.88 10^3/uL (4.4-10.8)
[2022-12-30 10:28] LABS: Ferritin 376 ng/mL (26-388)
== END 2023-01-03 23:59 | disposition home or self-care (01) ==
LOC: INF 02:57
PROVIDERS: Visit Provider Family Medicine
DX: E83.110 Hereditary hemochromatosis (principal)
CPT/HCPCS: 36415; 99195; 82728; 85025

== ENCOUNTER 2023-01-03 08:17 | Inpatient (IN) | payer MEDICARE, BC, SELFPAY ==
[2023-01-03] VITALS (100 sets, daily range): BP systolic 81–125; BP diastolic 49–73; PULSE 0–97; RESP 7–29; TEMP 36.7–37.3; O2SAT 92–100
--- NOTE | 2023-01-03 08:15 | RT.EKG_ITS ---
APPROVED REPORT Exam: Resting ECG Reason for Exam: Weakness Patient Location: E HR:84 bpm ECG Measurements Heart Rate 84 AXIS [place] 163 P 75 QRSd 98 QRS -25 QT 369 T 65 QTc 435 Conclusion Sinus rhythm...normal P axis, V-rate 60- 99 Low voltage, extremity leads...all extremity leads <0.5mV
[2023-01-03 08:59] LABS: Lactate 1.8 mmol/L (0.6-1.4)
[2023-01-03 09:00] LABS: Abs Immature Grans 0.02 10^3/uL (0.0-0.06); Absolute Basophil Count 0.03 10^3/uL (0.0-0.2); Absolute Eosinophil Count 0.08 10^3/uL (0.0-0.7); Absolute Lymphocyte Count 0.35 10^3/uL (1.2-3.4); Absolute Monocyte Count 0.88 10^3/uL (0.1-0.8); Absolute Neutrophil Count 8.08 10^3/uL (1.2-6.7); Basophils % 0.3; Eosinophils % 0.8; HCT 37.5 % (40.0-50.0); HGB 13.3 g/dL (13.5-17.5); Immature Grans % 0.2; Lymphocytes % 3.7; MCH 33.8 pg (27.0-33.0); MCHC 35.5 % (32.0-36.0); MCV 95 fL (80-95); MPV 9.5 fL (8.0-11.0); Monocytes % 9.3; Neutrophils % 85.7; Platelet Count 137 10^3/uL (130-400); RBC 3.94 10^6/uL (4.36-5.78); RDW 13.5 % (11.8-14.1); RDW-SD 47.6 fL; WBC 9.44 10^3/uL (4.4-10.8)
--- NOTE | 2023-01-03 09:00 | DI.CT_ITS ---
Exam(s) CT HEAD WO EXAM: CT HEAD WO CLINICAL HISTORY: confusion, hx of brain mass, weakness. TECHNIQUE: Imaging Protocol: Axial computed tomography images with coronal and sagittal reformatted images were created and reviewed COMPARISON: CT CT HEAD WO from 10/20/2021 FINDINGS: Ventricles and Extra axial spaces: Normal in size and morphology for the patient's age. Hemorrhage: None. Cerebral parenchyma: Area of low attenuation in the left parietal occipital region shows decreased ed kemar when compared with the previous exam. The previously noted mild compression of the posterior horn of the right lateral ventricle is no longer present. Calcifications are again noted, unchanged. No e vidence of new area of mass or acute infarct.. Midline shift: None. Brainstem/Cerebellum: Normal. Calvarium: [place] hole again noted left upper parietal region. Visualized Paranasal sinuses/Mastoids: Clear. Soft Tissues: Unremarkable. IMPRESSION: Decrease edema in the region of the previously noted mass. No acute intracranial process. RADIATION DOSE DELIVERED: 995.04mGy.cm Total DLP DATA REPOSITORY: All CT scans at this facility are submitted to the National Radiology Data Registry (NRDR) Dose Index Registry (DIR) with the [employer] (ACR). RADIATION OPTIMIZATION: All CT scans at this facility use at least one of these dose optimization te chniques: automated exposure control; mA and/or kV adjustment per patient size (includes targeted exa ms where dose is matched to clinical indication); or iterative reconstruction.
--- NOTE | 2023-01-03 09:06 | DI.RAD_ITS ---
Exam(s) XR PORTABLE CHEST AP EXAM: XR PORTABLE CHEST AP CLINICAL HISTORY: fever TECHNIQUE: 2D digital imaging was performed. COMPARISON: CR,XR XR PORTABLE CHEST AP from 06/26/2021 FINDINGS: LUNGS: Patchy infiltrate right upper lobe. Remainder of the lung shepard appear clear. No pleural ab normality seen. HEART: Normal size. AORTA: Normal diameter. Tortuous. BONES: Degenerative changes in the spine. Soft tissues: Unremarkable. IMPRESSION: Right upper lobe pneumonia. DATA REPOSITORY: RADIATION DOSE DELIVERED:
[2023-01-03] MEDS: Lactated Ringers 1,000 ML 1000 ML IV ×2 (09:10→15:35)
[2023-01-03 09:25] LABS: ALT 28 U/L (16-63); AST 61 U/L (15-37); Albumin 3.4 g/dL (3.4-5.0); Alkaline Phosphatase 155 U/L (46-116); Anion Gap 9.5 mmol/L (3-11); BUN 25 mg/dL (7-18); Bilirubin, Total 1.9 mg/dL (0.2-1.0); CO2 26.5 mmol/L (21.0-32.0); CREATININE 1.2 mg/dL (0.70-1.30); Calcium 9.2 mg/dL (8.5-10.1); Chloride 100 mmol/L (98-107); Estimated GFR 63.85 (mL/min/1.73m2); Glucose 140 mg/dL (74-106); Lipase 69 U/L (16-77); Magnesium 1.7 mg/dL (1.8-2.4); Sodium 136 mmol/L (136-145); Total Protein 6.8 g/dL (6.4-8.2); Troponin I < 50 ng/L (<or=60)
[2023-01-03] MEDS: CEFEPIME 2 GM in Normal Saline 100 ML IVPB ×2 (09:29→21:52)
[2023-01-03 09:42] LABS: COVID-19 PCR Negative (Negative); Source Nasopharynx
[2023-01-03 09:59] LABS: Procalcitonin 1.5 ng/mL
[2023-01-03 10:11] LABS: Ferritin 417 ng/mL (26-388)
[2023-01-03 11:02] LABS: Bilirubin Negative (Negative); Blood Negative (Negative); Clarity Clear (Clear); Glucose Negative (Negative); Ketones Negative (Negative); Leukocyte Esterase Negative (Negative); Nitrite Negative (Negative); Specific Gravity 1.015 (1.005-1.025); Urobilinogen 0.2 mg/dL (Up to 0.2); pH 7.5 (5-8)
[2023-01-03 11:54] LABS: Troponin I < 50 ng/L (<or=60)
--- NOTE | 2023-01-03 14:20 | HPE_ITS ---
Date of service: 01/03/23 Time of Service: 14:20 Assessment and Plan Assessment and plan (1) Sepsis: Status: Acute Assessment and plan: Treatment broad-spectrum antibiotics including cefepime add doxycycline for atypical organisms. Check sputum Gram stain culture if he is able to provide any. Check urine for Legionella antigen and strep antigen. Encourage use of incentive spirometer and Acapella. Monitor oxygen saturations. We will recheck his blood lactate level and continue resuscitation with IV fluids. We get to the point where he is received over 2 and half liters of IV fluids and he is still hypotensive then he will need vasopressors. We will add stress dose corticosteroids. Critical care time spent interviewing and examining the patient, reviewing studies, discussing case with patient's nurse and consulting physicians was 60 minutes (2) Pneumonia: Status: Acute (3) Oligodendroglioma: Status: Acute Assessment and plan: Patient had his latest round of chemotherapy 3 weeks ago. He is not neutropenic at present time. (4) Hypomagnesemia: Status: Acute Assessment and plan: Magnesium level was borderline low at 1.7. Patient was given a magnesium bolus in the emergency department we will repeat another bolus of magnesium and recheck his level in the morning. (5) Diabetes mellitus: Status: Chronic Assessment and plan: We will monitor blood sugars before meals and at bedtime and provide sliding scale insulin coverage using insulin sensitive scale. We will check a glycohemoglobin A1c. (6) Hereditary hemochromatosis: Status: Acute Assessment and plan: Patient gets monthly phlebotomies. He is mildly anemic which we will just monitor he does not require transfusions. (7) Essential hypertension: Status: Acute Assessment and plan: Holding antihypertensives while he is being treated for sepsis. 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 Last chemotherapy was about 3 weeks ago. He presents emergency department with chills, rigors, weakness and dizziness and a temp of 102 Fahrenheit recorded by EMS. On arrival he was found to be hypotensive the working diagnosis was sepsis. On arrival his blood pressure was low end of normal at 101/66 but then he declined down to systolic pressure in the 80s to 90s and was given 1 L of Ringer's lactate. Blood cultures were obtained chest x-ray was obtained and routine labs were obtained. Chest x-ray demonstrated right upper lobe pneumonia. Because of his confusion on arrival CT scan was performed which showed decreased edema in the region of the previously noted brain mass. This area of low-attenuation was in the left parietal-occipital region. Patient was empirically started on cefepime for treatment of community- acquired pneumonia with sepsis. Labs are remarkable for mildly elevated blood lactate of 1.8 and a procalcitonin level 1.5. Serial troponins were negative x2 sets. Rest of his CMP was remarkable for a low magnesium of 1.7 and elevated glucose of 140 and elevated BUN of 25 with a normal creatinine 1.2. Rest of his electrolytes are normal. LFTs showed a mild elevation of his AST at 61 and alkaline phosphatase 155. Lipase was normal at 69. ECG demonstrates sinus rhythm 84 bpm with low voltage but no acute ischemic ST or T wave changes. After the initial fluid bolus his blood pressures remain on the soft side with systolic pressures in the low 90s and therefore it was decided admit him to the intensive care unit for treatment of acute sepsis secondary to community- acquired pneumonia. Patient's comorbidities besides his oligodendroglioma including essential hypertension, hemochromatosis and asthma as well as diabetes mellitus type 2 not currently on any medication treatment. Since admission to the intensive care unit his blood pressure dropped again with systolic pressures of 81-92. Patient is being given another liter of lactated Ringer's and he will be started on stress dose corticosteroids. His pressure is not remaining adequate to keep his MAP of 65 mm or better we will start norepinephrine drip. 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) Loss of consciousness (Acute) Essential hypertension (Acute) Iron overload (Acute) [place] [facility] [place] 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 [facility] [place], phlebotomies to maintain goal of ferritin <100, monthly labs Diabetes mellitus (Chronic) Bronze diabetes (Chronic) Diagnosed 02/23 Family hx of colon cancer (Acute) Encounter for colonoscopy in patient with family history of colon cancer (Acute) Colorectal polyps (Acute) Medical History (Updated 01/03/23 @ 16:40 by Go Castle MD) Asthma HTN (hypertension) Seizure (~2021) onset at time of brain tumor diagnosis, last episode in 2022 Surgical History (Updated 12/23/19 @ 09:00 by Margoth Hewitt RN) History of colonoscopy x3 No significant past surgical history Family History Father , late 60's Adenocarcinoma Colon and lung Diabetes Sister , age 50 Ovarian cancer Sister Breast cancer FHx: mental illness maybe Bipolar Seizures FH: hemochromatosis Social History (Updated 12/24/22 @ 09:13 by Kianna Jarvis) Smoking/Tobacco Use Status: Never Smoking risk assessment performed?: Yes Alcohol Intake: current Alcohol Intake frequency: holidays/special occasions only Details: Social drinking Drug use: Never Substance use type: does not use Adopted: No Caregiver/Support person: Yes (partner) Foster care: No Household members: significant other Housing: house Number of Children: 0 number of grandchildren: 0 Communication Needs: Corrective Lenses Education Level: high school Details: With a couple of post high school grad classes Do you need help understanding health information?: Rarely current occupation: retired Pets and animals: No Sexually active: No Do you think of yourself as: lesbian/damon/homosexual Current gender identity: male What is your relationship status?: living with partner How often do you talk on the phone with friends or family?: three or more times per week How often do you get together with friends or relatives?: once per week Do you belong to any clubs or organized social groups?: no Panel score (0-1 are the most socially isolated patients): 2 What type of physical activity do you participate in: additional Details: Exercise limited due to recent chemo; will start using elliptical machine Frequency: 5-6 times per week Chen/Denominational: L[employer] Special chen needs: No Seatbelt use: always Helmet use: Yes Drive intox or ride w/intox 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 Working smoke detector in home: Yes Fire extinguisher in home: No Carbon monox detector in home: Yes Do you feel safe at home: Yes Do you feel safe in your relationship?: Yes Meds Allergies and Home Medications Allergies Allergy/AdvReac Type Severity Reaction Status Date / Time bee venom protein (honey bee) Allergy Severe Anaphylaxsi Verified 12/24/22 08:45 s Home Medications Medication Instructions Recorded Confirmed Type cholecalciferol (vitamin D3) 10 10 mcg PO DAILY 11/22/19 01/03/23 History mcg (400 unit) capsule glucosamine-chondroitin 250 mg-200 1 tab PO QPC 11/22/19 01/03/23 History mg tablet (Osteo Bi-Flex) magnesium gluconate 27 mg 27 mg PO DAILY 11/22/19 01/03/23 History magnesium (500 mg) tablet (Mag-G) turmeric 400 mg capsule 400 mg PO DAILY 11/22/19 01/03/23 History blood-glucose meter #1 ea 02/24/20 01/03/23 Rx lancets #200 ea 02/24/20 01/03/23 Rx blood sugar diagnostic (Blood #100 ea 11/01/21 01/03/23 Rx Glucose Test strips) levetiracetam 750 mg tablet 750 mg PO BID 05/27/22 01/03/23 History [employer] Sport Shake 1 oz PO 3XD Protein supplement 12/24/22 01/03/23 Rx #28.4 oz lisinopril 10 mg tablet 10 mg PO DAILY #90 tabs 12/24/22 01/03/23 Rx Exam Narrative Exam Narrative: Alert and oriented x4 HEENT: Atraumatic normocephalic, pupils equally round reactive to light and accommodation, extraocular motion intact, TMs intact, nares moist and patent without exudate or bleeding, oropharynx noninjected without exudate, teeth in g ood repair Neck: Supple, nontender, without thyromegaly or lymphadenopathy or JVD. Normal carotid pulses Lungs: Clear to auscultation and percussion Heart: Regular rate and rhythm without murmur rub or gallop. Normal apical impulse Abdomen: Nondistended, normal bowel sounds, nontender to palpation or percussion, no organomegaly, no bruits, no palpable masses Testes and penis: No testicular swelling or tenderness. Normal circumcised penis Extremities: Normal range of motion with normal strength. No peripheral cyanosis or edema. Normal pulses, skin appears to be powell throughout although the skin over unexposes areas i.e. groin are not as dark as his trunk and limbs and face Neurologic: Cranial nerves II through XII grossly within normal limits. Normal strength and sensation over the face trunk and extremities. DTRs within normal limits. No tremors or asterixis. No dysdiadochokinesia. Results Labs 01/03/23 08:47 01/03/23 08:47 Labs: Laboratory Results - last 24 hr 01/03/23 01/03/23 01/03/23 08:41 08:47 08:47 WBC RBC Hgb Hct MCV MCH MCHC RDW Plt Count MPV Immature Gran % Neutrophils % Lymphocytes % Monocytes % Eosinophils % Basophils % Nucleated RBC % Absolute Neutrophils Absolute Lymphocytes Absolute Monocytes Absolute Eosinophils Absolute Basophils VBG Lactate 1.8 H Sodium 136 Potassium 5.0 Chloride 100 Carbon Dioxide 26.5 Anion Gap 9.5 BUN 25 H Creatinine 1.2 Est GFR (CKD-EPI 2020) 63.85 Glucose 140 H Calcium 9.2 Magnesium 1.7 L Ferritin 417 H Total Bilirubin 1.9 H AST 61 H ALT 28 Alkaline Phosphatase 155 H Troponin I < 50 Total Protein 6.8 Albumin 3.4 Lipase 69 Procalcitonin Urine Color Urine Clarity Urine pH Ur Specific [place] Urine Protein Urine Ketones Urine Blood Urine Nitrite Urine Bilirubin Urine Urobilinogen Ur Leukocyte Esterase Urine Glucose COVID-19 Source SARS-CoV-2 (PCR) 01/03/23 01/03/23 01/03/23 08:47 08:47 08:52 WBC 9.44 RBC 3.94 L Hgb 13.3 L Hct 37.5 L MCV 95 MCH 33.8 H MCHC 35.5 RDW 13.5 Plt Count 137 MPV 9.5 Immature Gran % 0.2 Neutrophils % 85.7 Lymphocytes % 3.7 Monocytes % 9.3 Eosinophils % 0.8 Basophils % 0.3 Nucleated RBC % 0.0 Absolute Neutrophils 8.08 H Absolute Lymphocytes 0.35 L Absolute Monocytes 0.88 H Absolute Eosinophils 0.08 Absolute Basophils 0.03 VBG Lactate Sodium Potassium Chloride Carbon Dioxide Anion Gap BUN Creatinine Est GFR (CKD-EPI 2020) Glucose Calcium Magnesium Ferritin Total Bilirubin AST ALT Alkaline Phosphatase Troponin I Total Protein Albumin Lipase Procalcitonin 1.5 Urine Color Urine Clarity Urine pH Ur Specific [place] Urine Protein Urine Ketones Urine Blood Urine Nitrite Urine Bilirubin Urine Urobilinogen Ur Leukocyte Esterase Urine Glucose COVID-19 Source Nasopharynx SARS-CoV-2 (PCR) Negative 01/03/23 01/03/23 10:56 11:31 WBC RBC Hgb Hct MCV MCH MCHC RDW Plt Count MPV Immature Gran % Neutrophils % Lymphocytes % Monocytes % Eosinophils % Basophils % Nucleated RBC % Absolute Neutrophils Absolute Lymphocytes Absolute Monocytes Absolute Eosinophils Absolute Basophils VBG Lactate Sodium Potassium Chloride Carbon Dioxide Anion Gap BUN Creatinine Est GFR (CKD-EPI 2020) Glucose Calcium Magnesium Ferritin Total Bilirubin AST ALT Alkaline Phosphatase Troponin I < 50 Total Protein Albumin Lipase Procalcitonin Urine Color Yellow Urine Clarity Clear Urine pH 7.5 Ur Specific [place] 1.015 Urine Protein Negative Urine Ketones Negative Urine Blood Negative Urine Nitrite Negative Urine Bilirubin Negative Urine Urobilinogen 0.2 Ur Leukocyte Esterase Negative Urine Glucose Negative COVID-19 Source SARS-CoV-2 (PCR) Last Vital Signs Temp 37.3 C 01/03/23 08:20 Pulse 75 01/03/23 13:31 Resp 23 01/03/23 13:40 BP 96/56 L 01/03/23 13:31 Pulse Ox 96 01/03/23 13:40 Time Spent Time spent with Patient: 55-74 minutes Time was spent: preparing to see the patient(eg.review tests), obtaining and/or reviewing separately otained hiistory, ordering medications,tests, procedures, referring, communicating with other health morning caregiver, indepentently interpreting results, counseling the patient and care coordination
--- NOTE | 2023-01-03 14:44 | W.ED.GENAD ---
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 presents with report of generalized weakness and cough Patient secondary to presenting complaints and physical exam findings we will order sepsis work-up Chest x-ray with evidence of right upper lobe infiltrate Blood pressure soft at 100/60, his map has been greater than 65 throughout the entirety of this visit Cefepime was admitted for a right upper lobe infiltrate on chest x-ray, his exam is consistent with this finding, he is not hypoxic, has not been on steroids recently, he has not been febrile in the emergency department and he is not tachycardic, he would did not reportedly take his blood pressure medication today, he takes lisinopril 10 mg daily He per his partner Fliiberto is at his baseline mentation but the weakness is dramatically changed today he was unable to get out of bed reportedly Denies any significant falls or injuries. CT was ordered of patient's head secondary to self-reported increase in confusion, no evidence of acute abnormality on patient's CT scan per radiologist interpretation and my review No meningismus clinically No hypoxia or significant tachypnea, patient does meet sepsis criteria, he received sepsis bolus of LR and is receiving infusion at this time Urinalysis does not show evidence of infectious HPI General Date/Time Provider Initiated Documentation: 01/03/23 08:18. HPI Narrative: This 72-year-old male with past medical history of oligodendroglioma with recent completion of chemotherapy on 09 December, prior history of radiation last year. presents with weakness and dizziness since this morning. Temp of 102 per EMS. Unable to get out of bed per partner. Has been coughing, they both had upper respiratory symptoms for about 2 weeks now with significant exacerbation within the past 24 hours. At baseline level of mentation per partner. Patient denies any pain complaints. He states he feels generally weak. He feels as though he has been steadily declining over the past couple of months. States he feels slightly more confused than typical for him. Related Data Home Medications Medication Instructions Recorded Confirmed cholecalciferol (vitamin D3) 10 10 mcg PO DAILY 11/22/19 01/03/23 mcg (400 unit) capsule glucosamine-chondroitin 250 mg-200 1 tab PO QPC 11/22/19 01/03/23 mg tablet (Osteo Bi-Flex) magnesium gluconate 27 mg 27 mg PO DAILY 11/22/19 01/03/23 magnesium (500 mg) tablet (Mag-G) turmeric 400 mg capsule 400 mg PO DAILY 11/22/19 01/03/23 blood-glucose meter #1 ea 02/24/20 01/03/23 lancets #200 ea 02/24/20 01/03/23 blood sugar diagnostic (Blood #100 ea 11/01/21 01/03/23 Glucose Test strips) levetiracetam 750 mg tablet 750 mg PO BID 05/27/22 01/03/23 Mangatar Sport Shake 1 oz PO 3XD Protein supplement 12/24/22 01/03/23 #28.4 oz lisinopril 10 mg tablet 10 mg PO DAILY #90 tabs 12/24/22 01/03/23 Previous Rx's Medication Instructions Recorded blood-glucose meter #1 ea 02/24/20 lancets #200 ea 02/24/20 blood sugar diagnostic (Blood #100 ea 11/01/21 Glucose Test strips) Mangatar Sport Shake 1 oz PO 3XD Protein supplement 12/24/22 #28.4 oz lisinopril 10 mg tablet 10 mg PO DAILY #90 tabs 12/24/22 Allergies Allergy/AdvReac Type Severity Reaction Status Date / Time bee venom protein (honey bee) Allergy Severe Anaphylaxsi Verified 12/24/22 08:45 s General Stated Complaint: [facility]Medical ALYCIA: 3 PFSH All Active Problems (Updated 01/03/23 @ 14:50 by MILDRED Mei) Pneumonia (Acute) Sepsis (Acute) Unintentional weight loss of more than 7.5% body weight within 3 months (Acute) Hyperbilirubinemia (Acute) Altered taste (Acute) 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) Loss of consciousness (Acute) Essential hypertension (Acute) Iron overload (Acute) [place] [facility] [place] 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 [facility] [place], phlebotomies to maintain goal of ferritin <100, monthly labs Diabetes mellitus (Chronic) Bronze diabetes (Chronic) Diagnosed 02/23 Family hx of colon cancer (Acute) Encounter for colonoscopy in patient with family history of colon cancer (Acute) Colorectal polyps (Acute) Medical History (Updated 01/03/23 @ 14:50 by MILDRED Mei) Asthma HTN (hypertension) Surgical History (Updated 12/23/19 @ 09:00 by Margoth Hewitt RN) History of colonoscopy x3 No significant past surgical history Family History Father , late 60's Adenocarcinoma Colon and lung Diabetes Sister , age 50 Ovarian cancer Sister Breast cancer FHx: mental illness maybe Bipolar Seizures FH: hemochromatosis Social History (Updated 12/24/22 @ 09:13 by Kianna Jarvis) Smoking/Tobacco Use Status: Never Smoking risk assessment performed?: Yes Alcohol Intake: current Alcohol Intake frequency: holidays/special occasions only Details: Social drinking Drug use: Never Substance use type: does not use Adopted: No Caregiver/Support person: Yes (partner) Foster care: No Household members: significant other Housing: house Number of Children: 0 number of grandchildren: 0 Communication Needs: Corrective Lenses Education Level: high school Details: With a couple of post high school grad classes Do you need help understanding health information?: Rarely current occupation: retired Pets and animals: No Sexually active: No Do you think of yourself as: lesbian/damon/homosexual Current gender identity: male What is your relationship status?: living with partner How often do you talk on the phone with friends or family?: three or more times per week How often do you get together with friends or relatives?: once per week Do you belong to any clubs or organized social groups?: no Panel score (0-1 are the most socially isolated patients): 2 What type of physical activity do you participate in: additional Details: Exercise limited due to recent chemo; will start using elliptical machine Frequency: 5-6 times per week Chen/Latter Day: Anabaptism Special chen needs: No Seatbelt use: always Helmet use: Yes Drive intox or ride w/intox driver/merchandiser: No Working smoke detector in home: Yes Fire extinguisher in home: No Carbon monox detector in home: Yes Do you feel safe at home: Yes Do you feel safe in your relationship?: Yes Course Vital Signs Vital signs: Vital Signs Temperature 37.3 C 01/03/23 08:20 Pulse 87 01/03/23 08:20 Respiratory Rate 18 01/03/23 08:20 Blood Pressure 101/66 01/03/23 08:20 Pulse Oximetry 99 01/03/23 08:20 Temperature 36.9 C 01/03/23 14:16 Temperature Source Temporal Artery Scan 01/03/23 14:16 Pulse 71 01/03/23 14:16 Pulse 72 01/03/23 13:46 Respiratory Rate 11 L 01/03/23 14:16 Respiratory Effort Normal, Non-Labored 01/03/23 14:16 Respiratory Depth Normal 01/03/23 14:16 Respiratory Pattern Normal 01/03/23 14:16 Blood Pressure 90/58 L 01/03/23 14:16 Blood Pressure Mean 68 01/03/23 14:16 Blood Pressure Position Supine 01/03/23 14:16 Pulse Oximetry 96 01/03/23 14:16 Oxygen Delivery Method Room Air 01/03/23 14:16 Oxygen Flow Rate 0 01/03/23 14:16 Pain Level 0 01/03/23 14:16 Lab/Test Results Lab/Test Results: 01/03/23 09:20 Blood Blood Culture - Pending 01/03/23 08:47 Blood Blood Culture - Pending Laboratory Tests Range/Units 01/03/23 01/03/23 01/03/23 08:41 08:47 08:47 WBC (4.4-10.8) 10^3/uL RBC (4.36-5.78) 10^6/uL Hgb (13.5-17.5) g/dL Hct (40.0-50.0) % MCV (80-95) fL MCH (27.0-33.0) pg MCHC (32.0-36.0) % RDW (11.8-14.1) % Plt Count (130-400) 10^3/uL MPV (8.0-11.0) fL Immature Gran % Neutrophils % Lymphocytes % Monocytes % Eosinophils % Basophils % Nucleated RBC % (0.0-0.3) % Absolute Neutrophils (1.2-6.7) 10^3/uL Absolute Lymphocytes (1.2-3.4) 10^3/uL Absolute Monocytes (0.1-0.8) 10^3/uL Absolute Eosinophils (0.0-0.7) 10^3/uL Absolute Basophils (0.0-0.2) 10^3/uL VBG Lactate (0.6-1.4) mmol/L 1.8 H Sodium (136-145) mmol/L 136 Potassium (3.5-5.1) mmol/L 5.0 Chloride (98-107) mmol/L 100 Carbon Dioxide (21.0-32.0) mmol/L 26.5 Anion Gap (3-11) mmol/L 9.5 BUN (7-18) mg/dL 25 H Creatinine (0.70-1.30) mg/dL 1.2 Est GFR (CKD-EPI 2020) (mL/min/1.73m2) 63.85 Glucose (74-106) mg/dL 140 H Calcium (8.5-10.1) mg/dL 9.2 Magnesium (1.8-2.4) mg/dL 1.7 L Ferritin (26-388) ng/mL 417 H Total Bilirubin (0.2-1.0) mg/dL 1.9 H AST (15-37) U/L 61 H ALT (16-63) U/L 28 Alkaline Phosphatase (46-116) U/L 155 H Troponin I (<or=60) ng/L < 50 Total Protein (6.4-8.2) g/dL 6.8 Albumin (3.4-5.0) g/dL 3.4 Lipase (16-77) U/L 69 Procalcitonin ng/mL Urine Color (Yellow) Urine Clarity (Clear) Urine pH (5-8) Ur Specific Sumner (1.005-1.025) Urine Protein (Negative) mg/dL Urine Ketones (Negative) mg/dL Urine Blood (Negative) Urine Nitrite (Negative) Urine Bilirubin (Negative) Urine Urobilinogen (Up to 0.2) mg/dL Ur Leukocyte Esterase (Negative) Urine Glucose (Negative) mg/dL COVID-19 Source SARS-CoV-2 (PCR) (Negative) Range/Units 01/03/23 01/03/23 01/03/23 08:47 08:47 08:52 WBC (4.4-10.8) 10^3/uL 9.44 RBC (4.36-5.78) 10^6/uL 3.94 L Hgb (13.5-17.5) g/dL 13.3 L Hct (40.0-50.0) % 37.5 L MCV (80-95) fL 95 MCH (27.0-33.0) pg 33.8 H MCHC (32.0-36.0) % 35.5 RDW (11.8-14.1) % 13.5 Plt Count (130-400) 10^3/uL 137 MPV (8.0-11.0) fL 9.5 Immature Gran % 0.2 Neutrophils % 85.7 Lymphocytes % 3.7 Monocytes % 9.3 Eosinophils % 0.8 Basophils % 0.3 Nucleated RBC % (0.0-0.3) % 0.0 Absolute Neutrophils (1.2-6.7) 10^3/uL 8.08 H Absolute Lymphocytes (1.2-3.4) 10^3/uL 0.35 L Absolute Monocytes (0.1-0.8) 10^3/uL 0.88 H Absolute Eosinophils (0.0-0.7) 10^3/uL 0.08 Absolute Basophils (0.0-0.2) 10^3/uL 0.03 VBG Lactate (0.6-1.4) mmol/L Sodium (136-145) mmol/L Potassium (3.5-5.1) mmol/L Chloride (98-107) mmol/L Carbon Dioxide (21.0-32.0) mmol/L Anion Gap (3-11) mmol/L BUN (7-18) mg/dL Creatinine (0.70-1.30) mg/dL Est GFR (CKD-EPI 2020) (mL/min/1.73m2) Glucose (74-106) mg/dL Calcium (8.5-10.1) mg/dL Magnesium (1.8-2.4) mg/dL Ferritin (26-388) ng/mL Total Bilirubin (0.2-1.0) mg/dL AST (15-37) U/L ALT (16-63) U/L Alkaline Phosphatase (46-116) U/L Troponin I (<or=60) ng/L Total Protein (6.4-8.2) g/dL Albumin (3.4-5.0) g/dL Lipase (16-77) U/L Procalcitonin ng/mL 1.5 Urine Color (Yellow) Urine Clarity (Clear) Urine pH (5-8) Ur Specific Sumner (1.005-1.025) Urine Protein (Negative) mg/dL Urine Ketones (Negative) mg/dL Urine Blood (Negative) Urine Nitrite (Negative) Urine Bilirubin (Negative) Urine Urobilinogen (Up to 0.2) mg/dL Ur Leukocyte Esterase (Negative) Urine Glucose (Negative) mg/dL COVID-19 Source Nasopharynx SARS-CoV-2 (PCR) (Negative) Negative Range/Units 01/03/23 01/03/23 10:56 11:31 WBC (4.4-10.8) 10^3/uL RBC (4.36-5.78) 10^6/uL Hgb (13.5-17.5) g/dL Hct (40.0-50.0) % MCV (80-95) fL MCH (27.0-33.0) pg MCHC (32.0-36.0) % RDW (11.8-14.1) % Plt Count (130-400) 10^3/uL MPV (8.0-11.0) fL Immature Gran % Neutrophils % Lymphocytes % Monocytes % Eosinophils % Basophils % Nucleated RBC % (0.0-0.3) % Absolute Neutrophils (1.2-6.7) 10^3/uL Absolute Lymphocytes (1.2-3.4) 10^3/uL Absolute Monocytes (0.1-0.8) 10^3/uL Absolute Eosinophils (0.0-0.7) 10^3/uL Absolute Basophils (0.0-0.2) 10^3/uL VBG Lactate (0.6-1.4) mmol/L Sodium (136-145) mmol/L Potassium (3.5-5.1) mmol/L Chloride (98-107) mmol/L Carbon Dioxide (21.0-32.0) mmol/L Anion Gap (3-11) mmol/L BUN (7-18) mg/dL Creatinine (0.70-1.30) mg/dL Est GFR (CKD-EPI 2020) (mL/min/1.73m2) Glucose (74-106) mg/dL Calcium (8.5-10.1) mg/dL Magnesium (1.8-2.4) mg/dL Ferritin (26-388) ng/mL Total Bilirubin (0.2-1.0) mg/dL AST (15-37) U/L ALT (16-63) U/L Alkaline Phosphatase (46-116) U/L Troponin I (<or=60) ng/L < 50 Total Protein (6.4-8.2) g/dL Albumin (3.4-5.0) g/dL Lipase (16-77) U/L Procalcitonin ng/mL Urine Color (Yellow) Yellow Urine Clarity (Clear) Clear Urine pH (5-8) 7.5 Ur Specific Sumner (1.005-1.025) 1.015 Urine Protein (Negative) mg/dL Negative Urine Ketones (Negative) mg/dL Negative Urine Blood (Negative) Negative Urine Nitrite (Negative) Negative Urine Bilirubin (Negative) Negative Urine Urobilinogen (Up to 0.2) mg/dL 0.2 Ur Leukocyte Esterase (Negative) Negative Urine Glucose (Negative) mg/dL Negative COVID-19 Source SARS-CoV-2 (PCR) (Negative) Critical Care Time Critical Care Time Attestation: Approximately 45 minutes of critical care time secondary to IV antibiotic administration, diagnostic lab and imaging interpretation and review, admitting to the hospitalist, telemetry monitoring, IV antibiotic administration and ultimately admission to the intensive care unit
[2023-01-03] MEDS: Enoxaparin 40 MG/0.4 ML SYR SC (14:50)
[2023-01-03] MEDS: MAGNESIUM SULFATE 2 GM/50 ML BAG IVPB (14:50)
[2023-01-03] MEDS: DOXYCYCLINE 100 MG in Normal Saline 100 ML IVPB (15:09)
[2023-01-03 16:40] LABS: Lactate 2.1 mmol/L (0.6-1.4)
[2023-01-03 16:59] LABS: Troponin I < 50 ng/L (<or=60)
[2023-01-03] MEDS: Lactated Ringers 1,000 ML 150 ML IV ×2 (17:20→23:57)
[2023-01-03] MEDS: Hydrocortisone SOD SUC. 100 MG VIAL IVP (17:30)
[2023-01-03 20:22] LABS: Lactate 2.9 mmol/L (0.6-1.4)
[2023-01-03 20:34] LABS: BUN 20 mg/dL (7-18); CREATININE 1.2 mg/dL (0.70-1.30); Calcium 9.2 mg/dL (8.5-10.1); Chloride 104 mmol/L (98-107); Estimated GFR 63.85 (mL/min/1.73m2); Glucose 182 mg/dL (74-106); Potassium 4.5 mmol/L (3.5-5.1); Sodium 137 mmol/L (136-145)
[2023-01-03] MEDS: Fludrocortisone 0.1 MG TAB PO (20:57)
[2023-01-03] MEDS: levETIRAcetam 500 MG TAB PO (20:58)
[2023-01-03] MEDS: levETIRAcetam 250 MG TAB PO (20:58)
[2023-01-03] MEDS: Hydrocortisone SOD SUC. 100 MG VIAL 50 MG IVP (23:53)
[2023-01-04] VITALS (74 sets, daily range): BP systolic 85–138; BP diastolic 44–85; PULSE 40–79; RESP 9–24; TEMP 35.9–36.7; O2SAT 16–100
[2023-01-04] MEDS: DOXYCYCLINE 100 MG in Normal Saline 100 ML IVPB ×2 (02:30→13:53)
[2023-01-04 05:44] LABS: Lactate 0.9 mmol/L (0.6-1.4)
[2023-01-04 05:47] LABS: Abs Immature Grans 0.03 10^3/uL (0.0-0.06); Absolute Basophil Count 0.02 10^3/uL (0.0-0.2); Absolute Lymphocyte Count 0.55 10^3/uL (1.2-3.4); Absolute Monocyte Count 0.46 10^3/uL (0.1-0.8); Absolute Neutrophil Count 6.07 10^3/uL (1.2-6.7); Basophils % 0.3; HCT 31.9 % (40.0-50.0); HGB 11.1 g/dL (13.5-17.5); Immature Grans % 0.4; Lymphocytes % 7.7; MCH 33.5 pg (27.0-33.0); MCHC 34.8 % (32.0-36.0); MCV 96 fL (80-95); MPV 9.6 fL (8.0-11.0); Monocytes % 6.5; Neutrophils % 85.1; Platelet Count 115 10^3/uL (130-400); RBC 3.31 10^6/uL (4.36-5.78); RDW 13.6 % (11.8-14.1); WBC 7.13 10^3/uL (4.4-10.8)
[2023-01-04] MEDS: Hydrocortisone SOD SUC. 100 MG VIAL 50 MG IVP ×4 (05:55→23:52)
[2023-01-04 06:05] LABS: ALT 21 U/L (16-63); AST 47 U/L (15-37); Albumin 2.6 g/dL (3.4-5.0); Alkaline Phosphatase 115 U/L (46-116); BUN 20 mg/dL (7-18); Bilirubin, Total 1.2 mg/dL (0.2-1.0); CREATININE 1.1 mg/dL (0.70-1.30); Calcium 8.8 mg/dL (8.5-10.1); Chloride 108 mmol/L (98-107); Estimated GFR 70.88 (mL/min/1.73m2); Glucose 160 mg/dL (74-106); Potassium 4.3 mmol/L (3.5-5.1); Sodium 140 mmol/L (136-145); Total Protein 5.7 g/dL (6.4-8.2)
[2023-01-04 06:10] LABS: TSH 0.91 uIU/mL (0.36-3.74)
[2023-01-04] MEDS: Insulin Aspart 300 UNITS/3 ML PEN SC ×2 (07:50→17:10)
[2023-01-04] MEDS: Cholecalciferol (Vitamin D3) 400 UNIT TAB PO (08:16)
[2023-01-04] MEDS: levETIRAcetam 500 MG TAB PO (08:16)
[2023-01-04] MEDS: levETIRAcetam 250 MG TAB PO (08:16)
[2023-01-04] MEDS: Magnesium Gluconate 500 MG TAB PO (08:17)
[2023-01-04] MEDS: Fludrocortisone 0.1 MG TAB PO ×2 (08:17→20:51)
--- NOTE | 2023-01-04 08:26 | PDOC.CMIN ---
Date of service: 01/04/23 Time of Service: 08:26 Care Management Initial Assmt Initial Assessment REASON FOR HOSPITALIZATION:: sepsis PREVIOUS FUNCTIONAL STATUS/SOCIAL/FAMILY SUPPORTS:: Matthias lives in a single family home in [place], [place] with his partner Filiberto. Matthias retired from a position in [employer] in [facility] about 7 years ago. He and Filiberto moved to [place] at that time. Matthias is independent at baseline and does not receive any community services. CURRENT FUNCTIONAL STATUS:: Matthias was sitting up in a chair when CM met with him. He was very pleasant and engaged well with CM. Matthias shared that he has been receiving treatment for a brain tumor for the past year. He started with radiation therapy and just finished his course of chemotherapy in early December. He shared that he is happy that it is over so that he can now get stronger and return to his baseline level of functioning and energy. ADVANCE DIRECTIVES:: none on file Has patient been provided with info about the portal/API?: Yes Did the patient sign up for the portal?: Yes CODE STATUS:: DNR/DNI INSURANCE COVERAGE / FINANCIAL ISSUES:: Medicare BC/BS out of state also BC/BS of [place] as secondary CURRENT HOME/COMMUNITY SERVICES/EQUIPMENT:: none PRIMARY CARE PHYSICIAN:: Dayron Gusman POTENTIAL DISCHARGE NEEDS:: follow up with community providers and plan of care PATIENT/FAMILY EDUCATION NEEDS:: Review of discharge instructions, activity, limitations, follow up plan, discuss [employer] TRANSPORTATION:: via private vehicle with partner PLAN:: Anticipate Matthias will discharge home with no new services. He will follow up with his Oncologist, PCP and other providers and transport with his partner. CM will follow and assess for discharge planning needs. 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) Loss of consciousness (Acute) Essential hypertension (Acute) Iron overload (Acute) [place] [facility] [place] 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 [facility] [place], phlebotomies to maintain goal of ferritin <100, monthly labs Diabetes mellitus (Chronic) Bronze diabetes (Chronic) Diagnosed 02/23 Family hx of colon cancer (Acute) Encounter for colonoscopy in patient with family history of colon cancer (Acute) Colorectal polyps (Acute) Medical History (Updated 01/04/23 @ 10:42 by Go Castle MD) Asthma HTN (hypertension) Seizure (~2021) onset at time of brain tumor diagnosis, last episode in 2022 Surgical History (Updated 12/23/19 @ 09:00 by Margoth Hewitt RN) History of colonoscopy x3 No significant past surgical history Family History Father , late 60's Adenocarcinoma Colon and lung Diabetes Sister , age 50 Ovarian cancer Sister Breast cancer FHx: mental illness maybe Bipolar Seizures FH: hemochromatosis Social History (Updated 12/24/22 @ 09:13 by Kianna Jarvis) Smoking/Tobacco Use Status: Never Smoking risk assessment performed?: Yes Alcohol Intake: current Alcohol Intake frequency: holidays/special occasions only Details: Social drinking Drug use: Never Substance use type: does not use Adopted: No Caregiver/Support person: Yes (partner) Foster care: No Household members: significant other Housing: house Number of Children: 0 number of grandchildren: 0 Communication Needs: Corrective Lenses Education Level: high school Details: With a couple of post high school grad classes Do you need help understanding health information?: Rarely current occupation: retired Pets and animals: No Sexually active: No Do you think of yourself as: lesbian/damon/homosexual Current gender identity: male What is your relationship status?: living with partner How often do you talk on the phone with friends or family?: three or more times per week How often do you get together with friends or relatives?: once per week Do you belong to any clubs or organized social groups?: no Panel score (0-1 are the most socially isolated patients): 2 What type of physical activity do you participate in: additional Details: Exercise limited due to recent chemo; will start using elliptical machine Frequency: 5-6 times per week Chen/Orthodoxy: Jehovah'S Witness Special chen needs: No Seatbelt use: always Helmet use: Yes Drive intox or ride w/intox local intermodal truck driver: No Working smoke detector in home: Yes Fire extinguisher in home: No Carbon monox detector in home: Yes Do you feel safe at home: Yes Do you feel safe in your relationship?: Yes
[2023-01-04] MEDS: Docusate Sodium 100 MG CAP PO (08:40)
[2023-01-04] MEDS: Lactated Ringers 1,000 ML 150 ML IV (09:01)
[2023-01-04] MEDS: CEFEPIME 2 GM in Normal Saline 100 ML IVPB ×2 (09:10→20:51)
--- NOTE | 2023-01-04 09:45 | RT.EKG_ITS ---
APPROVED REPORT Exam: Resting ECG Reason for Exam: bradycardia Patient Location: I HR:54 bpm ECG Measurements Heart Rate 54 AXIS NV 164 P 93 QRSd 108 QRS 7 QT 472 T 80 QTc 448 Conclusion Sinus rhythm...normal P axis, V-rate 50- 99 Low voltage, extremity leads...all extremity leads <0.5mV
--- NOTE | 2023-01-04 10:08 | PGE_ITS ---
Date of Service Date of service: 01/04/23 Time of Service: 10:08 Assessment and Plan Assessment and plan (1) Sepsis: Status: Acute Assessment and plan: He has responded to broad spectrum antibiotics and iv fluids. lactate is now normal. vital signs stable. I have downgraded his status to med/surg. He may be able to go home either later today or tomorrow at latest. Professional time spent interviewing and examining patient, discussion of goals of care with hospital team (care management, nursing and consulting professionals) was 30 minutes. (2) Pneumonia: Status: Acute Assessment and plan: continue cefepime and doxycycline for now. (3) Oligodendroglioma: Status: Acute Assessment and plan: Patient had his latest round of chemotherapy 3 weeks ago. He is not neutropenic at present time. (4) Hypomagnesemia: Status: Resolved Assessment and plan: resolved. continue oral supplementation. (5) Diabetes mellitus: Status: Chronic Assessment and plan: We will monitor blood sugars before meals and at bedtime and provide sliding scale insulin coverage using insulin sensitive scale. We will check a glycohemoglobin A1c. (6) Hereditary hemochromatosis: Status: Acute Assessment and plan: Patient gets monthly phlebotomies. He is mildly anemic which we will just monitor he does not require transfusions. (7) Essential hypertension: Status: Acute Assessment and plan: Blood pressures are better but I am still holding his antihypertensives for now as his BP are soft. Subjective Subjective Interval history since last seen: patient is feeling better. He denies any dizziness, or nausea; no vomiting. Nursing reports that he is eating and drinking well. I will stop his IV fluids and if no orthostasis/hypotension, he possibly could be dc home on oral antibiotics for his pneumonia. He is not hypoxemic, not requiring any oxygen. Exam Narrative Exam Narrative: Alert, and oriented Lungs: clear except some tubular sounds from right upper anterior chest; no rhonchi or wheezing and no rales Heart: regular w/ harsh systolic murmur at LLSB and apex; no radiation into the base of the heart or the neck Abdomen: soft, nontender Legs/feet: no edema Objective Last Vital Signs Temp 35.9 C L 01/04/23 08:31 Pulse 67 01/04/23 08:31 Resp 20 01/04/23 08:31 BP 138/75 01/04/23 08:31 Pulse Ox 97 01/04/23 08:31 Laboratory Results - last 24 hr 01/03/23 01/03/23 01/03/23 02:10 02:10 08:41 WBC RBC Hgb Hct MCV MCH MCHC RDW Plt Count MPV Immature Gran % Neutrophils % Lymphocytes % Monocytes % Eosinophils % Basophils % Nucleated RBC % Absolute Neutrophils Absolute Lymphocytes Absolute Monocytes Absolute Eosinophils Absolute Basophils VBG Lactate 2.9 H* Sodium 137 Potassium 4.5 Chloride 104 Carbon Dioxide 24.0 Anion Gap 9.0 BUN 20 H Creatinine 1.2 Est GFR (CKD-EPI 2020) 63.85 Glucose 182 H Hemoglobin A1c Calcium 9.2 Magnesium Ferritin 417 H Total Bilirubin AST ALT Alkaline Phosphatase Troponin I Total Protein Albumin TSH Urine Color Urine Clarity Urine pH Ur Specific [place] Urine Protein Urine Ketones Urine Blood Urine Nitrite Urine Bilirubin Urine Urobilinogen Ur Leukocyte Esterase Urine Glucose 01/03/23 01/03/23 01/03/23 08:47 10:56 11:31 WBC RBC Hgb Hct MCV MCH MCHC RDW Plt Count MPV Immature Gran % Neutrophils % Lymphocytes % Monocytes % Eosinophils % Basophils % Nucleated RBC % Absolute Neutrophils Absolute Lymphocytes Absolute Monocytes Absolute Eosinophils Absolute Basophils VBG Lactate Sodium 136 Potassium 5.0 Chloride Carbon Dioxide Anion Gap BUN Creatinine 1.2 Est GFR (CKD-EPI 2020) Glucose Hemoglobin A1c Calcium Magnesium Ferritin Total Bilirubin AST ALT Alkaline Phosphatase Troponin I < 50 Total Protein Albumin TSH Urine Color Yellow Urine Clarity Clear Urine pH 7.5 Ur Specific [place] 1.015 Urine Protein Negative Urine Ketones Negative Urine Blood Negative Urine Nitrite Negative Urine Bilirubin Negative Urine Urobilinogen 0.2 Ur Leukocyte Esterase Negative Urine Glucose Negative 01/03/23 01/03/23 01/04/23 16:27 16:27 05:35 WBC RBC Hgb Hct MCV MCH MCHC RDW Plt Count MPV Immature Gran % Neutrophils % Lymphocytes % Monocytes % Eosinophils % Basophils % Nucleated RBC % Absolute Neutrophils Absolute Lymphocytes Absolute Monocytes Absolute Eosinophils Absolute Basophils VBG Lactate 2.1 H Sodium Potassium Chloride Carbon Dioxide Anion Gap BUN Creatinine Est GFR (CKD-EPI 2020) Glucose Hemoglobin A1c Calcium Magnesium 2.0 Ferritin Total Bilirubin AST ALT Alkaline Phosphatase Troponin I < 50 Total Protein Albumin TSH 0.91 Urine Color Urine Clarity Urine pH Ur Specific [place] Urine Protein Urine Ketones Urine Blood Urine Nitrite Urine Bilirubin Urine Urobilinogen Ur Leukocyte Esterase Urine Glucose 01/04/23 01/04/23 01/04/23 05:35 05:35 05:35 WBC 7.13 RBC 3.31 L Hgb 11.1 L D Hct 31.9 L MCV 96 H MCH 33.5 H MCHC 34.8 RDW 13.6 Plt Count 115 L MPV 9.6 Immature Gran % 0.4 Neutrophils % 85.1 Lymphocytes % 7.7 Monocytes % 6.5 Eosinophils % 0.0 Basophils % 0.3 Nucleated RBC % 0.0 Absolute Neutrophils 6.07 Absolute Lymphocytes 0.55 L Absolute Monocytes 0.46 Absolute Eosinophils 0.00 Absolute Basophils 0.02 VBG Lactate Sodium 140 Potassium 4.3 Chloride 108 H Carbon Dioxide 26.0 Anion Gap 6.0 BUN 20 H Creatinine 1.1 Est GFR (CKD-EPI 2020) 70.88 Glucose 160 H Hemoglobin A1c 5.0 Calcium 8.8 Magnesium Ferritin Total Bilirubin 1.2 H AST 47 H ALT 21 Alkaline Phosphatase 115 Troponin I Total Protein 5.7 L Albumin 2.6 L TSH Urine Color Urine Clarity Urine pH Ur Specific [place] Urine Protein Urine Ketones Urine Blood Urine Nitrite Urine Bilirubin Urine Urobilinogen Ur Leukocyte Esterase Urine Glucose 01/04/23 05:35 WBC RBC Hgb Hct MCV MCH MCHC RDW Plt Count MPV Immature Gran % Neutrophils % Lymphocytes % Monocytes % Eosinophils % Basophils % Nucleated RBC % Absolute Neutrophils Absolute Lymphocytes Absolute Monocytes Absolute Eosinophils Absolute Basophils VBG Lactate 0.9 Sodium Potassium Chloride Carbon Dioxide Anion Gap BUN Creatinine Est GFR (CKD-EPI 2020) Glucose Hemoglobin A1c Calcium Magnesium Ferritin Total Bilirubin AST ALT Alkaline Phosphatase Troponin I Total Protein Albumin TSH Urine Color Urine Clarity Urine pH Ur Specific [place] Urine Protein Urine Ketones Urine Blood Urine Nitrite Urine Bilirubin Urine Urobilinogen Ur Leukocyte Esterase Urine Glucose Reviewed Pertinent PMH: Yes Objective Narrative Objective Narrative: EKG done this morning d/t bradycardia overnight. Normal sinus bradycardia 54 bpm no ischemic changes, normal W[place] 164 ms, normal QTC 448 ms, normal QRS and P wave axis Time Spent with Patient Time Spent with Patient: 25-34 minutes Time was spent: preparing to see the patient(eg.review tests), ordering medications,tests, procedures, referring, communicating with other health lead caregiver, indepentently interpreting results, counseling the patient and care coordination
--- NOTE | 2023-01-04 10:10 | NUR.NOTE ---
EKG is performed.Nursing Note:
[2023-01-04] MEDS: Insulin NPH-Human 300 UNITS/3 ML PEN 13 UNIT SC ×2 (11:00→17:10)
--- NOTE | 2023-01-04 11:22 | NUR.NOTE ---
Patient's partner in to visit.Nursing Note:
[2023-01-04] MEDS: Lacosamide 100 MG TAB PO ×2 (11:45→20:51)
[2023-01-04] MEDS: Normal Saline Flush 10 ML SYR IVP ×2 (12:02→17:13)
--- NOTE | 2023-01-04 13:06 | NUR.NOTE ---
Endoscopy Rn meets with patient.Nursing Note:
[2023-01-04] MEDS: Polyethylene Glycol 3350 17 GM PACKET PO (13:26)
[2023-01-04] MEDS: Enoxaparin 40 MG/0.4 ML SYR SC (13:38)
[2023-01-05] VITALS (34 sets, daily range): BP systolic 110–152; BP diastolic 58–78; PULSE 36–64; RESP 16–18; TEMP 36.7–36.9; O2SAT 97–99
[2023-01-05] MEDS: DOXYCYCLINE 100 MG in Normal Saline 100 ML IVPB (01:31)
[2023-01-05] MEDS: Hydrocortisone SOD SUC. 100 MG VIAL 50 MG IVP ×2 (05:16→12:05)
[2023-01-05 05:56] LABS: Abs Immature Grans 0.04 10^3/uL (0.0-0.06); Absolute Basophil Count 0.01 10^3/uL (0.0-0.2); Absolute Eosinophil Count 0.01 10^3/uL (0.0-0.7); Absolute Lymphocyte Count 0.59 10^3/uL (1.2-3.4); Absolute Monocyte Count 0.47 10^3/uL (0.1-0.8); Absolute Neutrophil Count 7.29 10^3/uL (1.2-6.7); Basophils % 0.1; Eosinophils % 0.1; HCT 32.6 % (40.0-50.0); HGB 11.5 g/dL (13.5-17.5); Immature Grans % 0.5; MCH 33.9 pg (27.0-33.0); MCHC 35.3 % (32.0-36.0); MCV 96 fL (80-95); MPV 10.2 fL (8.0-11.0); Monocytes % 5.6; Neutrophils % 86.7; Platelet Count 117 10^3/uL (130-400); RBC 3.39 10^6/uL (4.36-5.78); RDW-SD 48.9 fL; WBC 8.41 10^3/uL (4.4-10.8)
[2023-01-05 06:18] LABS: BUN 26 mg/dL (7-18); CREATININE 1.1 mg/dL (0.70-1.30); Calcium 8.9 mg/dL (8.5-10.1); Chloride 106 mmol/L (98-107); Estimated GFR 70.88 (mL/min/1.73m2); Glucose 151 mg/dL (74-106); Potassium 4.3 mmol/L (3.5-5.1); Sodium 139 mmol/L (136-145)
[2023-01-05 07:06] LABS: Procalcitonin 1.2 ng/mL
[2023-01-05 07:10] LABS: Legionella Ag Detection Urine Negative (Negative)
[2023-01-05] MEDS: Lacosamide 100 MG TAB PO (08:08)
[2023-01-05] MEDS: Cholecalciferol (Vitamin D3) 400 UNIT TAB PO (08:08)
[2023-01-05] MEDS: Magnesium Gluconate 500 MG TAB PO (08:08)
[2023-01-05] MEDS: Fludrocortisone 0.1 MG TAB PO (08:08)
[2023-01-05] MEDS: Insulin NPH-Human 300 UNITS/3 ML PEN 13 UNIT SC (08:09)
[2023-01-05] MEDS: CEFEPIME 2 GM in Normal Saline 100 ML IVPB (10:14)
[2023-01-05] MEDS: Insulin Aspart 300 UNITS/3 ML PEN SC (12:06)
--- NOTE | 2023-01-05 12:07 | W.PM.DS.N ---
Date of service: 01/05/23 Time of Service: 12:07 DS: Diagnosis Discharge Diagnosis (1) Sepsis: Status: Resolved (2) Pneumonia: Status: Acute (3) Oligodendroglioma: Status: Acute (4) Hypomagnesemia: Status: Resolved (5) Diabetes mellitus: Status: Chronic (6) Hereditary hemochromatosis: Status: Chronic (7) Essential hypertension: Status: Chronic Discharge Plan Disposition Patient Disposition: Home Condition: Improving Discharge Details Reason For Visit: Pneumonia, Sepsis Admit Date/Time: 01/03/23 12:39 Admit Provider: Go Castle Attending Provider: Go Castle Primary Care Provider: None,None Hospital Course Hospital Course: 72-year-old male non-smoker with a history of oligodendroglioma diagnosed about a year ago completed radiation treatment last year currently undergoing chemotherapy treatment.? Last chemotherapy was about 3 weeks ago.? He presents emergency department with chills, rigors, weakness and dizziness and a temp of 102 Fahrenheit recorded by EMS.? On arrival he was found to be hypotensive the working diagnosis was sepsis. On arrival his blood pressure was low end of normal at 101/66 but then he declined down to systolic pressure in the 80s to 90s and was given 1 L of Ringer's lactate.? Blood cultures were obtained chest x-ray was obtained and routine labs were obtained.? Chest x-ray demonstrated right upper lobe pneumonia.? Because of his confusion on arrival CT scan was performed which showed decreased edema in the region of the previously noted brain mass.? This area of low-attenuation was in the left parietal-occipital region.? Patient was empirically started on cefepime for treatment of community-acquired pneumonia with sepsis. Patient was treated with cefepime and doxycycline and IV fluids. His blood pressure stayed stabilized. He never required supplemental oxygen as he maintained an oxygen saturation of 95 to 99% throughout his hospital course. His acute confusion resolved. His white cell count of 9400 on admission never increased and at the time of discharge his white cell count was normal at 8400. Patient was feeling markedly better not experiencing any dyspnea with activity. Patient was discharged home in markedly improved condition. His discharge medications included Augmentin 875 mg twice a day for 7 days and azithromycin Z-Alexandru. He is advised to follow-up with his primary care provider in the next week is recommended he have a follow-up chest x-ray in approximately 2 weeks. [facility] and New Rx's Prescriptions: New amoxicillin-pot clavulanate [Augmentin] 500-125 mg tablet 1 tab PO TID 7 Days Qty: 21 0RF azithromycin 250 mg tablet See Rx Instructions .ROUTE .COMPLEX Qty: 6 0RF Rx Instructions: For 250 mg dose pack: take 500 mg today (day 1), then 250 mg for 4 days (days 2-5) Continued (DME) blood-glucose meter Misc See Rx Instructions .ROUTE .MEDSUPPLY Qty: 1 0RF Rx Instructions: To check blood glucose; Dx: E83.119, to maintain HbA1c less than 6.5%; dispense covered brand (DME) lancets Misc See Rx Instructions .ROUTE .MEDSUPPLY Qty: 200 6RF Rx Instructions: Test QD; Dx: E83.119; to keep HbA1c less than 6.5%; dispense insurance preference Pusher Sport Shake 1 oz PO 3XD Qty: 28.4 6RF lisinopril 10 mg tablet 10 mg PO DAILY Qty: 90 3RF glucosamine-chondroitin [Osteo Bi-Flex] 250-200 mg tablet 1 tab PO QPC turmeric 400 mg capsule 400 mg PO DAILY magnesium gluconate [Mag-G] 27 mg magnesium (500 mg) tablet 27 mg PO DAILY cholecalciferol (vitamin D3) 10 mcg (400 unit) capsule 10 mcg PO DAILY (DME) Blood Glucose Test Strip See Rx Instructions .ROUTE .MEDSUPPLY Qty: 100 6RF Rx Instructions: Test daily; Dx: E11.9; to keep HbA1c less than 6.5%; dispense insurance preference lacosamide 100 mg tablet 100 mg PO BID Patient Comments: TAKE ONE TABLET BY MOUTH EVERY 12 HOURS Discharge Instructions Instructions: Community Acquired Pneumonia (DC) Additional Instructions: You were treated for community aquired pneumonia. your blood cultures showed no growth. Your sputum culture results are still pending but the gram stain looks like normal oral will. You were treated w/ broad spectrum antibiotics (cefepime). You are being discharged home on 7 days of Augmentin and 5 days of Azithromycin. You should have your PCP follow up w/ a chest xray in 10 to 14 days to ensure that the pneumonia has cleared. If you have fevers, shortness of breath or severe dizziness, or chest pain, return to the ER for evaluation. Referrals: Dayron Gusman DO [OSTEOPATHIC DOCTOR] - (call the office tomorrow for follow up office visit) Activity:: Activity as Tolerated Equipment/Supplies:: No Equipment Needed Diet:: Normal Diet Discharge Orders Discharge Orders: Discharge Order (Routine); Ordered 01/05/23 Ordered By: Go Castle Discharge Data Discharge Date/Time-TO BE ENTERED AT DEPARTURE: 01/05/23 13:20 DS: Summary Time Spent with Patient providing and/or coordinating discharge services: Greater than 30 minutes Specific discharge activities: Interview/exam of patient; review of discharge instructions, completion of prescriptions/discharge instructions; discussion w/ nursing and CM; documentation of hospital visit Status at Discharge Functional status at discharge: independent ambulation Overall status at discharge: patient is back to baseline Mental Status: mental status grossly normal Speech and Movement: speech and movement normal Mood: congruent mood Affect: normal affect Exam Narrative Exam Narrative: Alert and oriented x4 Lungs: Clear to auscultation and percussion Heart: Regular rate and rhythm, systolic murmur over aortic outflow tract, no thrill, heave or gallop Abdomen: Nondistended, normal bowel sounds, nontender to palpation or percussion, no organomegaly, no bruits, no palpable masses Extremities: No peripheral cyanosis or edema Neurologic: Cranial nerves II through XII grossly within normal limits. Normal strength and sensation over the face trunk and extremities. Psych Mental Status: mental status grossly normal Speech and Movement: speech and movement normal Mood: congruent mood Affect: normal affect DS: Data Vitals/I&O Vitals and I&O: Vital Signs Temperature 36.9 C 01/05/23 07:38 Temperature Source Temporal Artery Scan 01/05/23 07:38 Pulse 39 L 01/05/23 07:40 Pulse Rhythm Regular 01/05/23 07:40 Pulse 43 L 01/05/23 07:30 Respiratory Rate 18 01/05/23 07:38 Respiratory Effort Normal 01/05/23 07:40 Respiratory Depth Normal 01/05/23 07:40 Respiratory Pattern Normal 01/05/23 07:40 Blood Pressure 152/78 H 01/05/23 07:40 Blood Pressure Mean 58 01/04/23 15:41 Blood Pressure Position Sitting 01/04/23 08:31 Pulse Oximetry 99 01/05/23 07:40 Oxygen Delivery Method Room Air 01/05/23 07:38 Oxygen Flow Rate 0 01/05/23 07:38 Pain Level 0 01/05/23 07:40 Intake & Output 01/04/23 01/05/23 01/05/23 23:59 11:59 23:59 Intake Total 1740 / 4342.5 500 / 500 Output Total 975 / 1375 750 / 750 Balance 765 / 2967.5 -250 / -250 Intake: IV 100 / 2462.5 300 / 300 Oral 1640 / 1880 200 / 200 Output: Urine 975 / 1375 750 / 750 Other: Urine Color Yellow Yellow Urine Appearance Clear Clear Urine Odor Normal Comment at 1500 report in room discussed no urine output for all of dayshift. pt denies need to void at this time, pt does void at 1530 250 mls darker antonia urine, pt encouraged to drink and took additional 400mls of h20 lightly flavored with cranberry juice Voiding Methods Urinal Data Completed and Pending Labs on day of discharge: Labs from last 24 hours 01/05/23 01/05/23 01/05/23 05:49 05:49 05:49 WBC 8.41 RBC 3.39 L Hgb 11.5 L Hct 32.6 L MCV 96 H MCH 33.9 H MCHC 35.3 RDW 14.0 Plt Count 117 L MPV 10.2 Immature Gran % 0.5 Neutrophils % 86.7 Lymphocytes % 7.0 Monocytes % 5.6 Eosinophils % 0.1 Basophils % 0.1 Nucleated RBC % 0.0 Absolute Neutrophils 7.29 H Absolute Lymphocytes 0.59 L Absolute Monocytes 0.47 Absolute Eosinophils 0.01 Absolute Basophils 0.01 Sodium 139 Potassium 4.3 Chloride 106 Carbon Dioxide 24.0 Anion Gap 9.0 BUN 26 H Creatinine 1.1 Est GFR (CKD-EPI 2020) 70.88 Glucose 151 H Calcium 8.9 Procalcitonin 1.2 Cortisol Urine Legionella Ag 01/03/23 01/03/23 16:50 16:27 WBC RBC Hgb Hct MCV MCH MCHC RDW Plt Count MPV Immature Gran % Neutrophils % Lymphocytes % Monocytes % Eosinophils % Basophils % Nucleated RBC % Absolute Neutrophils Absolute Lymphocytes Absolute Monocytes Absolute Eosinophils Absolute Basophils Sodium Potassium Chloride Carbon Dioxide Anion Gap BUN Creatinine Est GFR (CKD-EPI 2020) Glucose Calcium Procalcitonin Cortisol 9 Urine Legionella Ag Negative 01/04/23 14:10 Nose MRSA Screen - Pending 01/04/23 05:30 Sputum Sputum Culture - Pending Preliminary micro results at discharge 01/03/23 09:20 Blood Culture - Preliminary Blood NO GROWTH 48 HOURS 01/03/23 08:47 Blood Culture - Preliminary Blood NO GROWTH 48 HOURS 01/04/23 14:10 MRSA Screen - Pending Nose 01/04/23 05:30 Sputum Culture - Pending Sputum PFSH All Active Problems Pneumonia (Acute) Unintentional weight loss of more than 7.5% body weight within 3 months (Acute) Hyperbilirubinemia (Acute) Altered taste (Acute) 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) Loss of consciousness (Acute) Essential hypertension (Chronic) Iron overload (Acute) 05/22/20 [facility] [place] Hematology Hereditary hemochromatosis (Chronic) 05/22/20 [facility] [place] Hematology, phlebotomies to maintain goal of ferritin <100, monthly labs Diabetes mellitus (Chronic) Bronze diabetes (Chronic) Diagnosed 02/23 Family hx of colon cancer (Acute) Encounter for colonoscopy in patient with family history of colon cancer (Acute) Colorectal polyps (Acute) Medical History Asthma HTN (hypertension) Seizure (~2021) onset at time of brain tumor diagnosis, last episode in 2022 Surgical History History of colonoscopy x3 No significant past surgical history Family History Father , late 60's Adenocarcinoma Colon and lung Diabetes Sister , age 50 Ovarian cancer Sister Breast cancer FHx: mental illness maybe Bipolar Seizures FH: hemochromatosis Social History Smoking/Tobacco Use Status: Never Smoking risk assessment performed?: Yes Alcohol Intake: current Alcohol Intake frequency: holidays/special occasions only Details: Social drinking Drug use: Never Substance use type: does not use Adopted: No Caregiver/Support person: Yes (partner) Foster care: No Household members: significant other Housing: house Number of Children: 0 number of grandchildren: 0 Communication Needs: Corrective Lenses Education Level: high school Details: With a couple of post high school grad classes Do you need help understanding health information?: Rarely current occupation: retired Pets and animals: No Sexually active: No Do you think of yourself as: lesbian/damon/homosexual Current gender identity: male What is your relationship status?: living with partner How often do you talk on the phone with friends or family?: three or more times per week How often do you get together with friends or relatives?: once per week Do you belong to any clubs or organized social groups?: no Panel score (0-1 are the most socially isolated patients): 2 What type of physical activity do you participate in: additional Details: Exercise limited due to recent chemo; will start using elliptical machine Frequency: 5-6 times per week Chen/Faith: Muslim Special chen needs: No Seatbelt use: always Helmet use: Yes Drive intox or ride w/intox 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
--- NOTE | 2023-01-05 16:40 | PDOC.CMDIS ---
Date of service: 02/04/23 Time of Service: 16:40 LACE Index Scoring Tool Questions: Length of Stay (in days): 2 Was the patient admitted via the E.D.?: Yes Comorbidities: Diabetes w/o Complication and Any Tumor E.D. Visits: 1 Answers: Total Score: 9 Risk of Readmission: Low Risk Care Management Discharge Plan Reason for Hospitalization: sepsis Discharge Plan: Matthias will discharge home with no new services. He will follow up with his Oncologist, PCP and other providers and transport with his partner Filiberto. Patient/Family Education Needs: Review of discharge instructions, activity, limitations, follow up plan, discuss Ask Me Three
[2023-01-06 12:09] LABS: Lyme Ab w Rflx to Lyme Confirm Negative (Negative)
[2023-01-06 18:06] LABS: Anaplasma phagocytophilum Negative (Negative); B. miyamotoi PCR Negative (Negative); Babesia divergens/MO-1 Negative (Negative); Babesia duncani Negative (Negative); Babesia microti Negative (Negative); Ehrlichia chaffeensis Negative (Negative); Ehrlichia ewingii/canis Negative (Negative); Ehrlichia muris eauclairensis Negative (Negative)
[2023-01-08 14:39] LABS: Streptococcus Pneumoniae Ag, U Negative (Negative)
== END 2023-01-05 13:20 | disposition home or self-care (01) | DRG 871 ==
LOC: ER 08:53 → ICU 14:50
PROVIDERS: Admitting Provider Internal Medicine; Emergency Provider Physician Assistant; Visit Provider Internal Medicine
DX: A41.9 Sepsis, unspecified organism (principal); J18.9 Pneumonia, unspecified organism; C71.9 Malignant neoplasm of brain, unspecified; E83.42 Hypomagnesemia; E11.9 Type 2 diabetes mellitus without complications; E83.110 Hereditary hemochromatosis; I10 Essential (primary) hypertension; Z79.899 Other long term (current) drug therapy; J45.909 Unspecified asthma, uncomplicated
CPT/HCPCS: 36415; 80048; 80053; 82533; 83690; 84145; 87040; 87081; 87449; 87635; 87798; 93005; J1650; 70450; 71045; 81003; 82728; 83036; 83605; 83735; 84443; 84484; 85025; 86618; 87070; 87205; 87899; 93010; 94667; 94668; 99232; 99239; 99291; J1720; J3490

== ENCOUNTER 2023-01-21 00:35 | Outpatient (CLI) | payer MEDICARE, BC, SELFPAY ==
--- NOTE | 2023-01-21 06:45 | DI.US_ITS ---
Exam(s) US ABDOMEN EXAM: US ABDOMEN CLINICAL HISTORY: Consistent elevation in bilirubin,hereditary hemochromatosis,e80.6 TECHNIQUE: Ultrasound abdomen performed using standard protocol. COMPARISON: No exams were available for comparison FINDINGS: ABDOMINAL AORTA AND IVC: Visualized portions normal caliber. PANCREAS: Normal where visualized. LIVER: Normal. Hepatopedal flow in the Portal Vein. GALLBLADDER:No evidence of cholelithiasis. No evidence of wall thickening. No pericholecystic fluid i dentified. BILIARY SYSTEM: Common bile duct measures < 7 mm. No intrahepatic biliary ductal dilation. MORGAN'S SIGN: Negative. KIDNEYS: Kidneys are symmetric in size. No evidence of renal calculi. No evidence of hydronephrosis. No renal mass or cyst identified. SPLEEN: Mildly enlarged measuring 13.7 cm. ASCITES: Mild perihepatic ascites. IMPRESSION: 1. Mild perihepatic ascites. 2. Mild splenomegaly. DATA REPOSITORY:
== END 2023-01-21 00:55 ==
LOC: DI 00:35
PROVIDERS: PCP Family Medicine; Visit Provider Family Medicine
DX: E83.110 Hereditary hemochromatosis; R18.8 Other ascites; R16.1 Splenomegaly, not elsewhere classified
CPT/HCPCS: 76700

== ENCOUNTER 2023-01-27 03:59 | Outpatient (RCR) | payer MEDICARE, BC, SELFPAY ==
[2023-01-27 09:04] LABS: Abs Immature Grans 0.03 10^3/uL (0.0-0.06); Absolute Basophil Count 0.04 10^3/uL (0.0-0.2); Absolute Eosinophil Count 0.07 10^3/uL (0.0-0.7); Absolute Lymphocyte Count 0.94 10^3/uL (1.2-3.4); Absolute Monocyte Count 0.72 10^3/uL (0.1-0.8); Absolute Neutrophil Count 4.54 10^3/uL (1.2-6.7); Basophils % 0.6; Eosinophils % 1.1; HCT 43.6 % (40.0-50.0); HGB 15.3 g/dL (13.5-17.5); Immature Grans % 0.5; Lymphocytes % 14.8; MCH 34.2 pg (27.0-33.0); MCHC 35.1 % (32.0-36.0); MCV 97 fL (80-95); MPV 9.6 fL (8.0-11.0); Monocytes % 11.4; Neutrophils % 71.6; Platelet Count 155 10^3/uL (130-400); RBC 4.48 10^6/uL (4.36-5.78); RDW 14.3 % (11.8-14.1); RDW-SD 51.8 fL; WBC 6.34 10^3/uL (4.4-10.8)
[2023-01-27 09:32] LABS: Ferritin 373 ng/mL (26-388)
[2023-01-27] MEDS: Normal Saline Flush 10 ML SYR IVP (09:34)
== END 2023-02-03 23:59 | disposition home or self-care (01) ==
LOC: INF 03:59
PROVIDERS: PCP Family Medicine; Visit Provider Family Medicine
DX: E83.110 Hereditary hemochromatosis (principal)
CPT/HCPCS: 36415; 99195; 82728; 85025

== ENCOUNTER 2023-01-28 15:38 | Outpatient (CLI) | payer MEDICARE, BC, SELFPAY ==
--- NOTE | 2023-01-28 15:30 | DI.RAD_ITS ---
Exam(s) XR CHEST 2V PA LATERAL EXAM: XR CHEST 2V PA LATERAL CLINICAL HISTORY: Pneumonia, J18.9, Check for resolution TECHNIQUE: 2D digital imaging was performed of the chest. Two images were obtained. PA and lateral views were obtained. COMPARISON: CR XR PORTABLE CHEST AP from 01/03/2023 FINDINGS: MEDIASTINUM: Normal. HEART: Normal. PULMONARY VASCULATURE: Normal. LUNGS: Clear. There has been resolution of the prior infiltrates. PLEURAL SPACE: No pleural effusion or pneumothorax. BONE:Within normal limits for the patient's age. OTHER FINDINGS:Nipple shadows are identified. IMPRESSION: No acute pulmonary findings. DATA REPOSITORY: RADIATION DOSE DELIVERED:
== END 2023-01-28 15:58 ==
LOC: DI 15:41
PROVIDERS: PCP Family Medicine; Visit Provider Family Medicine
DX: J18.9 Pneumonia, unspecified organism (principal)
CPT/HCPCS: 71046

== ENCOUNTER 2023-02-19 13:32 | Outpatient (CLI) | payer MEDICARE, BC, SELFPAY ==
[2023-02-19 12:57] LABS: Abs Immature Grans 0.03 10^3/uL (0.0-0.06); Absolute Basophil Count 0.03 10^3/uL (0.0-0.2); Absolute Eosinophil Count 0.05 10^3/uL (0.0-0.7); Absolute Lymphocyte Count 1.03 10^3/uL (1.2-3.4); Absolute Neutrophil Count 6.14 10^3/uL (1.2-6.7); Basophils % 0.4; Eosinophils % 0.6; HCT 37.9 % (40.0-50.0); Immature Grans % 0.4; Lymphocytes % 12.7; MCHC 34.3 % (32.0-36.0); MCV 96 fL (80-95); MPV 9.6 fL (8.0-11.0); Monocytes % 9.9; Platelet Count 108 10^3/uL (130-400); RBC 3.94 10^6/uL (4.36-5.78); RDW 14.1 % (11.8-14.1); RDW-SD 50.1 fL; WBC 8.08 10^3/uL (4.4-10.8)
[2023-02-19 13:22] LABS: Ferritin 499 ng/mL (26-388)
== END 2023-02-19 13:33 | disposition home or self-care (01) ==
LOC: LBO 13:33
PROVIDERS: PCP Family Medicine; Visit Provider Family Medicine
DX: E83.110 Hereditary hemochromatosis (principal)
CPT/HCPCS: 36415; 82728; 85025

== ENCOUNTER → 2023-02-19 14:15 | Outpatient (CLI) | payer MEDICARE, BC, SELFPAY ==
--- NOTE | 2023-02-19 12:45 | DI.RAD_ITS ---
Exam(s) XR CHEST 2V PA LATERAL EXAM: XR CHEST 2V PA LATERAL CLINICAL HISTORY: [id number] TECHNIQUE: 2D digital imaging was performed. COMPARISON: CR XR CHEST 2V PA LATERAL from 01/28/2023 FINDINGS: HEART: Normal size. Aorta: Not dilated. Mildly tortuous. PULMONARY VASCULATURE: Normal. LUNGS: Clear. PLEURAL SPACE: No pleural effusion or pneumothorax. BONE:Flowing osteophytes in the thoracic spine. IMPRESSION: No acute abnormality. DATA REPOSITORY: RADIATION DOSE DELIVERED:
== END ==
PROVIDERS: PCP Family Medicine; Visit Provider Family Medicine
DX: R05.9 Cough, unspecified (principal)
CPT/HCPCS: 36415; 71046; 82728; 85025

== ENCOUNTER 2023-02-26 02:08 | Inpatient (IN) | payer MEDICARE, BC, SELFPAY ==
[2023-02-26] VITALS (51 sets, daily range): BP systolic 94–125; BP diastolic 27–83; PULSE 65–124; RESP 16–17; TEMP 35.6–36.9; O2SAT 95–100
--- NOTE | 2023-02-26 02:15 | DI.CT_ITS ---
Exam(s) CT CHEST PE CTA EXAM: CT CHEST PE CTA CLINICAL HISTORY: cough, cancer, sob. TECHNIQUE: Imaging Protocol: Axial CT angiography was performed with multi-slice acquisition and mu lti-planar and/or 3D reconstructions. CONTRAST MATERIAL: Intravenous: Omnipaque 350 contrast volume:100 mL COMPARISON: CT CT BRAIN NECK CTA from 06/26/2021 FINDINGS: Tracheobronchial tree: Patent where visualized. Pulmonary parenchyma: There is a peripheral infiltrate in the left lower lobe. The lungs are otherwi se clear. No architectural distortion. Pulmonary Arteries: There are filling defects seen in branches of the pulmonary artery to all lobes. There is a large clot burden. Mediastinum and Connie: No dominant adenopathy or fluid collection. The esophagus is unremarkable. Visualized thyroid gland: Unremarkable. Pleura: No effusion or pneumothorax. Heart: The heart is not dilated. No coronary artery calcifications are seen. No pericardial effusion. The RV to LV ratio is less than 1. Aorta: Thoracic aorta non-dilated. No evidence of dissection. Upper abdomen: Unremarkable. Soft tissues: Unremarkable. Bones: There is a lytic lesion seen in the anterior aspect of the right 1st rib. There is also lytic lesion in the posterior aspect of the right 10th rib. IMPRESSION: 1. Bilateral central and peripheral pulmonary emboli. The RV to LV ratio is less than 1. 2. Peripheral infiltrate in the left lower lobe. Given the emboli, infarct cannot be excluded. 3. Lytic lesions in the right 1st rib and the right 10th rib. Metastatic disease is suspected. 4. Findings were discussed with the hospitalist at 5:05 p.m. on 02/26/2023. RADIATION DOSE DELIVERED: 331.62mGy.cm Total DLP DATA REPOSITORY: All CT scans at this facility are submitted to the National Radiology Data Registry (NRDR) Dose Index Registry (DIR) with the [employer] (ACR). RADIATION OPTIMIZATION: All CT scans at this facility use at least one of these dose optimization te chniques: automated exposure control; mA and/or kV adjustment per patient size (includes targeted exa ms where dose is matched to clinical indication); or iterative reconstruction.
--- NOTE | 2023-02-26 02:15 | RT.EKG_ITS ---
APPROVED REPORT Exam: Resting ECG Reason for Exam: chest pain Patient Location: E HR:76 bpm ECG Measurements Heart Rate 76 AXIS MD 192 P 87 QRSd 108 QRS -36 QT 375 T 85 QTc 421 Conclusion Sinus rhythm...normal P axis, V-rate 60- 99 Ventricular premature complex...V complex w/ short R-R interval Low voltage, extremity leads...all extremity leads <0.5mV Consider inferior infarct...Q >35mS in II III aVF Physician: no stemi, flat and inverted t waves in V1-2. concern for mild RHS
--- NOTE | 2023-02-26 02:34 | ED.GENADUL_ITS ---
Discharge Plan Disposition Patient Disposition: Admit to [facility] Condition: Improving Discharge Details Clinical Impression: Pulmonary embolism, Breath shortness Primary Care Provider: Dayron Gusman ED Provider: Tony Corey Home Meds and New Rx's Prescriptions: No Action (DME) blood-glucose meter Misc See Rx Instructions .ROUTE .MEDSUPPLY Qty: 1 0RF Rx Instructions: To check blood glucose; Dx: E83.119, to maintain HbA1c less than 6.5%; dispense covered brand (DME) lancets Misc See Rx Instructions .ROUTE .MEDSUPPLY Qty: 200 6RF Rx Instructions: Test QD; Dx: E83.119; to keep HbA1c less than 6.5%; dispense insurance preference epacube Sport Shake 1 oz PO 3XD Qty: 28.4 6RF lisinopril 10 mg tablet 10 mg PO DAILY Qty: 90 3RF glucosamine-chondroitin [Osteo Bi-Flex] 250-200 mg tablet 1 tab PO QPC turmeric 400 mg capsule 400 mg PO DAILY magnesium gluconate [Mag-G] 27 mg magnesium (500 mg) tablet 27 mg PO DAILY cholecalciferol (vitamin D3) 10 mcg (400 unit) capsule 10 mcg PO DAILY (DME) Blood Glucose Test Strip See Rx Instructions .ROUTE .MEDSUPPLY Qty: 100 6RF Rx Instructions: Test daily; Dx: E11.9; to keep HbA1c less than 6.5%; dispense insurance preference escitalopram oxalate 10 mg tablet 10 mg PO DAILY Qty: 60 1RF lacosamide 100 mg tablet 100 mg PO BID Patient Comments: TAKE ONE TABLET BY MOUTH EVERY 12 HOURS Medical Decision Making 72-year-old male with a past medical history of hereditary hemochromatosis, diabetes mellitus, hypertension, glioma/oligodendroglioma of the brain who presents today for evaluation of shortness of breath. Patient is not currently receiving any chemotherapy or radiation, however he did in the past. He states that for the past 3 weeks he has been short of breath, and last night particular/tonight he was extremely short of breath and could not breathe. He admits to occasional cough. EMS was called and patient was noted to be in the 90s for pulse oximetry. Patient was brought to the ER for further assessment. Patient denies any history of blood clots. He denies any other complaints at this time. No chest pain. No modifying factors otherwise. Exam demonstrates evidence of relatively clear lung sounds, stable vital signs. Differential includes PE, cardiac etiology, pneumonia. Will evaluate for these etiologies, monitor closely and reassess. Ultrasound-guided IV was needed to be placed, interestingly enough a small peripheral clot was noted on the patient's left upper extremity during placement. Because of this a right sided IV was placed instead. No superficial clot was noted there. 5:[address] scan shows evidence of central and peripheral pulmonary emboli. CT scan of the head was negative for any bleed. Hemoglobin stable at 13, lactate 2.2, electrolytes demonstrates slightly elevated potassium at 5.7, but the EKG does not show evidence of significant peaked T waves. Concern for potential hemolysis. We will get a repeat basic metabolic panel. We will start the patient on heparin. Patient otherwise remains hemodynamically stable. 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 Patient is DNR/DNI, but is definitely open to therapy. I discussed the case with the hospitalist , he agrees with the assessment and plan. I have extensively reviewed the treatment plan with the patient. I have addressed all patient concerns at this time. I have also discussed the plan with the admitting physician and they agree with the current assessment and plan and have agreed to assume responsibility for the patient. All parties demonstrate verbal understanding and agreement with our assessment and plan at this time. The documentation in this chart was dictated using [employer] dictation software. Please excuse any dictation errors. Repeat potassium is 5.1. No acute interventions needed at this time. FINDINGS: Pulmonary arteries: Moderate bilateral central and peripheral pulmonary emboli. Aorta: Unremarkable. No aortic aneurysm. No aortic dissection. Lungs: Minimal focal infiltrate in the periphery of the left lower lobe, could indicate early infarct in the setting of emboli. Pleural spaces: Unremarkable. No pneumothorax. No pleural effusion. Heart: Unremarkable. No cardiomegaly. No pericardial effusion Lymph nodes: Unremarkable. No enlarged lymph nodes. Liver: Minimal Lay hepatic ascites. Hepatic steatosis. Bones/joints: Unremarkable. No acute fracture. Soft tissues: Unremarkable. IMPRESSION: 1. Moderate bilateral central and peripheral pulmonary emboli. 2. Minimal Lay hepatic ascites. 3. Minimal focal infiltrate in the periphery of the left lower lobe, could in dicate early infarct in the setting of emboli. Thank you for allowing us to participate in the care of your patient. Dictated and Authenticated by: Mt Farfan MD 02/26/2023 4:17 AM Eastern Time ([place]) FINDINGS: Brain: Stable encephalomalacia and cortical calcifications of the posterior left hemisphere.. No hemorrhage. Unremarkable white matter. No mass effect. Cerebral ventricles: No ventriculomegaly. Paranasal sinuses: Visualized sinuses are unremarkable. No fluid levels. Mastoid air cells: Visualized mastoid air cells are well aerated. Bones/joints: Unremarkable. No acute fracture. Soft tissues: Unremarkable. IMPRESSION: No acute intracranial abnormality. ASSESSMENT: ASPECTS ([place] Stroke Program Early CT Score) is 10. Thank you for allowing us to participate in the care of your patient. Dictated and Authenticated by: Mt Farfan MD 02/26/2023 5:04 AM Eastern Time ([place]) HPI General Date/Time Provider Initiated Documentation: 02/26/23 02:27 . HPI Narrative: 72-year-old male with a past medical history of hereditary hemochromatosis, diabetes mellitus, hypertension, glioma/oligodendroglioma of the brain who presents today for evaluation of shortness of breath. Patient is not currently receiving any chemotherapy or radiation, however he did in the past. He states that for the past 3 weeks he has been short of breath, and last night particular/tonight he was extremely short of breath and could not breathe. He admits to occasional cough. EMS was called and patient was noted to be in the 90s for pulse oximetry. Patient was brought to the ER for further assessment. Patient denies any history of blood clots. He denies any other complaints at this time. No chest pain. No modifying factors otherwise. Related Data Home Medications Medication Instructions Recorded Confirmed cholecalciferol (vitamin D3) 10 10 mcg PO DAILY 11/22/19 01/03/23 mcg (400 unit) capsule glucosamine-chondroitin 250 mg-200 1 tab PO QPC 11/22/19 01/03/23 mg tablet (Osteo Bi-Flex) magnesium gluconate 27 mg 27 mg PO DAILY 11/22/19 01/03/23 magnesium (500 mg) tablet (Mag-G) turmeric 400 mg capsule 400 mg PO DAILY 11/22/19 01/03/23 blood-glucose meter #1 ea 02/24/20 01/03/23 lancets #200 ea 02/24/20 01/03/23 blood sugar diagnostic (Blood #100 ea 11/01/21 01/03/23 Glucose Test strips) [facility] Sport Shake 1 oz PO 3XD Protein supplement 12/24/22 01/03/23 #28.4 oz lisinopril 10 mg tablet 10 mg PO DAILY #90 tabs 12/24/22 01/03/23 lacosamide 100 mg tablet 100 mg PO BID 01/04/23 01/04/23 escitalopram oxalate 10 mg tablet 10 mg PO DAILY #60 tabs 02/03/23 Previous Rx's Medication Instructions Recorded blood-glucose meter #1 ea 02/24/20 lancets #200 ea 02/24/20 blood sugar diagnostic (Blood #100 ea 11/01/21 Glucose Test strips) [facility] Sport Shake 1 oz PO 3XD Protein supplement 12/24/22 #28.4 oz lisinopril 10 mg tablet 10 mg PO DAILY #90 tabs 12/24/22 escitalopram oxalate 10 mg tablet 10 mg PO DAILY #60 tabs 02/03/23 Allergies Allergy/AdvReac Type Severity Reaction Status Date / Time bee venom protein (honey bee) Allergy Severe Anaphylaxsi Verified 12/24/22 08:45 s General Stated Complaint: SOB ALYCIA: 2 Review of Systems All systems reviewed & are unremarkable except as noted in HPI and below PFSH All Active Problems (Updated 02/26/23 @ 05:17 by Tony Corey DO) Pulmonary embolism (Chronic) Breath shortness (Acute) Depressive disorder due to separate medical condition (Acute) Unintentional weight loss of more than 7.5% body weight within 3 months (Acute) Hyperbilirubinemia (Acute) Altered taste (Acute) 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) Loss of consciousness (Acute) Essential hypertension (Chronic) Iron overload (Acute) 05/22/20 [facility] – [place] Hemat[place] Hereditary hemochromatosis (Chronic) 05/22/20 [facility] – [place] Hematology, phlebotomies to maintain goal of ferritin <100, monthly labs Diabetes mellitus (Chronic) Bronze diabetes (Chronic) Diagnosed 02/23 Family hx of colon cancer (Acute) Encounter for colonoscopy in patient with family history of colon cancer (Acute) Colorectal polyps (Acute) Medical History Asthma HTN (hypertension) Seizure (~2021) onset at time of brain tumor diagnosis, last episode in 2022 Surgical History History of colonoscopy x3 No significant past surgical history Family History Father , late 60's Adenocarcinoma Colon and lung Diabetes Sister , age 50 Ovarian cancer Sister Breast cancer FHx: mental illness maybe Bipolar Seizures FH: hemochromatosis Social History Smoking/Tobacco Use Status: Never Smoking risk assessment performed?: Yes Alcohol Intake: current Alcohol Intake frequency: holidays/special occasions only Details: Social drinking Drug use: Never Substance use type: does not use Adopted: No Caregiver/Support person: Yes (partner) Foster care: No Household members: significant other Housing: house Number of Children: 0 number of grandchildren: 0 Communication Needs: Corrective Lenses Education Level: high school Details: With a couple of post high school grad classes Do you need help understanding health information?: Rarely current occupation: retired Pets and animals: No Sexually active: No Do you think of yourself as: lesbian/damon/homosexual Current gender identity: male What is your relationship status?: living with partner How often do you talk on the phone with friends or family?: three or more times per week How often do you get together with friends or relatives?: once per week Do you belong to any clubs or organized social groups?: no Panel score (0-1 are the most socially isolated patients): 2 What type of physical activity do you participate in: additional Details: Exercise limited due to recent chemo; will start using elliptical machine Frequency: 5-6 times per week Chen/Restorationist: Scientologist Special chen needs: No Seatbelt use: always Helmet use: Yes Drive intox or ride w/intox delivery driver/customer service: No Working smoke detector in home: Yes Fire extinguisher in home: No Carbon monox detector in home: Yes Do you feel safe at home: Yes Do you feel safe in your relationship?: Yes Exam Narrative Exam Narrative: 1.Const: Thin and cachectic appearing 2.Eyes: PERRL, no conjunctival injection, and symmetrical lids. 3.ENT: Atraumatic external nose and ears. Moist MM. Neck: Symmetric, trachea midline, No thyromegaly. 4.CVS: +S1/S2, No murmurs or gallops. Peripheral pulses 2+ and equal in all extr emities. Brisk capillary refill in all extremities. 5.RESP: Unlabored respiratory effort. Clear to auscultation bilaterally. No wheezes rales or rhonchi 6.GI: Soft, Nontender/Nondistended, No hepatosplenomegaly. No guarding or rebound. 7.MSK: Normocephalic/Atraumatic, Extremities w/o deformity or ttp No cyanosis or clubbing, Normal movement of all extremities 8.Skin: Warm, Dry. No rashes or lesions. 9.Neuro: manager enrollment II-XII grossly intact. Sensation grossly intact, no focal neurologic deficits. 10.Psych: (AAO) x3. Appropriate mood and affect Course Vital Signs Vital signs: Vital Signs Temperature 36.9 C 02/26/23 02:26 Pulse 74 02/26/23 02:26 Respiratory Rate 16 02/26/23 02:26 Blood Pressure 111/77 02/26/23 02:26 Pulse Oximetry 97 02/26/23 02:26 Temperature 36.9 C 02/26/23 02:26 Temperature Source Tympanic 02/26/23 02:26 Pulse 74 02/26/23 02:26 Respiratory Rate 16 02/26/23 02:26 Blood Pressure 111/77 02/26/23 02:26 Blood Pressure Position Supine 02/26/23 02:26 Pulse Oximetry 97 02/26/23 02:26 Oxygen Delivery Method Room Air 02/26/23 02:26 Oxygen Flow Rate 0 02/26/23 02:26 Procedures EJ/Peripheral Line Arm R: Time Out Performed: Yes Skin Cleansed in Sterile Fashion: Yes Size (gauge): 20 IV Secured and Dressing Applied: Yes Patient Tolerated Procedure: well and no complications Additional Comments: Candidate vein examined with linear array probe - confirmed collapsibility, lack of pulsatility, and proper anatomic location. Using aseptic technique, IV catheter inserted with flash of blood noted, flow of venous blood confirmed. Flushes easily and without pain. No hematoma or complications noted. IV secured. Patient tolerated well. Critical Care Time Critical Care Time Critical Care Time: Yes Total Critical Care Time: 45 Attestation: Upon my evaluation, this patient had a high probability of imminent or life- threatening deterioration, which required my direct attention, intervention, and personal management. I have personally provided 45 minutes of critical care time exclusive of time spent on separately billable procedures. Time includes review of laboratory data, radiology results, discussion with consultants, and monitoring for potential decompensation. Interventions were performed as documented.
[2023-02-26 03:20] LABS: BE (Venous) -1 mmol/L (-2-3); HCO3 (Venous) 25 mmol/L (23-28); O2 Sat (Venous) 83 %; TCO2 (Venous) 23 mmol/L (24-29); pCO2 (Venous) 45 mmHg (41-51); pH (Venous) 7.35 (7.31-7.41); pO2 (Venous) 51 mmHg
[2023-02-26 03:22] LABS: Abs Immature Grans 0.03 10^3/uL (0.0-0.06); Absolute Basophil Count 0.02 10^3/uL (0.0-0.2); Absolute Eosinophil Count 0.04 10^3/uL (0.0-0.7); Absolute Lymphocyte Count 0.85 10^3/uL (1.2-3.4); Absolute Monocyte Count 0.73 10^3/uL (0.1-0.8); Absolute Neutrophil Count 4.34 10^3/uL (1.2-6.7); Basophils % 0.3; Eosinophils % 0.7; HCT 38.1 % (40.0-50.0); HGB 13.1 g/dL (13.5-17.5); Immature Grans % 0.5; Lymphocytes % 14.1; MCH 33.3 pg (27.0-33.0); MCHC 34.4 % (32.0-36.0); MCV 97 fL (80-95); MPV 9.7 fL (8.0-11.0); Monocytes % 12.1; Neutrophils % 72.3; Platelet Count 119 10^3/uL (130-400); RBC 3.93 10^6/uL (4.36-5.78); RDW 14.5 % (11.8-14.1); RDW-SD 50.8 fL; WBC 6.01 10^3/uL (4.4-10.8)
[2023-02-26 03:27] LABS: Lactate 2.2 mmol/L (0.6-1.4)
[2023-02-26 03:43] LABS: ALT 24 U/L (16-63); AST 84 U/L (15-37); Albumin 2.9 g/dL (3.4-5.0); Alkaline Phosphatase 264 U/L (46-116); Anion Gap 8.2 mmol/L (3-11); BUN 33 mg/dL (7-18); Bilirubin, Total 1.4 mg/dL (0.2-1.0); CO2 24.8 mmol/L (21.0-32.0); Calcium 10.6 mg/dL (8.5-10.1); Chloride 100 mmol/L (98-107); Estimated GFR 79.47 (mL/min/1.73m2); Glucose 123 mg/dL (74-106); Potassium 5.7 mmol/L (3.5-5.1); Sodium 133 mmol/L (136-145); Total Protein 6.7 g/dL (6.4-8.2)
[2023-02-26] MEDS: Omnipaque 350 MG/ML 100 ML BTL IJ (03:46)
[2023-02-26] MEDS: Normal Saline Flush 10 ML SYR IVP (03:47)
[2023-02-26] MEDS: Normal Saline - Diluent 50 ML VIAL IJ (03:47)
[2023-02-26 03:52] LABS: NT-proBNP 571 pg/mL (<300); Troponin I < 50 ng/L (<or=60)
[2023-02-26 04:09] LABS: COVID-19 PCR Negative (Negative); Influenza A PCR Negative (Negative); Influenza B PCR Negative (Negative); RSV PCR Negative (Negative)
[2023-02-26 04:12] LABS: Source Nasopharynx
[2023-02-26 04:17] LABS: INR 1.1 (0.9-1.1); PTT Activated 27.1 sec (21.5-31.9); Prothrombin Time 11.2 sec (9.3-11.0)
--- NOTE | 2023-02-26 04:18 | DI.VRAD_ITS ---
Addendum created by Mt Farfan MD on 02/26/2023 4:19:53 AM EDT: THIS REPORT CONTAINS FINDINGS THAT MAY BE CRITICAL TO PATIENT CARE. The findings were discussed with KEATON ALICEA at 4:19 AM EDT on 02/26/2023. The findings were acknowledged and understood. Initial report created on 02/26/2023 4:17:31 AM EDT: PROCEDURE INFORMATION: Exam: CTA Chest With Contrast Exam date and time: 02/26/2023 3:51 AM Age: 72 years old Clinical indication: Cough and shortness of breath; Patient HX: Couch, SOB, cancer TECHNIQUE: Imaging protocol: Computed tomographic angiography of the chest with contrast. Exam focused on the arteries. 3D rendering (Not supervised by radiologist): MIP and/or 3D reconstructed images were created by the technologist. Contrast material: OMNIPAQUE 350; Contrast volume: 100 ml; Contrast route: INTRAVENOUS (IV); COMPARISON: CR XR CHEST 2V PA LATERAL 02/19/2023 1:13 PM FINDINGS: Pulmonary arteries: Moderate bilateral central and peripheral pulmonary emboli. Aorta: Unremarkable. No aortic aneurysm. No aortic dissection. Lungs: Minimal focal infiltrate in the periphery of the left lower lobe, could indicate early infarct in the setting of emboli. Pleural spaces: Unremarkable. No pneumothorax. No pleural effusion. Heart: Unremarkable. No cardiomegaly. No pericardial effusion. Lymph nodes: Unremarkable. No enlarged lymph nodes. Liver: Minimal Lay hepatic ascites. Hepatic steatosis. Bones/joints: Unremarkable. No acute fracture. Soft tissues: Unremarkable. IMPRESSION: 1. Moderate bilateral central and peripheral pulmonary emboli. 2. Minimal Lay hepatic ascites. 3. Minimal focal infiltrate in the periphery of the left lower lobe, could indicate early infarct in the setting of emboli. Dictated and Authenticated by: Mt Farfan MD. Ordering:MOHINI Jimenez MD
--- NOTE | 2023-02-26 04:30 | DI.CT_ITS ---
Exam(s) CT HEAD WO EXAM: CT HEAD WO CLINICAL HISTORY: fall, r/o bleed. TECHNIQUE: Imaging Protocol: Axial computed tomography images with coronal and sagittal reformatted images were created and reviewed COMPARISON: CT CT HEAD WO from 01/03/2023 FINDINGS: Ventricles and Extra axial spaces: Normal in size and morphology for the patient's age. Hemorrhage: None. Cerebral parenchyma: Stable encephalomalacia in cortical calcifications in the left posterior hemisph ere. Mild white matter disease. Midline shift: None. Brainstem/Cerebellum: Normal. Calvarium: Normal. Visualized Paranasal sinuses/Mastoids: Clear. Soft Tissues: Unremarkable. IMPRESSION: No acute intracranial process. RADIATION DOSE DELIVERED: 783.57mGy.cm Total DLP DATA REPOSITORY: All CT scans at this facility are submitted to the National Radiology Data Registry (NRDR) Dose Index Registry (DIR) with the [employer] (ACR). RADIATION OPTIMIZATION: All CT scans at this facility use at least one of these dose optimization te chniques: automated exposure control; mA and/or kV adjustment per patient size (includes targeted exa ms where dose is matched to clinical indication); or iterative reconstruction.
[2023-02-26] MEDS: Heparin in 0.45% NaCl 25,000 UNIT/250 ML BAG 13 UNIT IV (05:02)
--- NOTE | 2023-02-26 05:04 | DI.VRAD_ITS ---
PROCEDURE INFORMATION: Exam: CT Head Without Contrast Exam date and time: 02/26/2023 4:45 AM Age: 72 years old Clinical indication: Other: HX of oligodendroglioma, fall TECHNIQUE: Imaging protocol: Computed tomography of the head without contrast. Radiation optimization: All CT scans at this facility use at least one of these dose optimization techniques: automated exposure control; mA and/or kV adjustment per patient size (includes targeted exams where dose is matched to clinical indication); or iterative reconstruction. Other technique: STROKE PROTOCOL was implemented. COMPARISON: MR HEAD W WO CONTRAST 01/17/2023 10:54 AM FINDINGS: Brain: Stable encephalomalacia and cortical calcifications of the posterior left hemisphere.. No hemorrhage. Unremarkable white matter. No mass effect. Cerebral ventricles: No ventriculomegaly. Paranasal sinuses: Visualized sinuses are unremarkable. No fluid levels. Mastoid air cells: Visualized mastoid air cells are well aerated. Bones/joints: Unremarkable. No acute fracture. Soft tissues: Unremarkable. IMPRESSION: No acute intracranial abnormality. ASSESSMENT: ASPECTS ([place] Stroke Program Early CT Score) is 10. Dictated and Authenticated by: Mt Farfan MD. Ordering:MOHINI Jimenez MD
--- NOTE | 2023-02-26 05:16 | HPE_ITS ---
Date of service: 02/26/23 Time of Service: 05:16 Assessment and Plan Assessment and plan (1) Pulmonary embolism: Start date: 02/26/23 Status: Acute Assessment and plan: This is a 72-year-old gentleman who is fairly immobilized and has swelling of his presenting with bilateral PE which is quite extensive. He will be admitted for IV heparinization and evaluation of cardiac strain to determine long-term treatment. He is presently on room air without hypoxemia. He is a DNR/DNI. (2) Oligodendroglioma: Status: Chronic Assessment and plan: Progressive weakness over the left more than right now with swelling left leg and possible DVT causing bilateral PE. Evaluate and treat the patient on hold for chemotherapy and radiation therapy at this time considering palliative care. He is a DNR/DNI. (3) Diabetes mellitus: Status: Chronic Assessment and plan: Glucometer measurements with insulin coverage while hospitalized. 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 (5) HTN (hypertension): Assessment and plan: Continue outpatient medical therapy adjusting as needed. (6) Asthma: Assessment and plan: Continue outpatient inhaler therapy. (7) Seizure: Assessment and plan: Continue outpatient therapy monitoring for recurrence patient is under stress. History of Present Illness History of Present Illness Chief Complaint: Shortness of breath on exertion with cough Narrative: This is a 72-year-old male patient with history of hereditary hemochromatosis with diabetes mellitus and an oligodendroglioma of the brain with a DNR/DNI and presents with shortness of breath. He has not been receiving any treatment for his brain tumor. He i has been having some shortness of breath with occasional cough and was extremely short of breath the day prior to presentation. In the ED he was found to have a stable CT of the head but bilateral PE with significant clot load. He was hemodynamically stable and BNP was only slightly up at 571. Troponin was negative. EKG showed no acute ischemic changes. He is admitted for IV heparin infusion with no evidence of bleeding in his brain by repeat CT and aggressive treatment of his bilateral PE. Oxygen supplementation as needed. He also will be receiving echocardiogram when available. He is a DNR/DNI. Review of Systems Narrative: 13 point review of systems otherwise unrevealing or stable. Patient does have progressive weakness over his left side. He did notice his left leg swelling slightly more than the right. 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 (Acute) Loss of consciousness (Acute) Essential hypertension (Chronic) Iron overload (Acute) [place] [facility] [place] Hereditary hemochromatosis (Chronic) [place]/22/20 [facility] [place], phlebotomies to maintain goal of ferritin <100, monthly labs Diabetes mellitus (Chronic) Bronze diabetes (Chronic) Diagnosed 02/23 Family hx of colon cancer (Acute) Encounter for colonoscopy in patient with family history of colon cancer (Acute) Colorectal polyps (Acute) Medical History Asthma HTN (hypertension) Seizure (~2021) onset at time of brain tumor diagnosis, last episode in 2022 Surgical History History of colonoscopy x3 No significant past surgical history Family History Father , late 60's Adenocarcinoma Colon and lung Diabetes Sister , age 50 Ovarian cancer Sister Breast cancer FHx: mental illness maybe Bipolar Seizures FH: hemochromatosis Social History Smoking/Tobacco Use Status: Never Smoking risk assessment performed?: Yes Alcohol Intake: current Alcohol Intake frequency: holidays/special occasions only Details: Social drinking Drug use: Never Substance use type: does not use Adopted: No Caregiver/Support person: Yes (partner) Foster care: No Household members: significant other Housing: house Number of Children: 0 number of grandchildren: 0 Communication Needs: Corrective Lenses Education Level: high school Details: With a couple of post high school grad classes Do you need help understanding health information?: Rarely current occupation: retired Pets and animals: No Sexually active: No Do you think of yourself as: lesbian/damon/homosexual Current gender identity: male What is your relationship status?: living with partner How often do you talk on the phone with friends or family?: three or more times per week How often do you get together with friends or relatives?: once per week Do you belong to any clubs or organized social groups?: no Panel score (0-1 are the most socially isolated patients): 2 What type of physical activity do you participate in: additional Details: Exercise limited due to recent chemo; will start using elliptical machine Frequency: 5-6 times per week Chen/Jehovah'S Witness: Islam Special chen needs: No Seatbelt use: always Helmet use: Yes Drive intox or ride w/intox medical delivery driver: No Working smoke detector in home: Yes Fire extinguisher in home: No Carbon monox detector in home: Yes Do you feel safe at home: Yes Do you feel safe in your relationship?: Yes Meds Allergies and Home Medications Allergies Allergy/AdvReac Type Severity Reaction Status Date / Time bee venom protein (honey bee) Allergy Severe Anaphylaxsi Verified 12/24/22 08:45 s Home Medications Medication Instructions Recorded Confirmed Type cholecalciferol (vitamin D3) 10 10 mcg PO DAILY 11/22/19 01/03/23 History mcg (400 unit) capsule glucosamine-chondroitin 250 mg-200 1 tab PO QPC 11/22/19 01/03/23 History mg tablet (Osteo Bi-Flex) magnesium gluconate 27 mg 27 mg PO DAILY 11/22/19 01/03/23 History magnesium (500 mg) tablet (Mag-G) turmeric 400 mg capsule 400 mg PO DAILY 11/22/19 01/03/23 History blood-glucose meter #1 ea 02/24/20 01/03/23 Rx lancets #200 ea 02/24/20 01/03/23 Rx blood sugar diagnostic (Blood #100 ea 11/01/21 01/03/23 Rx Glucose Test strips) Amplidata Sport Shake 1 oz PO 3XD Protein supplement 12/24/22 01/03/23 Rx #28.4 oz lisinopril 10 mg tablet 10 mg PO DAILY #90 tabs 12/24/22 01/03/23 Rx lacosamide 100 mg tablet 100 mg PO BID 01/04/23 01/04/23 History escitalopram oxalate 10 mg tablet 10 mg PO DAILY #60 tabs 02/03/23 Rx Exam Narrative Exam Narrative: General: Patient appears chronically ill and has a flattened affect and facies with soft speech. His partner speaks for him mostly. He is alert and oriented at least to person and place. He has no acute distress. HEENT: Flattened affect with masklike facies, eyes with pupils equal react light SPECT, extraocular movement intact and sclera anicteric. Oropharynx with moist mucosa and fair dentition. Neck: Supple without JVD. Lungs: Fair aeration with poor respiratory effort, no focalizing rales or rhonchi. No expiratory wheeze. Back: Not examined with patient's supine. Heart: Regular rate and rhythm with no murmurs gallops appreciated. No gallops or rubs. Abdomen: Obese contour, soft nontender to palpation with no palpable hepatosplenomegaly. Genitalia/rectal: Exam deferred. Extremities: Moderate nonpitting edema of left lower extremity with negative Homans' sign, fair capillary refill. No clubbing or cyanosis. Joints have fair range of motion with patient having passive range of motion. Skin: Normal color, warm and dry with no lesions noted. Back was not examined for pressure points. Neuro: Cranial nerves II through XII gross intact, decreased motor on the left more than right the patient able to move against gravity but not resistance on the left. Slightly increased strength of the right being 3-4 out of 5 better than 2 out of 5 on the left. No tremor. Psych: Flattened affect with depressed mood. No abnormal thought processes. Remote and recent memory appear to be grossly intact with patient being a poor historian and partner mostly speaking for him. Results Imaging Imaging Studies: Exam: CT Head Without Contrast Exam date and time: 02/26/2023 4:45 AM Age: 72 years old Clinical indication: Other: HX of oligodendroglioma, fall TECHNIQUE: Imaging protocol: Computed tomography of the head without contrast. Radiation optimization: All CT scans at this facility use at least one of these dose optimization techniques: automated exposure control; mA and/or kV adjustment per patient size (includes targeted exams where dose is matched to clinical indication); or iterative reconstruction. Other technique: STROKE PROTOCOL was implemented. COMPARISON: MR HEAD W WO CONTRAST 01/17/2023 10:54 AM FINDINGS: Brain:? Stable encephalomalacia and cortical calcifications of the posterior left hemisphere.. No hemorrhage. Unremarkable white matter. No mass effect. Cerebral ventricles: No ventriculomegaly. Paranasal sinuses: Visualized sinuses are unremarkable. No fluid levels. Mastoid air cells: Visualized mastoid air cells are well aerated. Bones/joints: Unremarkable. No acute fracture. Soft tissues: Unremarkable. IMPRESSION: No acute intracranial abnormality. Exam: CTA Chest With Contrast Exam date and time: 02/26/2023 3:51 AM Age: 72 years old Clinical indication: Cough and shortness of breath; Patient HX: Couch, SOB, cancer TECHNIQUE: Imaging protocol: Computed tomographic angiography of the chest with contrast. Exam focused on the arteries. 3D rendering (Not supervised by radiologist): MIP and/or 3D reconstructed images were created by the technologist. Contrast material: OMNIPAQUE 350; Contrast volume: 100 ml; Contrast route: INTRAVENOUS (IV);? COMPARISON: CR XR CHEST 2V PA LATERAL 02/19/2023 1:13 PM FINDINGS: Pulmonary arteries: Moderate bilateral central and peripheral pulmonary emboli. Aorta: Unremarkable. No aortic aneurysm. No aortic dissection. Lungs: Minimal focal infiltrate in the periphery of the left lower lobe, could indicate early infarct in the setting of emboli. Pleural spaces: Unremarkable. No pneumothorax. No pleural effusion. Heart: Unremarkable. No cardiomegaly. No pericardial effusion. Lymph nodes: Unremarkable. No enlarged lymph nodes. Liver: Minimal Lay hepatic ascites. Hepatic steatosis. Bones/joints: Unremarkable. No acute fracture. Soft tissues: Unremarkable. IMPRESSION: 1. ? Moderate bilateral central and peripheral pulmonary emboli. 2. ? Minimal Lay hepatic ascites. 3. ? Minimal focal infiltrate in the periphery of the left lower lobe, could indicate early infarct in the setting of emboli. Labs 02/26/23 06:15 02/26/23 06:15 Labs: Laboratory Results - last 24 hr 02/26/23 02/26/23 02/26/23 03:10 03:10 03:10 WBC RBC Hgb Hct MCV MCH MCHC RDW Plt Count MPV Immature Gran % Neutrophils % Lymphocytes % Monocytes % Eosinophils % Basophils % Nucleated RBC % Absolute Neutrophils Absolute Lymphocytes Absolute Monocytes Absolute Eosinophils Absolute Basophils PT INR APTT VBG pH 7.35 VBG pCO2 45 VBG pO2 51 VBG HCO3 25 VBG Total CO2 23 L VBG O2 Saturation 83 VBG Base Excess -1 VBG Lactate Sodium 133 L Potassium 5.7 H Chloride 100 Carbon Dioxide 24.8 Anion Gap 8.2 BUN 33 H Creatinine 1.0 Est GFR (CKD-EPI 2020) 79.47 Glucose 123 H Calcium 10.6 H Total Bilirubin 1.4 H AST 84 H ALT 24 Alkaline Phosphatase 264 H Troponin I < 50 NT-Pro-B Natriuret Pep 571 H Total Protein 6.7 Albumin 2.9 L COVID-19 Source SARS-CoV-2 (PCR) Influenza Type A (PCR) Influenza Type B (PCR) RSV (PCR) 02/26/23 02/26/23 02/26/23 03:10 03:10 03:23 WBC 6.01 RBC 3.93 L Hgb 13.1 L Hct 38.1 L MCV 97 H MCH 33.3 H MCHC 34.4 RDW 14.5 H Plt Count 119 L MPV 9.7 Immature Gran % 0.5 Neutrophils % 72.3 Lymphocytes % 14.1 Monocytes % 12.1 Eosinophils % 0.7 Basophils % 0.3 Nucleated RBC % 0.0 Absolute Neutrophils 4.34 Absolute Lymphocytes 0.85 L Absolute Monocytes 0.73 Absolute Eosinophils 0.04 Absolute Basophils 0.02 PT INR APTT VBG pH VBG pCO2 VBG pO2 VBG HCO3 VBG Total CO2 VBG O2 Saturation VBG Base Excess VBG Lactate 2.2 H* Sodium Potassium Chloride Carbon Dioxide Anion Gap BUN Creatinine Est GFR (CKD-EPI 2020) Glucose Calcium Total Bilirubin AST ALT Alkaline Phosphatase Troponin I NT-Pro-B Natriuret Pep Total Protein Albumin COVID-19 Source Nasopharynx SARS-CoV-2 (PCR) Negative Influenza Type A (PCR) Negative Influenza Type B (PCR) Negative RSV (PCR) Negative 02/26/23 03:42 WBC RBC Hgb Hct MCV MCH MCHC RDW Plt Count MPV Immature Gran % Neutrophils % Lymphocytes % Monocytes % Eosinophils % Basophils % Nucleated RBC % Absolute Neutrophils Absolute Lymphocytes Absolute Monocytes Absolute Eosinophils Absolute Basophils PT 11.2 H INR 1.1 APTT 27.1 VBG pH VBG pCO2 VBG pO2 VBG HCO3 VBG Total CO2 VBG O2 Saturation VBG Base Excess VBG Lactate Sodium Potassium Chloride Carbon Dioxide Anion Gap BUN Creatinine Est GFR (CKD-EPI 2020) Glucose Calcium Total Bilirubin AST ALT Alkaline Phosphatase Troponin I NT-Pro-B Natriuret Pep Total Protein Albumin COVID-19 Source SARS-CoV-2 (PCR) Influenza Type A (PCR) Influenza Type B (PCR) RSV (PCR) Last Vital Signs Temp 36.9 C 02/26/23 02:26 Pulse 74 02/26/23 02:26 Resp 16 02/26/23 02:32 BP 111/77 02/26/23 02:26 Pulse Ox 97 02/26/23 02:26 Time Spent Time spent with Patient: >75 minutes Time was spent: preparing to see the patient(eg.review tests), obtaining and/or reviewing separately otained hiistory, ordering medications,tests, procedures, referring, communicating with other health rn complex care, indepentently interpreting results and care coordination
[2023-02-26 05:31] LABS: BUN 32 mg/dL (7-18); CREATININE 0.9 mg/dL (0.70-1.30); Calcium 10.6 mg/dL (8.5-10.1); Chloride 100 mmol/L (98-107); Estimated GFR 90.18 (mL/min/1.73m2); Glucose 123 mg/dL (74-106); Potassium 5.1 mmol/L (3.5-5.1); Sodium 132 mmol/L (136-145)
[2023-02-26 06:22] LABS: Lactate 1.3 mmol/L (0.6-1.4)
[2023-02-26 06:24] LABS: HCT 35.3 % (40.0-50.0); HGB 12.4 g/dL (13.5-17.5); MCH 33.4 pg (27.0-33.0); MCHC 35.1 % (32.0-36.0); MCV 95 fL (80-95); MPV 9.7 fL (8.0-11.0); Platelet Count 105 10^3/uL (130-400); RBC 3.71 10^6/uL (4.36-5.78); RDW 14.3 % (11.8-14.1); WBC 6.58 10^3/uL (4.4-10.8)
[2023-02-26 06:35] LABS: Prothrombin Time 11.7 sec (9.3-11.0)
[2023-02-26 06:40] LABS: ALT 26 U/L (16-63); AST 76 U/L (15-37); Albumin 2.8 g/dL (3.4-5.0); Alkaline Phosphatase 249 U/L (46-116); Anion Gap 5.9 mmol/L (3-11); BUN 31 mg/dL (7-18); Bilirubin, Total 1.3 mg/dL (0.2-1.0); CO2 26.1 mmol/L (21.0-32.0); Calcium 10.4 mg/dL (8.5-10.1); Chloride 100 mmol/L (98-107); Estimated GFR 79.47 (mL/min/1.73m2); Glucose 125 mg/dL (74-106); INR 1.1 (0.9-1.1); Potassium 5.1 mmol/L (3.5-5.1); Sodium 132 mmol/L (136-145); Total Protein 6.4 g/dL (6.4-8.2)
[2023-02-26 07:01] LABS: TSH (W/Ref FT4) 3.04 uIU/mL (0.36-3.74); Troponin I < 50 ng/L (<or=60)
--- NOTE | 2023-02-26 08:00 | DI.US_ITS ---
Exam(s) US EXTREMITY VENOUS BI EXAM: US EXTREMITY VENOUS BI CLINICAL HISTORY: Edema left leg compared with bilateral PE. TECHNIQUE: Bilateral lower extremity venous ultrasound performed using grayscale, color-flow, and sp ectral Doppler analysis. COMPARISON: No exams were available for comparison FINDINGS: The right common femoral, femoral and popliteal veins demonstrate normal compressibility, augmentatio n, and color Doppler. The posterior tibial and peroneal veins are patent. The saphenofemoral junctio n is unremarkable. There is no evidence of a Ugarte's cyst. The soft tissues are unremarkable. There is thrombus extending from the common femoral vein through the femoral veins and popliteal vein s into the posterior tibialis veins. The saphenofemoral junction is unremarkable. There is no evide nce of a Ugarte's cyst. The soft tissues are unremarkable. IMPRESSION: 1. No evidence of a right lower extremity DVT. 2. Extensive left lower extremity DVT extending from the common femoral vein into the calf and the po sterior tibialis veins. 3. The findings were discussed with med surg at 1:57 p.m. on 02/26/2023. DATA REPOSITORY:
[2023-02-26] MEDS: Glucosamine/Chondroitin CAP 1 CAP PO ×3 (08:08→17:44)
[2023-02-26] MEDS: Cholecalciferol (Vitamin D3) 400 UNIT TAB PO (08:09)
[2023-02-26] MEDS: Escitalopram 10 MG TAB PO (08:09)
[2023-02-26] MEDS: Lisinopril 10 MG TAB PO (08:09)
[2023-02-26] MEDS: Lacosamide 100 MG TAB PO ×2 (08:09→21:02)
[2023-02-26 08:32] LABS: PTT Activated > 155.0 sec (21.5-31.9)
[2023-02-26 09:07] LABS: Troponin I < 50 ng/L (<or=60)
[2023-02-26] MEDS: Normal Saline 1,000 ML 100 ML IV (10:24)
--- NOTE | 2023-02-26 10:32 | INITIAL_ITS ---
Date of service: 02/26/23 Time of Service: 10:32 Care Management Initial Assmt Initial Assessment REASON FOR HOSPITALIZATION:: Bilateral PE, Oligodendroglioma PREVIOUS FUNCTIONAL STATUS/SOCIAL/FAMILY SUPPORTS:: Matthias lives in [place] with his partner, Filiberto. Matthias retired from a position in [employer] in [place] about 7 years ago. He and Filiberto moved to [place] after custodial. He is independent with ADL's at baseline and does not receive any community services. CURRENT FUNCTIONAL STATUS:: Matthias was sitting up in bed, his family surrounding him. He was eating his lunch, with some difficulty, and support from his sister. Filiberto reported that he was made aware of a Palliative consult tomorrow, which they are looking forward to, as they had an outpatient appointment in about a week. They are interested in new services, as they will benefit from services at home. Filiberto reported that Matthias has been going to outpatient PT, but has had to cancel several appointments because it is too hard for him to get to. Filiberto also asked about having a brain MRI, which is scheduled at [facility]; CM explained that it would have to be directly related to this admission. CM informed the provider of this request. CM will continue to follow. ADVANCE DIRECTIVES:: None on file; Palliative consult requested. Has patient been provided with info about the portal/API?: Yes Did the patient sign up for the portal?: Yes CODE STATUS:: DNR/DNI INSURANCE COVERAGE / FINANCIAL ISSUES:: MCR, BCBS supplement CURRENT HOME/COMMUNITY SERVICES/EQUIPMENT:: no current services or equipment. PRIMARY CARE PHYSICIAN:: Dayron Gusman POTENTIAL DISCHARGE NEEDS:: Evaluations for further needs, follow up appointments. PATIENT/FAMILY EDUCATION NEEDS:: Review discharge instructions and limitations, discussion of self care needs including ask me three and goals of care. ANTICIPATED BARRIERS TO DISCHARGE:: None identified at this time. TRANSPORTATION:: Via private vehicle by his partner. PLAN:: Anticipate Matthias will return home once medically cleared. His partner will drive him home via private vehicle. He will follow up with his PCP and discharge plan of care. CM will continue to follow. 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 (Acute) Loss of consciousness (Acute) Essential hypertension (Chronic) Iron overload (Acute) [place] [facility] [place] Hereditary hemochromatosis (Chronic) [place]20 [facility] [place], phlebotomies to maintain goal of ferritin <100, monthly labs Diabetes mellitus (Chronic) Bronze diabetes (Chronic) Diagnosed 02/23 Family hx of colon cancer (Acute) Encounter for colonoscopy in patient with family history of colon cancer (Acute) Colorectal polyps (Acute) Medical History Asthma HTN (hypertension) Seizure (~2021) onset at time of brain tumor diagnosis, last episode in 2022 Surgical History History of colonoscopy x3 No significant past surgical history Family History Father , late 60's Adenocarcinoma Colon and lung Diabetes Sister , age 50 Ovarian cancer Sister Breast cancer FHx: mental illness maybe Bipolar Seizures FH: hemochromatosis Social History Smoking/Tobacco Use Status: Never Smoking risk assessment performed?: Yes Alcohol Intake: current Alcohol Intake frequency: holidays/special occasions only Details: Social drinking Drug use: Never Substance use type: does not use Adopted: No Caregiver/Support person: Yes (partner) Foster care: No Household members: significant other Housing: house Number of Children: 0 number of grandchildren: 0 Communication Needs: Corrective Lenses Education Level: high school Details: With a couple of post high school grad classes Do you need help understanding health information?: Rarely current occupation: retired Pets and animals: No Sexually active: No Do you think of yourself as: lesbian/damon/homosexual Current gender identity: male What is your relationship status?: living with partner How often do you talk on the phone with friends or family?: three or more times per week How often do you get together with friends or relatives?: once per week Do you belong to any clubs or organized social groups?: no Panel score (0-1 are the most socially isolated patients): 2 What type of physical activity do you participate in: additional Details: Exercise limited due to recent chemo; will start using elliptical machine Frequency: 5-6 times per week Chen/Gnosticism: Gnosticism Special chen needs: No Seatbelt use: always Helmet use: Yes Drive intox or ride w/intox package delivery driver: No Working smoke detector in home: Yes Fire extinguisher in home: No Carbon monox detector in home: Yes Do you feel safe at home: Yes Do you feel safe in your relationship?: Yes
--- NOTE | 2023-02-26 12:11 | W.PM.PROGNOT ---
Date of Service Date of service: 02/26/23 Time of Service: 12:11 Assessment and Plan Assessment and plan (1) Pulmonary embolism: Status: Acute Assessment and plan: fairly immobilized and has left lower extremity DVT with bilateral PE which is quite extensive. continue IV heparinization and convert to oral He is presently on room air without hypoxemia. He is a DNR/DNI. palliative care consult pending (2) Oligodendroglioma: Status: Chronic Assessment and plan: extensive DVT left leg and bilateral PE. Evaluate and treat the patient on hold for chemotherapy and radiation therapy at this time considering palliative care. He is a DNR/DNI. (3) Diabetes mellitus: Status: Chronic Assessment and plan: Glucometer measurements with insulin coverage while hospitalized. 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 (5) HTN (hypertension): Assessment and plan: Continue outpatient medical therapy adjusting as needed. (6) Asthma: Assessment and plan: Continue outpatient inhaler therapy. (7) Seizure: Assessment and plan: Continue outpatient therapy monitoring for recurrence patient is under stress. discussed with DR Castle Subjective Subjective Patient reports: no new complaints, tolerating liquids well, tolerating a regular diet and afebrile; denies shortness of breath Exam Const General: no acute distress, frail appearing and ill appearing chronically Nutritional Appearance: thin Orientation: alert, awake, oriented to person and oriented to place HENCO Head: normal to inspection, normocephalic and atraumatic Mouth: moist mucous membranes abnormal (slightly dry) Chest Chest: normal inspection of the chest Resp Effort & Inspection: normal respiratory effort Auscultation: diminished lung sounds Cardio Rate: regular rate Rhythm: regular rhythm GI Inspection: normal to inspection Palpation: soft Extrem General: edema (lower) Laterality: bilateral Objective Last Vital Signs Temp 35.6 C L 02/26/23 11:15 Pulse 65 02/26/23 11:15 Resp 16 02/26/23 11:15 BP 101/69 02/26/23 11:15 Pulse Ox 97 02/26/23 11:15 Laboratory Results - last 24 hr 02/26/23 02/26/23 02/26/23 03:10 03:10 03:10 WBC RBC Hgb Hct MCV MCH MCHC RDW Plt Count MPV Immature Gran % Neutrophils % Lymphocytes % Monocytes % Eosinophils % Basophils % Nucleated RBC % Absolute Neutrophils Absolute Lymphocytes Absolute Monocytes Absolute Eosinophils Absolute Basophils PT INR APTT VBG pH 7.35 VBG pCO2 45 VBG pO2 51 VBG HCO3 25 VBG Total CO2 23 L VBG O2 Saturation 83 VBG Base Excess -1 VBG Lactate Sodium 133 L Potassium 5.7 H Chloride 100 Carbon Dioxide 24.8 Anion Gap 8.2 BUN 33 H Creatinine 1.0 Est GFR (CKD-EPI 2020) 79.47 Glucose 123 H Calcium 10.6 H Magnesium Total Bilirubin 1.4 H AST 84 H ALT 24 Alkaline Phosphatase 264 H Troponin I < 50 NT-Pro-B Natriuret Pep 571 H Total Protein 6.7 Albumin 2.9 L TSH COVID-19 Source SARS-CoV-2 (PCR) Influenza Type A (PCR) Influenza Type B (PCR) RSV (PCR) 02/26/23 02/26/23 02/26/23 03:10 03:10 03:23 WBC 6.01 RBC 3.93 L Hgb 13.1 L Hct 38.1 L MCV 97 H MCH 33.3 H MCHC 34.4 RDW 14.5 H Plt Count 119 L MPV 9.7 Immature Gran % 0.5 Neutrophils % 72.3 Lymphocytes % 14.1 Monocytes % 12.1 Eosinophils % 0.7 Basophils % 0.3 Nucleated RBC % 0.0 Absolute Neutrophils 4.34 Absolute Lymphocytes 0.85 L Absolute Monocytes 0.73 Absolute Eosinophils 0.04 Absolute Basophils 0.02 PT INR APTT VBG pH VBG pCO2 VBG pO2 VBG HCO3 VBG Total CO2 VBG O2 Saturation VBG Base Excess VBG Lactate 2.2 H* Sodium Potassium Chloride Carbon Dioxide Anion Gap BUN Creatinine Est GFR (CKD-EPI 2020) Glucose Calcium Magnesium Total Bilirubin AST ALT Alkaline Phosphatase Troponin I NT-Pro-B Natriuret Pep Total Protein Albumin TSH COVID-19 Source Nasopharynx SARS-CoV-2 (PCR) Negative Influenza Type A (PCR) Negative Influenza Type B (PCR) Negative RSV (PCR) Negative 02/26/23 02/26/23 02/26/23 03:42 05:15 06:15 WBC RBC Hgb Hct MCV MCH MCHC RDW Plt Count MPV Immature Gran % Neutrophils % Lymphocytes % Monocytes % Eosinophils % Basophils % Nucleated RBC % Absolute Neutrophils Absolute Lymphocytes Absolute Monocytes Absolute Eosinophils Absolute Basophils PT 11.2 H INR 1.1 APTT 27.1 VBG pH VBG pCO2 VBG pO2 VBG HCO3 VBG Total CO2 VBG O2 Saturation VBG Base Excess VBG Lactate Sodium 132 L Potassium 5.1 Chloride 100 Carbon Dioxide 26.0 Anion Gap 6.0 BUN 32 H Creatinine 0.9 Est GFR (CKD-EPI 2020) 90.18 Glucose 123 H Calcium 10.6 H Magnesium Total Bilirubin AST ALT Alkaline Phosphatase Troponin I < 50 NT-Pro-B Natriuret Pep Total Protein Albumin TSH 3.04 COVID-19 Source SARS-CoV-2 (PCR) Influenza Type A (PCR) Influenza Type B (PCR) RSV (PCR) 02/26/23 02/26/23 02/26/23 06:15 06:15 06:15 WBC 6.58 RBC 3.71 L Hgb 12.4 L Hct 35.3 L MCV 95 MCH 33.4 H MCHC 35.1 RDW 14.3 H Plt Count 105 L MPV 9.7 Immature Gran % Neutrophils % Lymphocytes % Monocytes % Eosinophils % Basophils % Nucleated RBC % Absolute Neutrophils Absolute Lymphocytes Absolute Monocytes Absolute Eosinophils Absolute Basophils PT 11.7 H INR 1.1 APTT VBG pH VBG pCO2 VBG pO2 VBG HCO3 VBG Total CO2 VBG O2 Saturation VBG Base Excess VBG Lactate Sodium 132 L Potassium 5.1 Chloride 100 Carbon Dioxide 26.1 Anion Gap 5.9 BUN 31 H Creatinine 1.0 Est GFR (CKD-EPI 2020) 79.47 Glucose 125 H Calcium 10.4 H Magnesium 2.0 Total Bilirubin 1.3 H AST 76 H ALT 26 Alkaline Phosphatase 249 H Troponin I NT-Pro-B Natriuret Pep Total Protein 6.4 Albumin 2.8 L TSH COVID-19 Source SARS-CoV-2 (PCR) Influenza Type A (PCR) Influenza Type B (PCR) RSV (PCR) 02/26/23 02/26/23 02/26/23 06:15 06:15 08:40 WBC RBC Hgb Hct MCV MCH MCHC RDW Plt Count MPV Immature Gran % Neutrophils % Lymphocytes % Monocytes % Eosinophils % Basophils % Nucleated RBC % Absolute Neutrophils Absolute Lymphocytes Absolute Monocytes Absolute Eosinophils Absolute Basophils PT INR APTT > 155.0 H* VBG pH VBG pCO2 VBG pO2 VBG HCO3 VBG Total CO2 VBG O2 Saturation VBG Base Excess VBG Lactate 1.3 Sodium Potassium Chloride Carbon Dioxide Anion Gap BUN Creatinine Est GFR (CKD-EPI 2020) Glucose Calcium Magnesium Total Bilirubin AST ALT Alkaline Phosphatase Troponin I < 50 NT-Pro-B Natriuret Pep Total Protein Albumin TSH COVID-19 Source SARS-CoV-2 (PCR) Influenza Type A (PCR) Influenza Type B (PCR) RSV (PCR) Time Spent with Patient Time Spent with Patient: 25-34 minutes Time was spent: preparing to see the patient(eg.review tests), ordering medications,tests, procedures, indepentently interpreting results and counseling the patient
[2023-02-26] MEDS: Magnesium Gluconate 500 MG TAB PO (13:23)
[2023-02-26] MEDS: Insulin Aspart 300 UNITS/3 ML PEN SC ×2 (13:34→22:02)
[2023-02-26 16:46] LABS: Bilirubin Negative (Negative); Blood Negative (Negative); Clarity Clear (Clear); Glucose Negative (Negative); Ketones Negative (Negative); Leukocyte Esterase Negative (Negative); Nitrite Negative (Negative); Specific Gravity 1.015 (1.005-1.025); Urobilinogen 0.2 mg/dL (Up to 0.2)
[2023-02-26 17:38] LABS: PTT Activated 86.1 sec (21.5-31.9)
--- NOTE | 2023-02-26 18:32 | PCNE_ITS ---
Date of service: 02/27/23 Time of Service: 08:52 History of Present Illness Narrative: Mr Juarez is a 72 yo gentleman from [place], [place] who was admitted to [facility] yesterday with diagnosis of diffuse pulmonary emboli after presenting to the ED with 3 weeks of worsening dyspnea. 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 Presented with confusion, ataxia and right leg weakness. Found to have left parietal occipital mass. Not resected. Received radiation oncology spring 2021. Followed at [facility] neuro- oncology clinic. Over the last two months Filiberto notes that Matthias has been losing strength, ability to walk. In November was able to walk with cane only. Went from cane to walk to transport chair during the last 5 weeks ( very fast declin e). Matthias attributes this to R leg weakness. Needs help with all transfers. -Tumor had initially shrunk 10% with initial course of radiation and chemotherapy. Then was reportedly stable . [facility] There was on suspicious area on R side (tumor is on left). Plan was to followup with another MRI. Filiberto Last spoke with Dr. Pereira this weekend and she recommended another MRI. -He had a short course of dexamethasone in the hospital early January when he had pneumonia and then another 7-day course as an outpatient started 01/30/2023 2 mg twice daily by his PCP. -Last seizure over a year ago. ++Weight loss over 60 pounds over the last 2 years. -Saw [place] oncological pinsetter mechanic helper last week for the first time, prescribed supplements and Keto diet recommended. Hemochromatosis: Diagnosed approximately 5 years ago. Onset phlebotomy 2019. Receiving phlebotomy at [facility] with goal of ferritin less than 100. Was needing phlebotomies only every 3 to 6 months. Filiberto says that he is due for phlebotomy and is worried about getting him back to the hospital for outpatient phlebotomy due to his lack of ambulation. On the other hand Filiberto does admit that he gets very weak after phlebotomy. Care Team: Primary Care physician: Dr. Gusman Hematology (hemochromatosis): Dr. De La Fuente [facility], last seen 05/2022 Radiation oncology: Dr. Pimentel Neuro-oncology: Dr. Pereira at [facility] (notes not available) Social HX: Patient lives in [facility] with partner Filiberto. 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 Friends have been helping with visits, social support, transportation during radiation, built handicapped ramps the last few months, errands. WIth partner Filiberto for 45+ years. Hobbies: lawn care, landscaping, pond (feeds fish), used to snowmobile, watches TV, spend time with friends. Impression of currents health status: Marked decline in functional status over the last month. What bothers you the most:NOt being able to walk. What worries you the most: LOss of independence, that he will no longer be able to walk. Goals:TO regain his strength, ability to walk. If not longer able to walk, would want to get out of the house, go places and visit. Current information preferences: Needs to hear all. Function: Ambulation: Unable to ambulate or transfer self at this time. ADLs: Can feed himself. Still has bowel and bladder control but needs help with transferring to toilet/commode. Cannot dress himself. iADLs: Totally dependent at this point Hearing:Fine Vision:Fine Cognition: Occasional problem remembering names. Oriented to year, month, place today. Palliative Performance Scale % Ambulation Activity and Evidence of Disease Self Care Intake Level of Consciousness 100 Full Normal activity, no evidence of disease Full Normal Full 90 Full Normal activity, some evidence of disease Full Normal Full 80 Full Normal activity with effort, some evidence of disease Full Normal or reduced Full 70 Reduced Unable to do normal work, some evidence of disease Full Normal or reduced Full 60 Reduced Unable to do hobby or some housework, significant disease Occasional assist necessary Normal or reduced Full or confusion 50 Mainly sit/lie Unable to do any work, extensive disease Considerable assistance required Normal or reduced Full or confusion 40 Mainly in bed Unable to do any work, extensive disease Mainly assistance Normal or reduced Full, drowsy, or confusion 30 Totally bed bound Unable to do any work, extensive disease Total care Reduced Full, drowsy, or confusion 20 Totally bed bound Unable to do any work, extensive disease Total care Minimal sips Full, drowsy, or confusion 10 Totally bed bound Unable to do any work, extensive disease Total care Mouth care only Drowsy or coma 0 - - - - Patient Score: 30-40 Coping: Spiritual history:Not methodist, but does pray, raised RC. Palliative review of systems: Pain: No Dyspnea:None, cough is better and breathing is better GI symptoms: None Appetite: Yes Depression: THis is a depressing situation, to lose ability to walk. Dr. Gusman stared him on escitalopram and stopped after three days, made him into a zombie. Does not want to retry. Anxiety: None Emotional Distress: Spiritual/Existential Distress: Labs: 02/26/2023 labs Cr: 1.0 Liver panel:Chronic slight elevation AST with normal ALT felt to be secondary to hemochromatosis.; Alkaline phosphatase 249 Albumin: 2.8?2.9 (albumin 3.4 on January 03, 2023) CBC: Hemoglobin 12.4.(Last ferritin 02/19/2023: 499) Radiology: Venous ultrasound: Extensive left lower leg DVT, normal right Chest CTA: Bilateral pulmonary emboli. Lytic lesion right first rib and right 10th rib. Focal infiltrate left lower lobe, cannot rule out early infarct CT head: No acute process stable encephalomalacia left posterior hemisphere. I see no MRI having been done at [facility]. Advanced Care Planning: Advanced Directive: Just completed last month. Health Care Agent: Partner Filiberto Nguyen, alternate is sister Leslie english ([place], [place]) COLST: DNR/DNI, no feeding tube. Transer and treat. COLST completed today Limitations: Assessment and Plan Assessment and plan (1) Palliative care encounter: Status: Acute Assessment and plan: The patient is a 72-year-old gentleman diagnosed with oligodendroglioma 2 years ago, not resectable at that time. Treatment with radiation and chemotherapy directed at control of lesion and palliation. Now with 1 to 2 months precipitous decline in function, most notably ability to ambulate, down to palliative performance scale 30?40, continued weight loss, first episode of widespread pulmonary embolism, and 2 lytic rib lesions noted during hospital ization. Extracranial metastasis from oligodendroglioma is quite rare but has been described. Another possibility is a second malignancy causing the PE and lytic lesions. However his decline in functioning is likely from intracranial process. Discussed this change in status with patient and partner. Prognosis is definitely changed and outlook likely poor. We spent time exploring goals of care, recently completed advanced directive. The next few days will be spent with getting some additional data to help with prognostication including brain MRI, basic work-up to rule out second, raisa bui (PSA, perhaps abdominal imaging). Presented palliative approach versus consideration of hospice. Filiberto had many questions and these were answered. (2) Advanced care planning/counseling discussion: Status: Acute Assessment and plan: Reviewed patient's request to be DNR/DNI and no feeding tube. He confirmed that this is what he would like and a COLST was completed. After consideration of options, patient and family would like to proceed with further evaluation. They do not want to talk with hospice at the moment. However, they are aware that can they can request hospice consultation while they are in the hospital. 16 to 30 minutes spent today on Advance Care Planning. Patient and family participated voluntarily. Advance care planning may include (not limited to) e xplanation and discussion of advance directives, choosing and appointing healthcare agents, alternatives to various ACP tools, discussion of (and if indicated, completion of) COLST form, discussion of patient's values and overall goals for treatment, palliative and disease directive care options, ways to avoid hospital readmission including hospice discussions, care preferences should the patient's several other adverse health events.See today's palliative care note for additional information. (3) Pulmonary embolism: Status: Acute Assessment and plan: Patient came in quite symptomatic with his pulmonary embolism with cough and difficulty breathing. He did have a fall a few weeks ago when he tried to get off the toilet without assistance. Now that he is nonambulatory, as long as he has someone with him, I think the benefits to reducing his PE symptoms outweigh risks. Based on this, would continue anticoagulation for now. 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 He cries when he discusses this. He still has moments during the day when he feels happy and enjoys his life. His PCP started him on trial of escitalopram at 10 mg daily about 4 weeks ago. After 3 days he felt like a zombie . He does not want to resume and at this time does not want an antidepressant. Overall, I think the risks of side effects from antidepressants probably outweigh benefits at this point. Once things settle down in a week or 2, this can be reevaluated. (5) Unintentional weight loss of more than 7.5% body weight within 3 months: Status: Acute Assessment and plan: Advised patient and partner to see eating and drinking as pleasurable activities. Patient is vexed by the fact that his sense of taste was permanently altered by chemotherapy, very bothersome to him. Recently saw oncology pinsetter mechanic helper in [facility]. They recommended trial of keto diet. I strongly advised against doing that at this time. Encouraged Douglas to try things that tasted good, usually wet and cold things. (6) Oligodendroglioma of brain: Status: Acute Assessment and plan: Rapid decline in functioning is suggestive of progression of tumor. Apparently imaging is difficult to interpret given previous treatment. If there has been tumor growth, I suspect the most that will be offered is palliative radiation ( he previously saw Dr. Parsons at [facility] and had radiation therapy here in [facility]) recommend:R-MRI of brain. Not sure where his recent MRIs are (Filiberto says they were done here but perhaps they were done at [facility]). [facility] MRI will need to be reviewed by neuro oncologist at [facility]. -Suggest starting steroids to see if we can reduce edema and improve some functioning: Dexamethasone 2 mg twice daily -Suggest phone consultation with neuro oncologist. (7) Hereditary hemochromatosis: Status: Chronic Assessment and plan: Filiberto is concerned that he is due for phlebotomy. Last ferritin was in the 400s, with goal under 100. However I see that hemoglobin has decreased during hospitalization. He also gets weak after phlebotomy. Since he is not directly symptomatic from this, suggest putting this off until better sense of what is causing neurological weakness, and then better able to prioritize. PFSH All Active Problems (Updated 02/27/23 @ 10:15 by Dedra Coffey MD) Oligodendroglioma of brain (Acute) Advanced care planning/counseling discussion (Acute) Palliative care encounter (Acute) Pulmonary embolism (Acute) Breath shortness (Acute) Depressive disorder due to separate medical condition (Chronic) Unintentional weight loss of more than 7.5% body weight within 3 months (Acute) Hyperbilirubinemia (Acute) Altered taste (Acute) Oligodendroglioma (Chronic 07/02/21) Grade 2 Glioma of brain (Acute) Loss of consciousness (Acute) Essential hypertension (Chronic) Iron overload (Acute) 05/22/20 [facility] Hematology Hereditary hemochromatosis (Chronic) 05/22/20 [facility] Hematology, phlebotomies to maintain goal of ferritin <100, monthly labs Diabetes mellitus (Chronic) Bronze diabetes (Chronic) Diagnosed 02/23 Family hx of colon cancer (Acute) Encounter for colonoscopy in patient with family history of colon cancer (Acute) Colorectal polyps (Acute) Medical History Asthma HTN (hypertension) Seizure (~2021) onset at time of brain tumor diagnosis, last episode in 2022 Surgical History History of colonoscopy x3 No significant past surgical history Family History Father , late 60's Adenocarcinoma Colon and lung Diabetes Sister , age 50 Ovarian cancer Sister Breast cancer FHx: mental illness maybe Bipolar Seizures FH: hemochromatosis Social History Smoking/Tobacco Use Status: Never Smoking risk assessment performed?: Yes Alcohol Intake: current Alcohol Intake frequency: holidays/special occasions only Details: Social drinking Drug use: Never Substance use type: does not use Adopted: No Caregiver/Support person: Yes (partner) Foster care: No Household members: significant other Housing: house Number of Children: 0 number of grandchildren: 0 Communication Needs: Corrective Lenses Education Level: high school Details: With a couple of post high school grad classes Do you need help understanding health information?: Rarely current occupation: retired Pets and animals: No Sexually active: No Do you think of yourself as: lesbian/damon/homosexual Current gender identity: male What is your relationship status?: living with partner How often do you talk on the phone with friends or family?: three or more times per week How often do you get together with friends or relatives?: once per week Do you belong to any clubs or organized social groups?: no Panel score (0-1 are the most socially isolated patients): 2 What type of physical activity do you participate in: additional Details: Exercise limited due to recent chemo; will start using elliptical machine Frequency: 5-6 times per week Chen/Hinduism: Yazdanism Special chen needs: No Seatbelt use: always Helmet use: Yes Drive intox or ride w/intox van driver: No Working smoke detector in home: Yes Fire extinguisher in home: No Carbon monox detector in home: Yes Do you feel safe at home: Yes Do you feel safe in your relationship?: Yes Exam Narrative Exam Narrative: Thin pale gentleman sitting up in bed. 4 cm diameter fading ecchymosis right presybeterian. He moves and speaks very slowly but is appropriate and does follow instructions. Formal neurological testing not done, but is very slow to shake hands with weak national account director (4+/5) no cough, no dyspnea. Results Last Vital Signs Temp 36.4 C L 02/26/23 15:23 Pulse 67 02/26/23 15:24 Resp 16 02/26/23 15:23 BP 94/65 L 02/26/23 15:23 Pulse Ox 97 02/26/23 15:23 Labs 02/26/23 06:15 02/26/23 06:15 Labs: Laboratory Results - last 24 hr 02/26/23 02/26/23 02/26/23 03:10 03:10 03:10 WBC RBC Hgb Hct MCV MCH MCHC RDW Plt Count MPV Immature Gran % Neutrophils % Lymphocytes % Monocytes % Eosinophils % Basophils % Nucleated RBC % Absolute Neutrophils Absolute Lymphocytes Absolute Monocytes Absolute Eosinophils Absolute Basophils PT INR APTT VBG pH 7.35 VBG pCO2 45 VBG pO2 51 VBG HCO3 25 VBG Total CO2 23 L VBG O2 Saturation 83 VBG Base Excess -1 VBG Lactate Sodium 133 L Potassium 5.7 H Chloride 100 Carbon Dioxide 24.8 Anion Gap 8.2 BUN 33 H Creatinine 1.0 Est GFR (CKD-EPI 2020) 79.47 Glucose 123 H Calcium 10.6 H Magnesium Total Bilirubin 1.4 H AST 84 H ALT 24 Alkaline Phosphatase 264 H Troponin I < 50 NT-Pro-B Natriuret Pep 571 H Total Protein 6.7 Albumin 2.9 L TSH Urine Color Urine Clarity Urine pH Ur Specific [place] Urine Protein Urine Ketones Urine Blood Urine Nitrite Urine Bilirubin Urine Urobilinogen Ur Leukocyte Esterase Urine Glucose COVID-19 Source SARS-CoV-2 (PCR) Influenza Type A (PCR) Influenza Type B (PCR) RSV (PCR) 02/26/23 02/26/23 02/26/23 03:10 03:10 03:23 WBC 6.01 RBC 3.93 L Hgb 13.1 L Hct 38.1 L MCV 97 H MCH 33.3 H MCHC 34.4 RDW 14.5 H Plt Count 119 L MPV 9.7 Immature Gran % 0.5 Neutrophils % 72.3 Lymphocytes % 14.1 Monocytes % 12.1 Eosinophils % 0.7 Basophils % 0.3 Nucleated RBC % 0.0 Absolute Neutrophils 4.34 Absolute Lymphocytes 0.85 L Absolute Monocytes 0.73 Absolute Eosinophils 0.04 Absolute Basophils 0.02 PT INR APTT VBG pH VBG pCO2 VBG pO2 VBG HCO3 VBG Total CO2 VBG O2 Saturation VBG Base Excess VBG Lactate 2.2 H* Sodium Potassium Chloride Carbon Dioxide Anion Gap BUN Creatinine Est GFR (CKD-EPI 2020) Glucose Calcium Magnesium Total Bilirubin AST ALT Alkaline Phosphatase Troponin I NT-Pro-B Natriuret Pep Total Protein Albumin TSH Urine Color Urine Clarity Urine pH Ur Specific [place] Urine Protein Urine Ketones Urine Blood Urine Nitrite Urine Bilirubin Urine Urobilinogen Ur Leukocyte Esterase Urine Glucose COVID-19 Source Nasopharynx SARS-CoV-2 (PCR) Negative Influenza Type A (PCR) Negative Influenza Type B (PCR) Negative RSV (PCR) Negative 02/26/23 02/26/23 02/26/23 03:42 05:15 06:15 WBC RBC Hgb Hct MCV MCH MCHC RDW Plt Count MPV Immature Gran % Neutrophils % Lymphocytes % Monocytes % Eosinophils % Basophils % Nucleated RBC % Absolute Neutrophils Absolute Lymphocytes Absolute Monocytes Absolute Eosinophils Absolute Basophils PT 11.2 H INR 1.1 APTT 27.1 VBG pH VBG pCO2 VBG pO2 VBG HCO3 VBG Total CO2 VBG O2 Saturation VBG Base Excess VBG Lactate Sodium 132 L Potassium 5.1 Chloride 100 Carbon Dioxide 26.0 Anion Gap 6.0 BUN 32 H Creatinine 0.9 Est GFR (CKD-EPI 2020) 90.18 Glucose 123 H Calcium 10.6 H Magnesium Total Bilirubin AST ALT Alkaline Phosphatase Troponin I < 50 NT-Pro-B Natriuret Pep Total Protein Albumin TSH 3.04 Urine Color Urine Clarity Urine pH Ur Specific [place] Urine Protein Urine Ketones Urine Blood Urine Nitrite Urine Bilirubin Urine Urobilinogen Ur Leukocyte Esterase Urine Glucose COVID-19 Source SARS-CoV-2 (PCR) Influenza Type A (PCR) Influenza Type B (PCR) RSV (PCR) 02/26/23 02/26/23 02/26/23 06:15 06:15 06:15 WBC 6.58 RBC 3.71 L Hgb 12.4 L Hct 35.3 L MCV 95 MCH 33.4 H MCHC 35.1 RDW 14.3 H Plt Count 105 L MPV 9.7 Immature Gran % Neutrophils % Lymphocytes % Monocytes % Eosinophils % Basophils % Nucleated RBC % Absolute Neutrophils Absolute Lymphocytes Absolute Monocytes Absolute Eosinophils Absolute Basophils PT 11.7 H INR 1.1 APTT VBG pH VBG pCO2 VBG pO2 VBG HCO3 VBG Total CO2 VBG O2 Saturation VBG Base Excess VBG Lactate Sodium 132 L Potassium 5.1 Chloride 100 Carbon Dioxide 26.1 Anion Gap 5.9 BUN 31 H Creatinine 1.0 Est GFR (CKD-EPI 2020) 79.47 Glucose 125 H Calcium 10.4 H Magnesium 2.0 Total Bilirubin 1.3 H AST 76 H ALT 26 Alkaline Phosphatase 249 H Troponin I NT-Pro-B Natriuret Pep Total Protein 6.4 Albumin 2.8 L TSH Urine Color Urine Clarity Urine pH Ur Specific [place] Urine Protein Urine Ketones Urine Blood Urine Nitrite Urine Bilirubin Urine Urobilinogen Ur Leukocyte Esterase Urine Glucose COVID-19 Source SARS-CoV-2 (PCR) Influenza Type A (PCR) Influenza Type B (PCR) RSV (PCR) 02/26/23 02/26/23 02/26/23 06:15 06:15 08:40 WBC RBC Hgb Hct MCV MCH MCHC RDW Plt Count MPV Immature Gran % Neutrophils % Lymphocytes % Monocytes % Eosinophils % Basophils % Nucleated RBC % Absolute Neutrophils Absolute Lymphocytes Absolute Monocytes Absolute Eosinophils Absolute Basophils PT INR APTT > 155.0 H* VBG pH VBG pCO2 VBG pO2 VBG HCO3 VBG Total CO2 VBG O2 Saturation VBG Base Excess VBG Lactate 1.3 Sodium Potassium Chloride Carbon Dioxide Anion Gap BUN Creatinine Est GFR (CKD-EPI 2020) Glucose Calcium Magnesium Total Bilirubin AST ALT Alkaline Phosphatase Troponin I < 50 NT-Pro-B Natriuret Pep Total Protein Albumin TSH Urine Color Urine Clarity Urine pH Ur Specific [place] Urine Protein Urine Ketones Urine Blood Urine Nitrite Urine Bilirubin Urine Urobilinogen Ur Leukocyte Esterase Urine Glucose COVID-19 Source SARS-CoV-2 (PCR) Influenza Type A (PCR) Influenza Type B (PCR) RSV (PCR) 02/26/23 02/26/23 15:00 17:12 WBC RBC Hgb Hct MCV MCH MCHC RDW Plt Count MPV Immature Gran % Neutrophils % Lymphocytes % Monocytes % Eosinophils % Basophils % Nucleated RBC % Absolute Neutrophils Absolute Lymphocytes Absolute Monocytes Absolute Eosinophils Absolute Basophils PT INR APTT 86.1 H* VBG pH VBG pCO2 VBG pO2 VBG HCO3 VBG Total CO2 VBG O2 Saturation VBG Base Excess VBG Lactate Sodium Potassium Chloride Carbon Dioxide Anion Gap BUN Creatinine Est GFR (CKD-EPI 2020) Glucose Calcium Magnesium Total Bilirubin AST ALT Alkaline Phosphatase Troponin I NT-Pro-B Natriuret Pep Total Protein Albumin TSH Urine Color Yellow Urine Clarity Clear Urine pH 5.0 Ur Specific [place] 1.015 Urine Protein Negative Urine Ketones Negative Urine Blood Negative Urine Nitrite Negative Urine Bilirubin Negative Urine Urobilinogen 0.2 Ur Leukocyte Esterase Negative Urine Glucose Negative COVID-19 Source SARS-CoV-2 (PCR) Influenza Type A (PCR) Influenza Type B (PCR) RSV (PCR)
[2023-02-26 23:42] LABS: PTT Activated 67.5 sec (21.5-31.9)
[2023-02-27] VITALS (8 sets, daily range): BP systolic 100–110; BP diastolic 66–71; PULSE 59–68; RESP 12–18; TEMP 35–36.9; O2SAT 95–97
--- NOTE | 2023-02-27 | DI.MRI_ITS ---
Exam(s) MR BRAIN WO/W EXAM: MR BRAIN WO/W CLINICAL HISTORY: oligodendroglioma TECHNIQUE: Multiplanar multisequence MRI of the brain was performed. Both noninfused and contrast i nfused sequences were performed. IV Contrast injected was 15 cc Dotarem. COMPARISON: MR MR HEAD W WO CONTRAST from 01/17/[address] HEAD WO from 02/26/2023 FINDINGS: CEREBRAL PARENCHYMA: Again noted are postsurgical/post biopsy changes in the posterior left parietal lobe. There is very little if any significant change in the left parietal lobe mass region. Amount of ac onal signal abnormality and mild restricted diffusion appears stable. The amount of regional T2/FLAIR bright signal abnormality appears stable. The amount of regional enhancement appears relatively stable, allowing for differences in technique. Noncontrast T1 hyperintensity susceptibility weighted imaging reveals gyral blood products in this ar ea which are most probably related to the prior procedure. There are no new enhancing lesions elsewhere in the brain. PITUITARY GLAND: No mass nor parasellar abnormality. No obvious abnormality in the cavernous sinuses. FLOW VOIDS: The expected flow void are noted. No evidence of obvious aneurysm nor obvious vascular ma lformation. PARANASAL SINUSES: The visualized paranasal sinuses appear unremarkable. Mastoid air cells are clear. ORBITS: No obvious abnormal findings. IMPRESSION: Minimal if any significant change when compared to the prior outside MRI scan of 01/17/2023. DATA REPOSITORY:
--- NOTE | 2023-02-27 05:37 | NUR.NOTE ---
Nursing Note: RN reports pt coughing with liquids, difficulty swallowing medications, even after crushing in applesauce, prolonged coughing after oral intake and concerns for aspiration. Pt made NPO and speech consult requested per protocol. Notified provider via Webex.
[2023-02-27 06:05] LABS: PTT Activated 73.6 sec (21.5-31.9)
[2023-02-27] MEDS: Lacosamide 100 MG TAB PO ×2 (08:31→20:43)
--- NOTE | 2023-02-27 09:02 | CMPROGNOTE_ITS ---
Date of service: 02/27/23 Time of Service: 09:02 Care Management Progress Note Progress Note Text Progress Note Text: S/O: Matthias was sleeping when CM attempted to visit, and did not wake him. CM met with Filiberto, who stated that they had a great visit with palliative care, and an MRI was ordered and completed this morning. He is scheduled for an echo as well. Per palliative, Matthias's weakness has greatly increased over the last couple of weeks. CM will continue to follow. A: Matthias is a 72 year old male admitted on 02/26/23 with bilateral PE, oligodendroglioma. P: Anticipate Matthias will return home once medically cleared. He will benefit from HH RN, PT, OT, JUKEBOX COIN COLLECTOR. Palliative will follow him outpatient. His partner, Filiberto will drive him home via private vehicle. He will follow up with his PCP and discharge plan of care. CM will continue to follow.
[2023-02-27] MEDS: Gadoterate meglumine 20 ML SYRINGE IVP (11:40)
[2023-02-27] MEDS: Normal Saline Flush 10 ML SYR IVP (11:40)
[2023-02-27] MEDS: Glucosamine/Chondroitin CAP 1 CAP PO ×2 (12:27→16:43)
[2023-02-27] MEDS: Dexamethasone 4 MG TAB 2 MG PO ×2 (12:28→20:44)
[2023-02-27 12:29] LABS: Lab Add On Test DONE
[2023-02-27] MEDS: Insulin Aspart 300 UNITS/3 ML PEN SC ×2 (12:39→22:01)
--- NOTE | 2023-02-27 14:05 | W.PM.PROGNOT ---
Date of Service Date of service: 02/27/23 Time of Service: 14:06 Assessment and Plan Assessment and plan (1) Pulmonary embolism: Status: Acute Assessment and plan: fairly immobilized and has left lower extremity DVT with bilateral PE which is quite extensive. continue IV heparinization and convert to oral He is presently on room air without hypoxemia. He is a DNR/DNI. palliative care consult pending (2) Oligodendroglioma: Status: Chronic Assessment and plan: extensive DVT left leg and bilateral PE. Evaluate and treat the patient on hold for chemotherapy and radiation therapy at this time considering palliative care. He is a DNR/DNI. MRI pending for today there was evidence of bony mets to ribs on CT scan. (3) Diabetes mellitus: Status: Chronic Assessment and plan: Glucometer measurements with insulin coverage while hospitalized. 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 (5) HTN (hypertension): Assessment and plan: Continue outpatient medical therapy adjusting as needed. (6) Asthma: Assessment and plan: Continue outpatient inhaler therapy. (7) Seizure: Assessment and plan: Continue outpatient therapy monitoring for recurrence patient is under stress. discussed with DR Castle Subjective Subjective Patient reports: no new complaints, tolerating liquids well and afebrile; denies tolerating a regular diet (difficulty with pills overnight, changed to bite size and soft) Exam Const General: no acute distress, frail appearing and ill appearing chronically Nutritional Appearance: thin Orientation: alert, awake, oriented to person and oriented to place HENKY Head: normal to inspection and normocephalic Mouth: moist mucous membranes abnormal (slightly dry) Chest Chest: normal inspection of the chest Resp Effort & Inspection: normal respiratory effort Auscultation: diminished lung sounds Cardio Rate: regular rate Rhythm: regular rhythm GI Inspection: normal to inspection Palpation: soft Extrem General: edema (lower) Laterality: bilateral Objective Last Vital Signs Temp 36.6 C 02/27/23 12:00 Pulse 67 02/27/23 12:00 Resp 12 02/27/23 12:00 BP 105/71 02/27/23 12:00 Pulse Ox 97 02/27/23 12:00 Laboratory Results - last 24 hr 02/26/23 02/26/23 02/26/23 15:00 17:12 23:23 APTT 86.1 H* 67.5 H Urine Color Yellow Urine Clarity Clear Urine pH 5.0 Ur Specific Mobile 1.015 Urine Protein Negative Urine Ketones Negative Urine Blood Negative Urine Nitrite Negative Urine Bilirubin Negative Urine Urobilinogen 0.2 Ur Leukocyte Esterase Negative Urine Glucose Negative Add-On Test Request 02/27/23 02/27/23 05:36 12:28 APTT 73.6 H Urine Color Urine Clarity Urine pH Ur Specific Mobile Urine Protein Urine Ketones Urine Blood Urine Nitrite Urine Bilirubin Urine Urobilinogen Ur Leukocyte Esterase Urine Glucose Add-On Test Request DONE Time Spent with Patient Time Spent with Patient: 25-34 minutes Time was spent: preparing to see the patient(eg.review tests), obtaining and/or reviewing separately otained hiistory, ordering medications,tests, procedures and referring, communicating with other health housekeeper caregiver
--- NOTE | 2023-02-27 15:20 | NUR.NOTE ---
Nursing Note: Seizure pads placed on bed per MD order. No seizure activity per pt and SI since 2020.
[2023-02-27] MEDS: Normal Saline 1,000 ML 100 ML IV (16:36)
[2023-02-27] MEDS: Melatonin 3 MG TAB PO (22:06)
[2023-02-28] VITALS (9 sets, daily range): BP systolic 95–139; BP diastolic 65–83; PULSE 49–69; RESP 16; TEMP 35.6–36.9; O2SAT 95–98
[2023-02-28] MEDS: Heparin in 0.45% NaCl 25,000 UNIT/250 ML BAG 9.5 UNIT IV (02:58)
[2023-02-28] MEDS: Normal Saline 1,000 ML 100 ML IV (02:58)
[2023-02-28 07:43] LABS: PTT Activated 82.2 sec (21.5-31.9)
[2023-02-28] MEDS: Cholecalciferol (Vitamin D3) 400 UNIT TAB PO (09:00)
[2023-02-28] MEDS: Dexamethasone 4 MG TAB 2 MG PO ×2 (09:02→20:27)
[2023-02-28] MEDS: Magnesium Gluconate 500 MG TAB PO (09:02)
[2023-02-28] MEDS: Glucosamine/Chondroitin CAP 1 CAP PO ×3 (09:03→17:15)
[2023-02-28] MEDS: Lacosamide 100 MG TAB PO ×2 (09:03→20:26)
[2023-02-28] MEDS: Lisinopril 10 MG TAB PO (09:04)
[2023-02-28] MEDS: Insulin Aspart 300 UNITS/3 ML PEN SC ×2 (11:58→17:15)
[2023-02-28] MEDS: Apixaban 5 MG TAB PO (12:23)
--- NOTE | 2023-02-28 14:28 | W.PM.PROGNOT ---
Date of Service Date of service: 02/28/23 Time of Service: 14:28 Assessment and Plan Assessment and plan (1) Pulmonary embolism: Status: Acute Assessment and plan: fairly immobilized and has left lower extremity DVT with bilateral PE which is quite extensive. converted to oral, will go with xarelto per insurance He is presently on room air without hypoxemia. He is a DNR/DNI. palliative care following, anticipate hospice consult as well (2) Oligodendroglioma: Status: Chronic Assessment and plan: extensive DVT left leg and bilateral PE. Evaluate and treat the patient on hold for chemotherapy and radiation therapy at this time considering palliative care. He is a DNR/DNI. MRI brain with no changes. there was evidence of bony mets to ribs on CT scan, will need further outpatient workup. PSA pending, consider CT abd/pelvis (3) Diabetes mellitus: Status: Chronic Assessment and plan: Glucometer measurements with insulin coverage while hospitalized. 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 (5) HTN (hypertension): Assessment and plan: Continue outpatient medical therapy adjusting as needed. (6) Asthma: Assessment and plan: Continue outpatient inhaler therapy. (7) Seizure: Assessment and plan: stable Continue outpatient therapy and monitoring discussed with DR Mora Subjective Subjective Patient reports: tolerating liquids well and afebrile; denies shortness of breath Interval history since last seen: needs to be fed, max assist of 2 with steady lift to get out of bed Exam Const General: no acute distress, frail appearing and ill appearing chronically Nutritional Appearance: thin Orientation: alert, awake, oriented to person and oriented to place [facility] Head: normal to inspection and normocephalic Mouth: moist mucous membranes abnormal (slightly dry) Chest Chest: normal inspection of the chest Resp Effort & Inspection: normal respiratory effort Auscultation: diminished lung sounds Cardio Rate: regular rate Rhythm: regular rhythm GI Inspection: normal to inspection Palpation: soft Neuro General: unable to assess gait Motor: strength not 5/5 throughout Extrem General: normal gait and edema (lower) Laterality: bilateral Objective Last Vital Signs Temp 36.5 C 02/28/23 11:04 Pulse 61 02/28/23 11:04 Resp 16 02/28/23 11:04 BP 104/75 02/28/23 11:04 Pulse Ox 97 02/28/23 11:04 Laboratory Results - last 24 hr 02/28/23 06:10 APTT 82.2 H* Time Spent with Patient Time Spent with Patient: 25-34 minutes Time was spent: preparing to see the patient(eg.review tests), obtaining and/or reviewing separately otained hiistory, ordering medications,tests, procedures, referring, communicating with other health child care centre director and counseling the patient
[2023-02-28] MEDS: Docusate Sodium 100 MG CAP PO (15:02)
--- NOTE | 2023-02-28 15:43 | CMPROGNOTE_ITS ---
Date of service: 02/28/23 Time of Service: 15:43 Care Management Progress Note Progress Note Text Progress Note Text: S/O: Matthias was lying in bed when CM met with him. His niece was in the room visiting, and stated that Filiberto has questions regarding his discharge plan. CM and the hospitalist both met with Filiberto to review his questions and concerns. Filiberto stated that Matthias's mobility has significantly decreased in the last three weeks; PT eval has been ordered, and recommendations will be made based on that evaluation. Filiberto and Matthias would like to meet with hospice to discuss expectations and options; CM called [facility], awaiting a return call. Filiberto had some questions for the oncologist, which they will see outpatient. Filiberto also asked if Matthias would return home with a catheter; per provider, he can if it is easier/more comfortable, and HH RN will assist with the care, but he can be taught as well. Per DATA DEVELOPER, he will return home with a new prescription of Eliquis or Xarelto; Eliquis will be $450/month ( can provide one coupon for thirty days free), Xarelto will be $142/mo. CM informed that he may discharge over the weekend with new HH RN, PT, OT, EAR MUFF ASSEMBLER. CM will continue to follow. A: Matthias is a 72 year old male admitted on 02/26/23 with bilateral PE, oligodendroglioma. P: Anticipate Matthias will return home once medically cleared. He will benefit from HH RN, PT, OT, EAR MUFF ASSEMBLER. Palliative will follow him outpatient. His partner, Filiberto will drive him home via private vehicle. He will follow up with his PCP and discharge plan of care. CM will continue to follow.
--- NOTE | 2023-02-28 16:51 | PT.INIE ---
PT Notes Visit Reasons: Bilateral PE, Oligodendroglioma Inpatient Physical Therapy Evaluation Date: 02/28/23 Referring Doctor: Rachael Garcia NP PT Orders: PT CONSULT: discharge planning Precautions: fall, standard Patient Profile/Admitting Diagnosis: Patient admitted for medical management of PE in the presence of oligodendroglioma and recent decline in mobility. PT consult requested for assessment of mobility. Social History/Home Situation: Patient lives with his , Filiberto, in a single level home with ramp to enter. Was ambulatory with walker up until a few weeks ago. Since then, he has been dependent on Filiberto for all transfers and bed mobility. He requires a great deal of assistance to sit up in bed, the requires nearly total assist to stand-step to his wheelchair. He suffered a recent fall in the bathroom after trying to transfer on his own. Equipment Owned/DME: w/c, ramp, commode Subjective: Matthias states that his breathing feels a bit better. He is agreeable to consultation. Objective: General Observation: Resting in bed with Vela catheter, no additional lines. Mental Status: A&Ox3. Reliant on Filiberto for majority of history. ROM: Right Upper Extremity: Shoulder flexion 90* AAROM. Otherwise WFL Left Upper Extremity: Shoulder flexion 120* AAROM. Otherwise WFL. Right Lower Extremity: Grossly WFL Left Lower Extremity: Grossly WFL Strength: Right Upper Extremity: Shoulder flexion 3-/5. Biceps 3+/5. Triceps 3+/5. Incising Machine Operator is weak. Left Upper Extremity: Shoulder flexion 3-/5. Biceps 4/5. Triceps 4/5. Incising Machine Operator is weak. Right Lower Extremity: Hip flexion 3-/5. Quads 3-/5. Ankle DF 3/5. functionally unable to perform SLR, and only able to complete partial heel slide. Left Lower Extremity: Hip flexion 3/5. Quads 3/5. Ankle DF 3/5. Able to perform partial SLR and full heel slide. Sensation: intact distally to light touch Bed Mobility/Transfers: supine-sit: mod A x 2 with HOB elevated to 30* sit-stand: mod A x 2 in steady lift stand-sit: mod A x 2 from steady lift bed-chair: mod A x 2 with steady lift Gait: unable Balance: Static Sitting: fair (mod A at the trunk and heavy reliance on UE support) Dynamic Sitting: poor Static Standing: poor Dynamic Standing: unable Special Tests: Mobility Limitations Standardized Measure [facility] AM-PAC 6 clicks Basic Mobility Inpatient Short Form: Raw Score: 10 Standardized Score: 77% impairment Informed Consent/Education: Patient instructed in purpose of PT consult and plan of care. Treatment: Initial Evaluation (83178) Therapeutic Exercises (83759): Instructed in the following exercises for LE strengthening: SLR 10x each (mod A to RLE, independent on left within limited range) heel slides 10x each (very limited range on right) ankle pumps 10x chair push ups x 2 Assessment: Patient is a 72 year old male referred to physical therapy services for discharge planning during acute care stay for management of PE. Patient presents with increasing mobility impairments, with significant decline in mobility over the past several weeks. He requires a significant amount of care at baseline, and discharge planning will be dependent on goals of care. He will require PT intervention to maximize participation in transfers, and will likely require SNF stay vs hospice level care with equipment needs, again, depending on goals. He is currently not safe to return home given the level of assistance needed for all transfers and mobility. He currently demonstrates the following impairment level findings: 1. Decreased RLE strength 2. Decreased LLE strength 3. Decreased activity tolerance 4. decreased trunk strength Impairments are contributing to the following functional limitations: 1. dependent for bed mobility 2. dependent for transfers 3. unable to ambulate Patient is assessed as Moderate 67808 complexity based on the following: History: Patient is a 72 year old male admitted for medical management of PE in the presence of oligodendroglioma. He presents with increasing limitations and need for assistance at home. He is not currently safe to return home without equipment for transfer assist, and recommend SNF vs hospice level care with assessment for equipment needs. Examination: functional limitations as noted above Presentation: evolving Decision Making: moderate Goals: Goals X1 week 1. Supine-Sit : min A 2. Sit-Supine : min A 3. Sit-Stand : min A 4. Stand-Sit : min A 5. Bed-Chair : FWW and mod A x 1 6. Chair-Bed : FWW and mod A x 1 Plan of Care/Treatment Plan: 1-2x/day, 7 days/week x 1 week. Plan of care has been reviewed with the 4 H YOUTH DEVELOPMENT SPECIALIST providing the service under Physical Therapy direction. Initiate Physical Therapy intervention for strengthening, bed mobility, transfers, gait, stairs, balance training, use of assistive device. DISCHARGE RECOMMENDATIONS: SNF for continued rehabilitation TREATMENT CODE/TIME: [id number] ([id number]) Juliette Chow, PT, DPT [facility] All Active Problems (Updated 02/27/23 @ 10:15 by Dedra Coffey MD) Oligodendroglioma of brain (Acute) Advanced care planning/counseling discussion (Acute) Palliative care encounter (Acute) Pulmonary embolism (Acute) Breath shortness (Acute) Depressive disorder due to separate medical condition (Chronic) Unintentional weight loss of more than 7.5% body weight within 3 months (Acute) Hyperbilirubinemia (Acute) Altered taste (Acute) Oligodendroglioma (Chronic 07/02/21) Grade 2 Glioma of brain (Acute) Loss of consciousness (Acute) Essential hypertension (Chronic) Iron overload (Acute) 05/22/20 [facility] [place] Hereditary hemochromatosis (Chronic) 05/22/20 [facility] [place], phlebotomies to maintain goal of ferritin <100, monthly labs Diabetes mellitus (Chronic) Bronze diabetes (Chronic) Diagnosed 02/23 Family hx of colon cancer (Acute) Encounter for colonoscopy in patient with family history of colon cancer (Acute) Colorectal polyps (Acute) Medical History Asthma HTN (hypertension) Seizure (~2021) onset at time of brain tumor diagnosis, last episode in 2022 Surgical History History of colonoscopy x3 No significant past surgical history
[2023-02-28 20:13] LABS: PSA, Screening <0.1 ng/mL (<=6.5)
[2023-02-28] MEDS: Rivaroxaban 15 MG TABLET PO (20:27)
[2023-02-28] MEDS: Melatonin 3 MG TAB PO (23:28)
[2023-03-01 02:12] VITALS: BP 129/80; PULSE 58; RESP 18; TEMP 35.5; O2SAT 98
[2023-03-01 07:00] VITALS: PULSE 56
[2023-03-01 07:43] VITALS: BP 123/81; PULSE 57; TEMP 35.4; O2SAT 99
[2023-03-01] MEDS: Cholecalciferol (Vitamin D3) 400 UNIT TAB PO (08:09)
[2023-03-01] MEDS: Lacosamide 100 MG TAB PO (08:09)
[2023-03-01] MEDS: Glucosamine/Chondroitin CAP 1 CAP PO (08:09)
[2023-03-01] MEDS: Magnesium Gluconate 500 MG TAB PO (08:09)
[2023-03-01] MEDS: Escitalopram 10 MG TAB PO (08:10)
[2023-03-01] MEDS: Dexamethasone 4 MG TAB 2 MG PO (08:11)
[2023-03-01] MEDS: Lisinopril 10 MG TAB PO (08:12)
[2023-03-01] MEDS: Normal Saline Flush 10 ML SYR IVP (08:12)
[2023-03-01] MEDS: Rivaroxaban 15 MG TABLET PO (08:12)
[2023-03-01 11:10] VITALS: BP 111/80; PULSE 51; TEMP 35.9; O2SAT 98
[2023-03-01] MEDS: Insulin Aspart 300 UNITS/3 ML PEN SC (12:01)
--- NOTE | 2023-03-01 14:46 | W.PM.PROGNOT ---
Date of Service Date of service: 03/01/23 Time of Service: 14:46 Assessment and Plan Assessment and plan (1) Pulmonary embolism: Status: Acute Assessment and plan: fairly immobilized and has left lower extremity DVT with bilateral PE which is quite extensive. continue IV heparinization and convert to oral He is presently on room air without hypoxemia. He is a DNR/DNI. palliative care consult pending (2) Oligodendroglioma: Status: Chronic Assessment and plan: extensive DVT left leg and bilateral PE. Evaluate and treat the patient on hold for chemotherapy and radiation therapy at this time considering palliative care. He is a DNR/DNI. MRI pending for today there was evidence of bony mets to ribs on CT scan. (3) Diabetes mellitus: Status: Chronic Assessment and plan: Glucometer measurements with insulin coverage while hospitalized. 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 (5) HTN (hypertension): Assessment and plan: Continue outpatient medical therapy adjusting as needed. (6) Asthma: Assessment and plan: Continue outpatient inhaler therapy. (7) Seizure: Assessment and plan: Continue outpatient therapy monitoring for recurrence patient is under stress. discussed with DR Mora Subjective Subjective Patient reports: no new complaints, feels better and afebrile Exam Const General: no acute distress, frail appearing and ill appearing chronically Nutritional Appearance: thin Orientation: alert, awake, oriented to person and oriented to place HENTN Head: normal to inspection and normocephalic Mouth: moist mucous membranes abnormal (slightly dry) Chest Chest: normal inspection of the chest Resp Effort & Inspection: normal respiratory effort Auscultation: diminished lung sounds Cardio Rate: regular rate Rhythm: regular rhythm GI Inspection: normal to inspection Palpation: soft Extrem General: edema (lower) Laterality: bilateral Objective Last Vital Signs Temp 35.9 C L 03/01/23 11:10 Pulse 51 L 03/01/23 11:10 Resp 18 03/01/23 02:12 BP 111/80 03/01/23 11:10 Pulse Ox 98 03/01/23 11:10
--- NOTE | 2023-03-01 15:20 | DI.CT_ITS ---
Exam(s) CT ABDOMEN PELVIS WO EXAM: CT ABDOMEN PELVIS WO CLINICAL HISTORY: survey for metastatic lesions found on CT. TECHNIQUE: Imaging Protocol: Axial computed tomography images with coronal and sagittal reformatted images were created and reviewed. COMPARISON: CT CT CHEST PE CTA from 02/26/2023 FINDINGS: The examination is limited due to patient motion artifact.. ABDOMEN: Lung Bases: There are small bilateral pleural effusions and subjacent infiltrates. Coronary artery c alcifications are present. Liver: Normal density. There are hypodensities seen within the liver. The largest is in the left lob e of the liver and measures 1.5 cm. Gallbladder and biliary tract: No radiodense calculus or biliary ductal dilation. Pancreas: Normal density, no abnormal calcifications or inflammatory process. Spleen: Splenomegaly. Kidneys: Normal size, contour and axis.No radiodense stones or obstructive uropathy. No masses seen. Adrenal glands: No mass is seen. Lymph nodes: There are enlarged retroperitoneal lymph nodes. The largest is in the upper abdomen and measures 2 x 1.5 cm. Abdominal Aorta: Abdominal portion non-dilated. Atherosclerosis. PELVIS: Bladder:Symmetric distention, no gross wall thickening. Bowel: There is a large amount of stool in the rectum without bowel wall thickening. There is consti pation seen in the colon. There is no evidence of bowel obstruction or bowel wall thickening. No ev idence of appendicitis is present. Peritoneal cavity: There is a small amount of abdominal pelvic ascites. No free air. Reproductive organs: Unremarkable as visualized. Bones: Within normal limits. Soft Tissues: There is mild edema seen in the subcutaneous tissues. IMPRESSION: 1. Hypodense lesions in the liver particularly in the left lobe. Metastatic disease should be consid ered. 2. Small amount of abdominal pelvic ascites. 3. Enlarged lymph nodes seen in the upper abdomen. These may be metastatic. RADIATION DOSE DELIVERED: 1,774.67mGy.cm Total DLP DATA REPOSITORY: All CT scans at this facility are submitted to the National Radiology Data Registry (NRDR) Dose Index Registry (DIR) with the [employer] (A[employer]). RADIATION OPTIMIZATION: All CT scans at this facility use at least one of these dose optimization te chniques: automated exposure control; mA and/or kV adjustment per patient size (includes targeted exa ms where dose is matched to clinical indication); or iterative reconstruction.
--- NOTE | 2023-03-01 15:30 | PT.INNT ---
Date of service: 03/01/23 Time of Service: 03:25 PT Notes Visit Reasons: Bilateral PE, Oligodendroglioma Patient unavailable due to CT scan
--- NOTE | 2023-03-01 15:50 | W.PM.DS.N ---
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 (5) HTN (hypertension): (6) Asthma: (7) Seizure: Discharge Plan Disposition Patient Disposition: Transfer-Acute Inpatient Care Specific Acute Inpt Facility: [facility] Condition: Stable Discharge Details Reason For Visit: Bilateral PE, Oligodendroglioma Admit Date/Time: 02/26/23 05:23 Admit Provider: Juancho Hughes Attending Provider: Juancho Hughes Primary Care Provider: Dayron Gusman [facility] Course Hospital Course: This is a 72-year-old followed at [facility] for oligodendroglioma by Dr Lim who presented to our emergency department at [facility] for complaints of rapidly progressive weakness to the point he was now wheelchair-bound. His work-up in the emergency department did reveal extensive bilateral pulmonary emboli. He was admitted to the medical surgical unit under hospitalist services on a heparin drip. Further work-up included ultrasound of his bilateral lower extremities which did show an extensive left lower extremity DVT. He had no evidence of right heart strain on echocardiogram with a normal EF of 58% with no wall motion abnormalities. He was oxygenating well on room air with no oxygen requirements. 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 Medically he remained stable with regards to his pulmonary emboli but he was not safe for discharge to home due to his profound weakness and ambulatory dysfunction. Physical therapy consultation was sought and recommendations were made for skilled rehabilitation. His case was discussed with Dr. Romeo oncology at [facility] who has accepted him in transfer for further work-up of his metastatic lesions. He is being transferred to [facility] by ground EMS. We did obtain a CAT scan of his abdomen and pelvis prior to discharge read is pending and will forward when available. Also pending is a PSA. She did request an MRI of the spine but this is not available today. Discharge discussed with Dr. Mora Home Meds and New Rx's Prescriptions: New rivaroxaban 15 mg (42)- 20 mg (9) tablets,dose pack See Rx Instructions .ROUTE .COMPLEX Qty: 51 0RF Rx Instructions: take one-15 mg tablet twice daily for 21 days, then one-20 mg tablet once daily; must take with meal/food No Action (DME) blood-glucose meter Misc See Rx Instructions .ROUTE .MEDSUPPLY Qty: 1 0RF Rx Instructions: To check blood glucose; Dx: E83.119, to maintain HbA1c less than 6.5%; dispense covered brand (DME) lancets Misc See Rx Instructions .ROUTE .MEDSUPPLY Qty: 200 6RF Rx Instructions: Test QD; Dx: E83.119; to keep HbA1c less than 6.5%; dispense insurance preference [employer] Sport Shake 1 oz PO 3XD Qty: 28.4 6RF lisinopril 10 mg tablet 10 mg PO DAILY Qty: 90 3RF glucosamine-chondroitin [Osteo Bi-Flex] 250-200 mg tablet 1 tab PO QPC turmeric 400 mg capsule 400 mg PO DAILY magnesium gluconate [Mag-G] 27 mg magnesium (500 mg) tablet 27 mg PO DAILY cholecalciferol (vitamin D3) 10 mcg (400 unit) capsule 10 mcg PO DAILY (DME) Blood Glucose Test Strip See Rx Instructions .ROUTE .MEDSUPPLY Qty: 100 6RF Rx Instructions: Test daily; Dx: E11.9; to keep HbA1c less than 6.5%; dispense insurance preference escitalopram oxalate 10 mg tablet 10 mg PO DAILY Qty: 60 1RF lacosamide 100 mg tablet 100 mg PO BID Patient Comments: TAKE ONE TABLET BY MOUTH EVERY 12 HOURS Discharge Instructions Activity:: Activity as Tolerated Equipment/Supplies:: No Equipment Needed Diet:: npo Discharge Orders Discharge Orders: Discharge Order (Routine); Ordered 03/01/23 Ordered By: Rachael Garcia DS: Summary Time Spent with Patient providing and/or coordinating discharge services: Greater than 30 minutes Status at Discharge Functional status at discharge: bed bound Overall status at discharge: patient is not back to baseline Mental Status: mental status grossly normal Speech and Movement: speech and movement normal Mood: congruent mood Affect: normal affect Exam Const General: no acute distress, frail appearing and ill appearing chronically Nutritional Appearance: thin Orientation: alert, awake, oriented to person and oriented to place HENMO Head: normal to inspection and normocephalic Mouth: moist mucous membranes abnormal (slightly dry) Chest Chest: normal inspection of the chest Resp Effort & Inspection: normal respiratory effort Auscultation: diminished lung sounds Cardio Rate: regular rate Rhythm: regular rhythm GI Inspection: normal to inspection Palpation: soft Extrem General: edema (lower) Laterality: bilateral Psych Mental Status: mental status grossly normal Speech and Movement: speech and movement normal Mood: congruent mood Affect: normal affect DS: Data Vitals/I&O Vitals and I&O: Vital Signs Temperature 35.9 C L 03/01/23 11:10 Temperature Source Tympanic 03/01/23 11:10 Pulse 51 L 03/01/23 11:10 Pulse Rhythm Irregular 02/28/23 20:41 Respiratory Rate 18 03/01/23 02:12 Respiratory Effort Normal 02/28/23 20:41 Respiratory Depth Normal 02/28/23 20:41 Respiratory Pattern Normal 02/28/23 20:41 Blood Pressure 111/80 03/01/23 11:10 Blood Pressure Mean 75 02/26/23 06:16 Blood Pressure Position Supine 02/26/23 02:26 Pulse Oximetry 98 03/01/23 11:10 Oxygen Delivery Method Room Air 03/01/23 11:10 Oxygen Flow Rate 0 03/01/23 11:10 Pain Level 0 03/01/23 07:43 Comment bp called over the radio 02/26/23 15:23 Intake & Output 02/28/23 03/01/23 03/01/23 23:59 11:59 23:59 Intake Total 1508.983 / 3064.517 360 / 360 Output Total 700 / 700 Balance 1508.983 / 2864.517 360 / -340 -700 / -340 Intake: IV 1028.983 / 2144.517 Oral 480 / 920 360 / 360 Output: Urine 700 / 700 Other: Urine Color Yellow Light Liza Urine Appearance Clear Clear Urine Odor None Comment x2 large voids incontinent because condom cath keeps sliding off. Stool Size Moderate Stool Characteristics Formed Brown PFSH All Active Problems (Updated 02/27/23 @ 10:15 by Dedra Coffey MD) Oligodendroglioma of brain (Acute) Advanced care planning/counseling discussion (Acute) Palliative care encounter (Acute) Pulmonary embolism (Acute) Breath shortness (Acute) Depressive disorder due to separate medical condition (Chronic) Unintentional weight loss of more than 7.5% body weight within 3 months (Acute) Hyperbilirubinemia (Acute) Altered taste (Acute) Oligodendroglioma (Chronic 07/02/21) Grade 2 Glioma of brain (Acute) Loss of consciousness (Acute) Essential hypertension (Chronic) Iron overload (Acute) 05/22/20 [facility] [place] Hematology Hereditary hemochromatosis (Chronic) 05/22/20 [facility] [place] Hematology, phlebotomies to maintain goal of ferritin <100, monthly labs Diabetes mellitus (Chronic) Bronze diabetes (Chronic) Diagnosed 02/23 Family hx of colon cancer (Acute) Encounter for colonoscopy in patient with family history of colon cancer (Acute) Colorectal polyps (Acute) Medical History Asthma HTN (hypertension) Seizure (~2021) onset at time of brain tumor diagnosis, last episode in 2022 Surgical History History of colonoscopy x3 No significant past surgical history Family History Father , late 60's Adenocarcinoma Colon and lung Diabetes Sister , age 50 Ovarian cancer Sister Breast cancer FHx: mental illness maybe Bipolar Seizures FH: hemochromatosis Social History Smoking/Tobacco Use Status: Never Smoking risk assessment performed?: Yes Alcohol Intake: current Alcohol Intake frequency: holidays/special occasions only Details: Social drinking Drug use: Never Substance use type: does not use Adopted: No Caregiver/Support person: Yes (partner) Foster care: No Household members: significant other Housing: house Number of Children: 0 number of grandchildren: 0 Communication Needs: Corrective Lenses Education Level: high school Details: With a couple of post high school grad classes Do you need help understanding health information?: Rarely current occupation: retired Pets and animals: No Sexually active: No Do you think of yourself as: lesbian/damon/homosexual Current gender identity: male What is your relationship status?: living with partner How often do you talk on the phone with friends or family?: three or more times per week How often do you get together with friends or relatives?: once per week Do you belong to any clubs or organized social groups?: no Panel score (0-1 are the most socially isolated patients): 2 What type of physical activity do you participate in: additional Details: Exercise limited due to recent chemo; will start using [email or web address] machine Frequency: 5-6 times per week Chen/Catholic: Mandaen Special chen needs: No Seatbelt use: always Helmet use: Yes Drive intox or ride w/intox port cdl a driver: No Working smoke detector in home: Yes Fire extinguisher in home: No Carbon monox detector in home: Yes Do you feel safe at home: Yes Do you feel safe in your relationship?: Yes Time Spent with Patient Time Spent with Patient: 45-69 minutes Time was spent: preparing to see the patient(eg.review tests), ordering medications,tests, procedures, referring, communicating with other health healthcare recruiter, counseling the patient and care coordination
--- NOTE | 2023-03-01 16:24 | PDOC.CMDIS ---
Date of service: 03/01/23 Time of Service: 16:25 LACE Index Scoring Tool Questions: Length of Stay (in days): 3 Was the patient admitted via the E.D.?: Yes Comorbidities: Diabetes w/o Complication and Any Tumor E.D. Visits: 2 Answers: Total Score: 11 Risk of Readmission: High Risk Care Management Discharge Plan Reason for Hospitalization: Bilateral PE, Oligodendroglioma Discharge Plan: Matthias will be transferred to [facility] later today for further workup regarding his cancer. The transfer was requested by Matthias and his family and the Oncology team at [facility] agreed. Matthias was also seen by [facility] hospice nurse today, at their request, to explain the program and to answer questions. Matthias will transport via EMS coordinated by nursing supervisor seaming and will follow their plan of care as directed. Patient/Family Education Needs: Review discharge instructions and limitations, discussion of self care needs including ask me three and goals of care. Services Needed at Discharge: Transportation
--- NOTE | 2023-03-01 16:36 | DI.VRAD_ITS ---
PROCEDURE INFORMATION: Exam: CT Abdomen And Pelvis Without Contrast Exam date and time: 03/01/2023 3:25 PM Age: 72 years old Clinical indication: Other: Survey for metastatic lesions found on CT TECHNIQUE: Imaging protocol: Computed tomography of the abdomen and pelvis without contrast. COMPARISON: US ABDOMEN 01/21/2023 8:30 AM FINDINGS: Lungs: There are small bilateral pleural effusions with mild right and moderate left lung base atelectasis. Coronary arteries: Coronary artery calcifications/stents identified. Liver: Mild nodularity change to the hepatic surface with patchy geographic fatty infiltration. There are some heterogeneous left lobe low-density lesions, indeterminate. Gallbladder and bile ducts: Normal. No calcified stones. No ductal dilation. Pancreas: Normal. No ductal dilation. Spleen: Splenomegaly. Adrenal glands: Normal. No mass. Kidneys and ureters: Normal. No hydronephrosis. Stomach and bowel: Unremarkable. No obstruction. No mucosal thickening. Appendix: No evidence of appendicitis. Intraperitoneal space: Mild ascites. Vasculature: [id number] atherosclerotic change present in the vasculature. Lymph nodes: See Soft tissues finding. Urinary bladder: Unremarkable as visualized. Reproductive: Unremarkable as visualized. Bones/joints: Unremarkable. No acute fracture. Soft tissues: Soft tissue nodule adjacent to the gastric fundus series 2 image 24 measuring 14 mm. Consider accessory splenic ossicle versus possible lymph node. Other findings: Moderate fecal retention pattern. IMPRESSION: 1. Abnormal hepatic findings of concern for underlying metastatic disease. 2. Mild ascites. 3. Perigastric lymph node versus accessory splenic ossicle with associated splenomegaly. Dictated and Authenticated by: Ernestine Chand MD. Ordering:ROSALIND Cano MD
--- NOTE | 2023-03-03 08:32 | INDS_ITS ---
PT Notes Visit Reasons: Bilateral PE, Oligodendroglioma Patient seen for initial evaluation only. He was then transferred to [facility] [[email or web address] for further work up. Please see initial evaluation for specifics regarding mobility and discharge planning. Discharge from PT at this facility.
== END 2023-03-01 17:02 | disposition short-term general hospital (02) | DRG 176 ==
LOC: ER 06:02 → MS 06:43
PROVIDERS: Internal Medicine; Nurse Practitioner Acute Care; Admitting Provider Family Medicine; Emergency Provider Student in an Organized Health Care Education/Training Program; PCP Family Medicine; Visit Provider Family Medicine
DX: I26.99 Other pulmonary embolism without acute cor pulmonale (principal); C71.9 Malignant neoplasm of brain, unspecified; I82.412 Acute embolism and thrombosis of left femoral vein; I82.442 Acute embolism and thrombosis of left tibial vein; I82.432 Acute embolism and thrombosis of left popliteal vein; E11.9 Type 2 diabetes mellitus without complications; F32.9 Major depressive disorder, single episode, unspecified; I10 Essential (primary) hypertension; J45.909 Unspecified asthma, uncomplicated; R56.9 Unspecified convulsions; E83.110 Hereditary hemochromatosis; Z66 Do not resuscitate; R63.4 Abnormal weight loss; R60.0 Localized edema; R26.2 Difficulty in walking, not elsewhere classified; R53.1 Weakness; Z99.3 Dependence on wheelchair; Z68.22 Body mass index [BMI] 22.0-22.9, adult; Z80.0 Family history of malignant neoplasm of digestive organs
CPT/HCPCS: 36556; 36415; 70553; 71275; 80048; 80053; 82805; 84153; 85027; 87637; 93005; 97162; 97530; 99291; 70450; 74176; 81003; 83605; 83735; 83880; 84443; 84484; 85025; 85610; 85730; 93010; 93306; 93970; 99223; 99233; 99239; J3490; J8540

== ENCOUNTER 2023-03-17 15:03 | Outpatient (REF) | payer MEDICARE, BC, SELFPAY ==
[2023-03-17 14:08] LABS: Anion Gap 7.2 mmol/L (3-11); BUN 39 mg/dL (7-18); CO2 24.8 mmol/L (21.0-32.0); CREATININE 0.8 mg/dL (0.70-1.30); Calcium 9.4 mg/dL (8.5-10.1); Chloride 99 mmol/L (98-107); Estimated GFR 93.45 (mL/min/1.73m2); Glucose 164 mg/dL (74-106); Potassium 5.3 mmol/L (3.5-5.1); Sodium 131 mmol/L (136-145)
== END 2023-03-17 15:04 | disposition home or self-care (01) ==
LOC: LBN 15:03
PROVIDERS: PCP Family Medicine; Visit Provider Family Medicine
DX: I10 Essential (primary) hypertension (principal); E11.9 Type 2 diabetes mellitus without complications; I26.99 Other pulmonary embolism without acute cor pulmonale
CPT/HCPCS: 80048